=== PATIENT | male | born 1990 | race Caucasian/White ===

== ENCOUNTER 2021-03-06 01:50 | Inpatient (IN) | payer MEDICARE, OTHER ==
[2021-03-06] MEDS ORDERED: ACETAMINOPHEN TAB 500 MG TAB PO STA (01:54)
[2021-03-06] MEDS ORDERED: VANCOMYCIN IV PER PHARMACY 1 EACH MISC MISCELLANE PRN (01:55)
--- NOTE | 2021-03-06 01:59 | ED ---
Chest Pain HPI - General Stated Complaint: Chest Pain Time Seen by Provider: 03/06/21 01:54 Source: RN notes reviewed, old records reviewed Mode of arrival: EMS Limitations: no limitations - History of Present Illness Initial Comments: This is a 30-year-old male DF for evaluation patient does abuse heroin, patient coming in for fever altered mental status not acting appropriately. Patient's brought in by EMS patient's unable to give history does complain of chest pain bodyaches body pain other than illicit drug history patient has no medical history MD Complaint: chest pain, other (Bodyaches and pain) -: unknown Onset: associated with drug use Pain Location: substernal Severity scale (1-10): 7 Quality: tightness, heaviness Consistency: constant Improves With: nothing Worsens With: nothing Context: recent illness Anginal Symptoms: nausea, vomiting, diaphoresis, dyspnea Other Symptoms: palpitations Treatments Prior to Arrival: none - Related Data Home Medications Medication Instructions Recorded Confirmed No Known Home Medications 03/06/21 03/06/21 Allergies Allergy/AdvReac Type Severity Reaction Status Date / Time tramadol [From Ultram] AdvReac Mild Unknown Verified 03/06/21 06:27 Review of Systems ROS Statement: Those systems with pertinent positive or pertinent negative responses have been documented in the HPI. ROS Other: All systems not noted in ROS Statement are negative. EKG Findings - EKG Comments: EKG Findings:: EKG sinus tachycardia 132 AR 166 QRS 90 QTC 426 Past Medical History - Past Family History Father Additional Family Medical History / Comment(s): Father lives in [place] and had an injury and is disabled. Mother Family Medical History: Vascular Disorder Additional Family Medical History / Comment(s): Mother of a brain aneurysm. Sister(s) Family Medical History: No Reported History Additional Family Medical History / Comment(s): pt lives with his sister. General Exam General appearance: alert, anxious, in distress Head exam: Present: atraumatic, normocephalic, normal inspection Eye exam: Present: normal appearance, PERRL, EOMI. Absent: scleral icterus, conjunctival injection, periorbital swelling ENT exam: Present: normal exam, mucous membranes dry Neck exam: Present: normal inspection. Absent: tenderness, meningismus, lymphadenopathy Respiratory exam: Present: normal lung sounds bilaterally. Absent: respiratory distress, wheezes, rales, rhonchi, stridor Cardiovascular Exam: Present: normal rhythm, tachycardia, normal heart sounds. Absent: systolic murmur, diastolic murmur, rubs, gallop, clicks GI/Abdominal exam: Present: soft, normal bowel sounds. Absent: distended, t enderness, guarding, rebound, rigid Extremities exam: Present: normal inspection, full ROM, normal capillary refill. Absent: tenderness, pedal edema, joint swelling, calf tenderness Back exam: Present: normal inspection Neurological exam: Present: alert, oriented X3, CN II-XII intact Psychiatric exam: Present: normal affect, normal mood Skin exam: Present: warm, dry, intact, normal color. Absent: rash Course Vital Signs 03/06/21 03/06/21 03/06/21 01:57 03:29 04:48 Temperature 102.7 F H 98.8 F Pulse Rate 140 H 128 H 123 H Respiratory 22 22 24 Rate Blood Pressure 114/78 107/71 109/71 O2 Sat by Pulse 96 97 97 Oximetry 03/06/21 03/06/21 03/06/21 06:18 07:49 08:00 Temperature 98.3 F Pulse Rate 125 H 125 H 125 H Respiratory 22 22 22 Rate Blood Pressure 120/84 110/70 O2 Sat by Pulse 100 100 100 Oximetry 03/06/21 03/06/21 03/06/21 09:00 10:00 11:00 Temperature Pulse Rate 118 H 114 H 120 H Respiratory 22 22 22 Rate Blood Pressure 114/77 119/74 O2 Sat by Pulse 100 100 100 Oximetry 03/06/21 03/06/21 03/06/21 12:00 13:00 14:00 Temperature Pulse Rate 118 H 122 H 122 H Respiratory 22 22 22 Rate Blood Pressure 126/87 O2 Sat by Pulse 100 100 100 Oximetry 03/06/21 03/06/21 03/06/21 15:00 16:00 17:00 Temperature Pulse Rate 110 H 125 H 128 H Respiratory 22 22 22 Rate Blood Pressure 125/89 O2 Sat by Pulse 100 100 100 Oximetry 03/06/21 17:15 Temperature 98.3 F Pulse Rate 128 H Respiratory 22 Rate Blood Pressure 125/89 O2 Sat by Pulse 100 Oximetry - Reevaluation(s) Reevaluation #1: Medical record is reviewed Patient remains in severe distress Significantly altered secondary to likely mild drug ingestion currently with severe fever likely bacteremia Chest Pain MDM - MDM 30 male to the ER for chest pain patient has likely bacteremia secondary to IV drug abuse. Patient will be admitted on IV antibiotics Critical Care Time Critical Care Time: Yes Total Critical Care Time: 31 Disposition Clinical Impression: Fever, Bacteremia, Sepsis Disposition: ADMITTED IP TO THIS HOSP Condition: Fair Is patient prescribed a controlled substance at d/c from ED?: No
[2021-03-06] MEDS ORDERED: VANCOMYCIN 1,250 MG in SODIUM CHLORIDE 0.9% 250 ML IVPB STA (02:10)
--- NOTE | 2021-03-06 02:10 | XR ---
EXAM: XR Chest, 1 View CLINICAL HISTORY: ITS.REASON XR Reason: Suspected COVID-19 pneumonia TECHNIQUE: Frontal view of the chest. COMPARISON: No relevant prior studies available. FINDINGS: Lungs: Bilateral patchy opacities. Pleural space: No acute findings Heart: No cardiomegaly. Bones/joints: No acute findings. IMPRESSION: Bilateral patchy opacities.
[2021-03-06] MEDS ORDERED: SODIUM CHLORIDE 0.9% 1,000 ML IV ONE (02:24)
[2021-03-06] MEDS ORDERED: HYDROmorphone 1 MG/ML 1 ML SYRINGE IVP PRN ×2 (02:54)
[2021-03-06] MEDS ORDERED: DIAZEPAM 5 MG/ML 2 ML INJ IVP STA (02:54)
[2021-03-06 03:09] LABS: Basophils % (A) 0 %; Eosinophils % (A) 0 %; HCT 37.3 % (39.0-53.0); HGB 12.2 gm/dL (13.0-17.5); Lymphocytes # (A) 0.4 k/uL (1.0-4.8); Lymphocytes % (A) 4 %; MCH 28.9 pg (25.0-35.0); MCHC 32.7 g/dL (31.0-37.0); MCV 88.4 fL (80.0-100.0); Mean Platelet Volume 9.5; Monocytes # (A) 0.6 k/uL (0-1.0); Monocytes % (A) 6 %; Neutrophils # (A) 8.1 k/uL (1.3-7.7); Neutrophils % (A) 88 %; RBC 4.22 m/uL (4.30-5.90); RDW 14.9 % (11.5-15.5); WBC 9.3 k/uL (3.8-10.6)
[2021-03-06 03:18] LABS: ALT 13 U/L (4-49); AST 23 U/L (17-59); African American GFR (CKD) >90 (>60 ml/min/1.73 sqM); Albumin 3.4 g/dL (3.5-5.0); Alkaline Phosphatase 138 U/L (38-126); Anion Gap 10 mmol/L; Blood Urea Nitrogen 20 mg/dL (9-20); Calcium 8.6 mg/dL (8.4-10.2); Carbon Dioxide 26 mmol/L (22-30); Chloride 91 mmol/L (98-107); Glucose 123 mg/dL (74-99); LDH 743 U/L (313-618); Magnesium 1.6 mg/dL (1.6-2.3); Non-African American GFR(CKD) >90 (>60 ml/min/1.73 sqM); Potassium 3.4 mmol/L (3.5-5.1); Sodium 127 mmol/L (137-145); Total Bilirubin 1.1 mg/dL (0.2-1.3); Total Protein 6.4 g/dL (6.3-8.2)
[2021-03-06 03:28] LABS: Platelet Count 55 k/uL (150-450)
[2021-03-06 03:54] LABS: C Reactive Protein 26.7 mg/dL (<1.0)
[2021-03-06] MEDS: SODIUM CHLORIDE 0.9% 500 ML 500 ML IV SCH ×2 (04:51→06:36)
[2021-03-06] MEDS: SODIUM CHLORIDE 0.9% 1,000 ML IV SCH ×3 (05:19→21:21)
[2021-03-06] MEDS ORDERED: HYDROmorphone 1 MG/ML 1 ML SYRINGE IVP STA (06:23)
[2021-03-06] MEDS ORDERED: ONDANSETRON 4 MG/2 ML VIAL IVP PRN (07:21)
[2021-03-06] MEDS ORDERED: POTASSIUM CHLORIDE ER 20 MEQ TAB.ER PO STA (07:22)
[2021-03-06] MEDS: ENOXAPARIN 40 MG/0.4 ML SYRINGE SQ SCH (07:46)
[2021-03-06] MEDS: MAGNESIUM OXIDE 400 MG TAB PO SCH ×2 (07:46→21:21)
[2021-03-06] MEDS: ACETAMINOPHEN TAB 325 MG TAB PO PRN (07:46)
[2021-03-06 08:05] LABS: Appearance,Urine Clear (Clear); Bacteria,Urine Rare /hpf; Bilirubin,Urine Negative (Negative); Blood,Urine Small (Negative); Color,Urine Yellow; Glucose,Urine (UA) Negative (Negative); Ketones,Urine Negative (Negative); Leukocyte Esterase,Urine Negative (Negative); Mucus,Urine Rare /hpf; Nitrite,Urine Negative (Negative); Protein,Urine Trace (Negative); RBC,Urine 1 /hpf (0-5); Specific Gravity,Urine 1.005 (1.001-1.035); WBC,Urine <1 /hpf (0-5)
--- NOTE | 2021-03-06 08:13 | P.HPIM ---
History of Present Illness H&P Date: 03/06/21 Chief Complaint: Nonspecific pain This is a 30-year-old male with past medical history of IV heroin use who presented to the emergency room with nonspecific pain in his right hip and his chest. Patient was awake and alert when I saw him. I saw him in the emergency room. He is a very poor historian. He said the EMS brought him into the hospital. He was not cooperative with answering my questions and kept complaining about pain and was requesting IV pain medications. He admitted that he last used IV heroin approximately 12 hours ago. He denies any fevers or chills otherwise. He was evaluated in the ER and was found to have evidence of sepsis without septic shock. He will be admitted to the hospital for further management. Review of Systems Review of system: 14 points review of systems were obtained and were negative except to what were mentioned in the HPI. Past Medical History Additional Past Medical History / Comment(s): Osteomyletis, infected heart valve. History of Any Multi-Drug Resistant Organisms: None Reported Past Surgical History: Orthopedic Surgery Additional Past Surgical History / Comment(s): Hip Past Psychological History: No Psychological Hx Reported, Anxiety Smoking Status: Current every day smoker Past Alcohol Use History: Occasional Past Drug Use History: Heroin, Marijuana, Methamphetamine, Opiates Medications and Allergies Home Medications Medication Instructions Recorded Confirmed Type No Known Home Medications 03/06/21 03/06/21 History Allergies Allergy/AdvReac Type Severity Reaction Status Date / Time tramadol [From Ultram] AdvReac Mild Unknown Verified 03/06/21 06:27 Physical Exam Vitals: Vital Signs Temp Pulse Resp BP Pulse Ox 03/06/21 07:49 98.3 F 125 H 22 110/70 100 03/06/21 06:18 125 H 22 120/84 100 03/06/21 04:48 98.8 F 123 H 24 109/71 97 03/06/21 03:29 128 H 22 107/71 97 03/06/21 01:57 102.7 F H 140 H 22 114/78 96 Intake and Output 03/05/21 03/06/21 03/06/21 22:59 06:59 14:59 Other: Weight 68.039 kg General: The patient is awake and alert, in no distress Eye: there is normal conjunctiva bilaterally. Neck: The neck is supple, there is no JVD. Cardiovascular: Normal S1-S2, no S3-S4, no murmurs. Respiratory: Lungs clear to auscultation bilaterally Gastrointestinal: Abdomen is soft, nontender Musculoskeletal: There is no pedal edema. Neurological:. Speech is normal. Skin: Skin is warm and dry Results CBC & Chem 7: 03/06/21 02:03/06/21 02:26 Labs: Abnormal Lab Results - Last 24 Hours (Table) 03/06/21 03/06/21 03/06/21 Range/Units 02: 02: 07:40 RBC 4.22 L (4.30-5.90) m/uL Hgb 12.2 L (13.0-17.5) gm/dL Hct 37.3 L (39.0-53.0) % Plt Count 55 L (150-450) k/uL Neutrophils # 8.1 H (1.3-7.7) k/uL Lymphocytes # 0.4 L (1.0-4.8) k/uL Sodium 127 L (137-145) mmol/L Potassium 3.4 L (3.5-5.1) mmol/L Chloride 91 L (98-107) mmol/L Glucose 123 H (74-99) mg/dL Alkaline Phosphatase 138 H (38-126) U/L Lactate Dehydrogenase 743 H (313-618) U/L C-Reactive Protein 26.7 H (<1.0) mg/dL Albumin 3.4 L (3.5-5.0) g/dL Urine Protein Trace H (Negative) Urine Blood Small H (Negative) Urine Bacteria Rare H (None) /hpf Urine Mucus Rare H (None) /hpf Assessment and Plan Assessment: This is a 30-year-old male with past medical history noted below that presented to the emergency room with chest pain. Patient was evaluated in the ER and admitted to the hospital for further management of his medical problems noted below. 1. Severe sepsis without septic shock: Lactic acid was not ordered in the ER I would order one stat. Source of infection possibly underlying pneumonia versus bacteremia. Urinalysis unremarkable. Covid-19 and influenza screen negative. 2. Suspected underlying pneumonia, started on broad spectrum antibiotic with vancomycin and ceftriaxone. I ordered pro-calcitonin for further evaluation. Blood culture sent and pending. 3. Chest pain, mostly atypical in nature. 12-lead EKG showed no acute ischemic changes. Serial troponin negative 2. I would obtain d-dimer for further evaluation 4. Heroin abuse, counseled extensively to quit. I started the patient on 0.1 mg of clonidine 3 times a day for withdrawal symptoms 5. Hypovolemic hyponatremia, continue IV fluid hydration 6. Hypokalemia and hypomagnesemia, replacement ordered 7. DVT prophylaxis with subcu Lovenox Today, patient was exhibiting IV pain medication seeking behavior. I counseled him extensively that he cannot get IV pain medication and we can use [place] for nonspecific pain. We will continue supportive care otherwise. Aggressive IV fluid hydration with normal saline at 130 met per hour. Repeat lab work in the morning.
[2021-03-06] MEDS ORDERED: HYDROcodone/APAP 5-325MG 1 EACH TAB PO PRN (09:37)
[2021-03-06] MEDS ORDERED: cloNIDine HCL 0.2 MG TAB PO SCH (09:45)
[2021-03-06] MEDS: cloNIDine HCL 0.1 MG TAB PO SCH ×3 (10:04→21:21)
[2021-03-06] MEDS: VANCOMYCIN 1,250 MG in SODIUM CHLORIDE 0.9% 250 ML IVPB SCH ×2 (11:35→17:05)
--- NOTE | 2021-03-06 12:34 | ECHOF ---
Referral Reason:endocarditis MEASUREMENTS -------- HEIGHT: 170.2 cm WEIGHT: 72.6 kg BP: IVSd: 1.1 cm (0.6 - 1.1) LVIDd: 4.3 cm (3.9 - 5.3) LVPWd: 1.1 cm (0.6 - 1.1) IVSs: 1.3 cm LVIDs: 3.2 cm LVPWs: 1.7 cm LA Diam: 3.0 cm (2.7 - 3.8) Ao Diam: 3.5 cm (2.0 - 3.7) AV Cusp: 2.2 cm (1.5 - 2.6) LA Diam: 3.9 cm (2.7 - 3.8) MV EXCURSION: 26.483 mm (> 18.000) MV EF SLOPE: 125 mm/s (70 - 150) EPSS: 0.2 cm MV E Isma: 1.07 m/s MV DecT: 125 ms MV A Isma: 1.21 m/s MV E/A Ratio: 0.89 RAP: 5.00 mmHg RVSP: 46.55 mmHg FINDINGS -------- Sinus rhythm. Undetermined rhythm. This was a technically good study. LV size, wall thickness and systolic function are normal, with an EF greater than 55%. The left albina tricular size is normal. The left atrial size is normal. The right atrial size is normal. The aortic valve is trileaflet, and appears structurally normal. No aortic stenosis or regurgitation. Mild mitral regurgitation is present. Cannot exclude vegeation on he PMVL. Moderate tricuspid regurgitation present. There is mild pulmonary hypertension. The right ventric ular systolic pressure, as measured by Doppler, is 46.55mmHg. Vegetation noted on TV Leaflets. There is no pulmonic regurgitation present. The aortic root size is normal. There is no pericardial effusion. CONCLUSIONS -------- 1. LV size, wall thickness and systolic function are normal, with an EF greater than 55%. 2. The left atrial size is normal. 3. The aortic valve is trileaflet, and appears structurally normal. No aortic stenosis or regurgitati on. 4. Mild mitral regurgitation is present. 5. Cannot exclude vegeation on he PMVL. 6. Moderate tricuspid regurgitation present. 7. There is mild pulmonary hypertension. 8. Vegetation noted on TV Leaflets. 9. There is no pericardial effusion. TRAVEL PTA: Marialuisa Durant RDCS
--- NOTE | 2021-03-06 15:56 | CT ---
EXAMINATION TYPE: CT chest angio for PE DATE OF EXAM: 03/06/2021 COMPARISON: Chest x-ray earlier today. HISTORY: Shortness of breath and chest pain CT DLP: 268.7 mGycm Automated exposure control for dose reduction was used. CONTRAST: CT Chest for pulmonary embolism performed with with IV Contrast, patient injected with 100 mL of Isov ue 370. FINDINGS: LUNGS: Correlating with recent x-ray there are multifocal groundglass opacities and more prominent or ganizing consolidations bilaterally. There are some more suspicious areas of nodularity and/or nodula r consolidation to need to be followed to resolution. No pleural effusion or pneumothorax seen bilate rally. MEDIASTINUM: There is suboptimal study with most dense contrast in SVC. Opacification of thoracic a fransisca without aneurysm or dissection. Suboptimal opacification of pulmonary arteries without central p ulmonary embolism, smaller segmental and subsegmental PE cannot be excluded on this study There are p rominent and enlarged bilateral hilar lymph nodes along with prominent prevascular, AP window, and lee bcarinal lymph nodes. No pericardial effusion is seen. OTHER: Visualized portion of the liver and spleen are prominent. Slight scoliotic curvature. IMPRESSION: 1. Suboptimal study, no large central pulmonary embolism. Cannot exclude smaller segmental and subseg mental pulmonary emboli on this study. 2. Bilateral multifocal organizing consolidations and less prominent groundglass opacities could refl ect product of covid-19 infection, other infectious etiologies not excluded. Septic emboli is in diff erential. Reactive thoracic adenopathy suspected. Follow-up study advised to rule out underlying nodu les. Suspected hepatosplenomegaly, correlate clinically.
[2021-03-06] MEDS: METHADONE 10 MG TAB PO SCH ×2 (16:39→21:20)
[2021-03-06] MEDS ORDERED: ACETAMINOPHEN IV (For NPO) 1,000 MG in EMPTY BAG 1 BAG IVPB STA (17:49)
[2021-03-07] MEDS: VANCOMYCIN 1,250 MG in SODIUM CHLORIDE 0.9% 250 ML IVPB SCH ×2 (01:03→09:46)
[2021-03-07] MEDS: ACETAMINOPHEN TAB 325 MG TAB PO PRN ×2 (03:22→14:46)
[2021-03-07 07:41] LABS: Glucose,Whole Blood 138 mg/dL (75-99)
[2021-03-07] MEDS ORDERED: VANCOMYCIN TROUGH DUE 1 EACH MISC MISCELLANE ONE (08:00)
[2021-03-07] MEDS: METHADONE 10 MG TAB PO SCH ×2 (08:13→21:04)
[2021-03-07] MEDS: MAGNESIUM OXIDE 400 MG TAB PO SCH ×2 (08:14→21:05)
[2021-03-07] MEDS: cloNIDine HCL 0.1 MG TAB PO SCH ×3 (08:14→21:04)
[2021-03-07 08:23] LABS: African American GFR (CKD) >90 (>60 ml/min/1.73 sqM); Anion Gap 5 mmol/L; Blood Urea Nitrogen 7 mg/dL (9-20); Calcium 7.8 mg/dL (8.4-10.2); Carbon Dioxide 28 mmol/L (22-30); Chloride 101 mmol/L (98-107); Glucose 113 mg/dL (74-99); Magnesium 1.9 mg/dL (1.6-2.3); Non-African American GFR(CKD) >90 (>60 ml/min/1.73 sqM); Potassium 3.1 mmol/L (3.5-5.1); Sodium 134 mmol/L (137-145)
[2021-03-07] MEDS: ENOXAPARIN 40 MG/0.4 ML SYRINGE SQ SCH (09:45)
[2021-03-07] MEDS: SODIUM CHLORIDE 0.9% 1,000 ML IV SCH ×2 (09:46→21:07)
[2021-03-07] MEDS ORDERED: POTASSIUM CHLORIDE ER 20 MEQ TAB.ER PO STA (10:28)
--- NOTE | 2021-03-07 10:37 | P.PN ---
Subjective Progress Note Date: 03/07/21 Patient is doing well today. He is still having fever overnight. He said that he did not sleep well last night. No acute events overnight reported by nursing staff. Objective - Vital Signs Vital signs: Vital Signs Temp 98.7 F 03/07/21 08:00 Pulse 116 H 03/07/21 08:14 Resp 20 03/07/21 08:00 BP 120/66 03/07/21 08:00 Pulse Ox 99 03/07/21 08:00 Intake & Output 03/06/21 03/07/21 03/07/21 18:59 06:59 18:59 Intake Total 100 Output Total 750 Balance -650 Weight 68.039 kg Intake: Oral 100 Output: Urine 750 Other: # Voids 2 - Exam General: The patient is awake and alert, in no distress Eye: there is normal conjunctiva bilaterally. Neck: The neck is supple, there is no JVD. Cardiovascular: Normal S1-S2, no S3-S4, no murmurs. Respiratory: Lungs clear to auscultation bilaterally Gastrointestinal: Abdomen is soft, nontender Musculoskeletal: There is no pedal edema. Neurological:. Speech is normal. Skin: Skin is warm and dry - Labs CBC & Chem 7: 03/06/21 02:26 03/07/21 08:00 Labs: Abnormal Lab Results - Last 24 Hours (Table) 03/06/21 03/06/21 03/07/21 Range/Units 07:51 10:32 07:40 D-Dimer 6.27 H (<0.60) mg/L FEU Sodium (137-145) mmol/L Potassium (3.5-5.1) mmol/L BUN (9-20) mg/dL Creatinine (0.66-1.25) mg/dL Glucose (74-99) mg/dL POC Glucose (mg/dL) 138 H (75-99) mg/dL Calcium (8.4-10.2) mg/dL Procalcitonin 1.64 H (0.02-0.09) ng/mL 03/07/21 Range/Units 08:00 D-Dimer (<0.60) mg/L FEU Sodium 134 L (137-145) mmol/L Potassium 3.1 L (3.5-5.1) mmol/L BUN 7 L (9-20) mg/dL Creatinine 0.60 L (0.66-1.25) mg/dL Glucose 113 H (74-99) mg/dL POC Glucose (mg/dL) (75-99) mg/dL Calcium 7.8 L (8.4-10.2) mg/dL Procalcitonin (0.02-0.09) ng/mL Microbiology - Last 24 Hours (Table) 03/06/21 02:26 Blood Culture Gram Stain - Preliminary Blood Blood Culture - Preliminary Presumptive MRSA 03/06/21 02:26 Blood Culture Gram Stain - Preliminary Blood Blood Culture - Preliminary Presumptive MRSA Streptococcus species 03/06/21 15:56 Blood Culture Gram Stain - Preliminary Blood 03/06/21 15:56 Blood Culture - Final Blood 03/06/21 02:26 Blood Culture - Final Blood 03/06/21 02:26 Blood Culture - Final Blood Assessment and Plan Assessment: This is a 30-year-old male with past medical history noted below that presented to the emergency room with chest pain. Patient has a history of IV heroin drug use and (according to his report) was hospitalized at [facility] in [place] in December and diagnosed with endocarditis and subsequently discharged to a nursing facility with a PICC line for IV antibiotic. Patient admitted that he started using IV drugs again. he was evaluated in the ER and admitted to the hospital for further management of his medical problems noted below. 1. 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 Sepsis without septic shock, lactic acid normal in the ER. Received aggressive IV fluid hydration and antibiotic. Urinalysis unremarkable. Covid-19 and influenza screen negative. 3. Chest pain, mostly atypical in nature. 12-lead EKG showed no acute ischemic changes. Serial troponin negative 2. CT angiogram showed no evidence of a large PE (suboptimal study unable to rule out out small emboli) 4. Heroin abuse, counseled extensively to quit. I started the patient on 0.1 mg of clonidine 3 times a day for withdrawal symptoms with minimal improvement. I added methadone 10 mg twice daily 5. Hypovolemic hyponatremia, improved with IV fluid hydration 6. Hypokalemia and hypomagnesemia, replacement ordered 7. DVT prophylaxis with subcu Lovenox On admission, patient was exhibiting IV pain medication seeking behavior. I counseled him extensively that he cannot get IV pain medication. We will continue supportive care otherwise.
--- NOTE | 2021-03-07 11:31 | P.CRDCN ---
History of Present Illness History of present illness: HISTORY OF PRESENTING ILLNESS This is a pleasant 30-year-old male past medical history significant for chronic heroin use, recent endocarditis, left hip osteomyelitis status post surgical removal and chronic nicotine dependence. He denies prior history of coronary artery disease and does not follow in the office with a lapidarist. We have been asked to see in consultation for BRET. In December 2020 he was treated for infective endocarditis at [facility] with IV antibiotics. Exact details are unavailable. Apparently after discharge he continued to use IV heroin and presented to the hospital with symptoms of chest discomfort. He underwent echocardiogram revealing preserved LV systolic function with ejection fraction greater than 55% with vegetation noted on the tricuspid valve as well as possible vegetation on the mitral valve. Blood cultures are positive for Streptococcus and Staphylococcus aureus. He is currently maintained on IV antibiotics and infectious disease consult is pending. He is seen and examined resting comfortably lying flat in bed in no acute distress. He is quite lethargic at the time of our exam and is not keeping his eyes open to answer questions. He does wake to stimuli however frequently falls back asleep. He last ate last night at 9 PM however states he has been drinking pop all night. He complains of feeling short of breath and having chest discomfort. DIAGNOSTICS EKG reveals sinus tachycardia heart rate of 132. Chest xray bilateral patchy opacity's. CTA reveals no large central PE however cannot exclude smaller segmental and subsegmental PEs with bilateral multifocal organizing consolidations and ground glass opacity's could be related to COVID-19 however septic emboli in the differential. Laboratory reviewed, WBC 9.3, hemoglobin 12.2, platelets 55, d-dimer 6.2, sodium 134, potassium 3.1, creatinine 0.6, magnesium 1.9, pro-calcitonin 1.64, troponin negative 2, NT proBNP 245. He takes no daily cardiac medications. REVIEW OF SYSTEMS At the time of my exam: CONSTITUTIONAL: Denies fever or chills. CARDIOVASCULAR: Complains of chest pain and shortness of breath. Denies orthopnea, PND or palpitations. RESPIRATORY: Denies cough. GASTROINTESTINAL: Denies abdominal pain, diarrhea, constipation, nausea or vomiting. MUSCULOSKELETAL: Denies myalgias. NEUROLOGIC: Denies numbness, tingling, headacbe or weakness. ENDOCRINE: Denies fatigue, weight change, polydipsia or polyurina. GENITOURINARY: Denies burning, hematuria or urgency with micturation. HEMATOLOGIC: Denies history of anemia or bleeding. PHYSICAL EXAMINATION Blood pressure 120/66 heart rate 116 afebrile and maintaining oxygen saturation on nasal cannula. CONSTITUTIONAL: No apparent distress. HEENT: Head is normocephalic. Pupils are equal, round. Sclerae anicteric. Mucous membranes of the mouth are moist. No JVD. No carotid bruit. CHEST EXAMINATION: Lungs are clear to auscultation. No chest wall tenderness is noted on palpation or with deep breathing. HEART EXAMINATION: Regular rate and rhythm. Tachycardic. S1, S2 heard. Murmur of TR and the lower sternal border, no gallops or rub. ABDOMEN: Soft, nontender. Positive bowel sounds. EXTREMITIES: 2+ peripheral pulses, no lower extremity edema and no calf tenderness. NEUROLOGIC EXAMINATION: Patient is awake, alert and oriented x3. ASSESSMENT Infective endocarditis Thrombocytopenia Febrile illness Bacteremia Septic emboli Hypokalemia History of IV drug abuse Chronic nicotine dependence PLAN Transthoracic echo has been reviewed, requested records from previous hospital admission at [facility]. Specifically would like to review the BRET to see if there are any changes noted from current transthoracic echo performed here. He has been drinking fluids all night, given his persistent lethargy we would not perform BRET today due to risk of aspiration. Possibly tomorrow. However, given septic emoboli he would benefit from evaluation at tertiary care center, likely [facility] where he was previously treated. Request CT surgery recommendations. Further recommendations to follow based on clinical course. Thank you kindly for this consultation. Nurse Practitioner note has been reviewed, I agree with a documented findings and plan of care. Patient was seen and examined. Past Medical History Additional Past Medical History / Comment(s): Infected cardiac valve per pt a couple months ago-states he never followed up, L hip osteomylitis/hip joint surgically removed. History of Any Multi-Drug Resistant Organisms: None Reported Past Surgical History: Orthopedic Surgery Additional Past Surgical History / Comment(s): 2 R hip surgeries and eventual removal of R hip joint. Past Anesthesia/Blood Transfusion Reactions: No Reported Reaction Smoking Status: Current every day smoker - Past Family History Father Additional Family Medical History / Comment(s): Father lives in [place] and had an injury and is disabled. Mother Family Medical History: Vascular Disorder Additional Family Medical History / Comment(s): Mother of a brain aneurysm. Medications and Allergies Home Medications Medication Instructions Recorded Confirmed Type No Known Home Medications 03/06/21 03/06/21 History Allergies Allergy/AdvReac Type Severity Reaction Status Date / Time tramadol [From Ultram] AdvReac Mild Unknown Verified 03/06/21 06:27 Physical Exam Vitals: Vital Signs Temp Pulse Pulse Resp BP BP Pulse Ox 03/07/21 08:14 116 H 03/07/21 08:00 98.7 F 116 H 20 120/66 99 03/07/21 03:20 101.6 F H 132 H 25 H 135/79 96 03/06/21 20:04 98.7 F 121 H 19 118/72 97 03/06/21 20:00 128 H 18 03/06/21 17:36 101.8 F H 128 H 18 126/75 99 03/06/21 17:15 98.3 F 128 H 22 125/89 100 03/06/21 17:00 128 H 22 100 03/06/21 16:00 125 H 22 125/89 100 03/06/21 15:00 110 H 22 100 03/06/21 14:00 122 H 22 100 03/06/21 13:00 122 H 22 126/87 100 03/06/21 12:00 118 H 22 100 03/06/21 11:00 120 H 22 119/74 100 Intake and Output 03/06/21 03/07/21 03/07/21 22:59 06:59 14:59 Intake Total 100 Output Total 750 Balance -650 Intake: Oral 100 Output: Urine 750 Other: # Voids 2 2 Results 03/06/21 02:26 03/07/21 08:00 Comprehensive Metabolic Panel 03/07/21 Range/Units 08:00 Sodium 134 L (137-145) mmol/L Potassium 3.1 L (3.5-5.1) mmol/L Chloride 101 (98-107) mmol/L Carbon Dioxide 28 (22-30) mmol/L BUN 7 L (9-20) mg/dL Creatinine 0.60 L (0.66-1.25) mg/dL Glucose 113 H (74-99) mg/dL Calcium 7.8 L (8.4-10.2) mg/dL Current Medications Generic Name Dose Route Start Last Admin Trade Name Freq PRN Reason Stop Dose Admin Acetaminophen 650 mg 03/06/21 07:21 03/07/21 03:22 Acetaminophen Tab 325 Mg Tab PO 650 mg Q6HR PRN Administration Fever and/ or Pain Clonidine 0.1 mg 03/06/21 09:45 03/07/21 08:14 Clonidine Hcl 0.1 Mg Tab PO 0.1 mg TID GORDON Administration Enoxaparin Sodium 40 mg 03/06/21 09:00 03/07/21 09:45 Enoxaparin 40 Mg/0.4 Ml Syringe SQ 40 mg DAILY GORDON Administration Sodium Chloride 1,000 mls @ 75 mls/hr 03/06/21 04:45 03/07/21 09:46 Saline 0.9% IV 75 mls/hr .[id number] GORDON Administration Ceftriaxone Sodium 1 gm/ 50 mls @ 100 mls/hr 03/06/21 12:00 03/06/21 23:29 Sodium Chloride IVPB 100 mls/hr Q12H GORDON Administration Vancomycin HCl 1,250 mg/ 250 mls @ 125 mls/hr 03/06/21 09:00 03/07/21 09:46 Sodium Chloride IVPB 125 mls/hr Q8H GORDON Administration Magnesium Oxide 400 mg 03/06/21 09:00 03/07/21 08:14 Magnesium Oxide 400 Mg Tab PO 400 mg BID GORDON Administration Methadone HCl 10 mg 03/06/21 16:00 03/07/21 08:13 Methadone 10 Mg Tab PO 10 mg BID GORDON Administration Intake and Output 03/06/21 03/07/21 03/07/21 22:59 06:59 14:59 Intake Total 100 Output Total 750 Balance -650 Intake: Oral 100 Output: Urine 750 Other: # Voids 2 2 03/06/21 02:26 03/07/21 08:00
[2021-03-07 11:43] LABS: Glucose,Whole Blood 124 mg/dL (75-99)
[2021-03-07 13:00] VITALS: BMI 23.5
--- NOTE | 2021-03-07 14:08 | P.GSCN ---
History of Present Illness Consult date: 03/07/21 Reason for Consult: Endocarditis, recurrent with septic emboli. Requesting physician: Magno Guadalupe History of present illness: This is a 30-year-old gentleman who does not follow with a primary care physician on a regular basis as an outpatient. He is a past medical history significant for recent endocarditis, daily IV drug abuse with use of heroin and methamphetamine, chronic hepatitis C and chronic ongoing tobacco abuse. He also reports that he has a history of osteomyelitis to his left hip. He presented to the emergency department here at [facility] via EMS with complaints of fever, chest pain and shortness of breath. The patient also reports that he was recently hospitalized at [facility] with an infection to his heart in which she underwent IV antibiotic treatments which were to complete on 02/05/2021. The patient states that he was in a long-term care facility receiving these IV antibiotic treatments and left 2 days prior AGAINST MEDICAL ADVICE before finishing antibiotic course. He denies any chills, nausea, vomiting, diarrhea, headache, dizziness, presyncope or syncope. Currently he denies any complaints of chest pain although is having pain to his right shoulder where he reports to injecting his IV drugs. During his evaluation at his bedside on the fourth floor medical surgical unit the patient would open up his eyes with verbal stimuli although is lethargic and has trouble keeping his eyes open to complete his conversation. On presentation to the [facility] a chest x-ray was completed which showed bilateral patchy opacities. A 12-lead EKG was completed which showed sinus tachycardia with a heart rate of 132 BPM. Initial laboratory results showed a WBC count 9.3, hemoglobin 12.2, hematocrit 37.3, platelets 55, neutrophils 8.1, d-dimer 6.27, sodium 127, potassium 3.4, chloride 91, glucose 123, LDH 743, C-reactive protein 26.7, pro- calcitonin 1.64, troponin less than 0.012 and his COVID-19 test showed not detected. For further evaluation 8 2-D echocardiogram was completed which showed his left ventricular size, wall thickness and systolic function to be normal with an ejection fraction greater than 55%, aortic valve shows no aortic stenosis or regurgitation, mild mitral regurgitation, a vegetation on the posterior mitral valve leaflet could not be excluded, moderate tricuspid valve regurgitation and a vegetation noted on the tricuspid valve leaflets and no pericardial effusion. A CT chest and she'll for PE was completed which showed no large central pulmonary embolism but could not exclude smaller segmental and subsegmental pulmonary emboli. It also demonstrated bilateral multifocal organizing consolidations and less prominent groundglass opacities which could reflect a product of COVID-19 infection, other infectious etiologies or septic emboli. Reactive thoracic adenopathy suspected, and suspected hepatosplenomegaly. Due to the patient's history of endocarditis, presenting symptoms and finding on the 2-D echocardiogram a consult was placed to Dr. Karli Cruz from cardiothoracic surgery for further evaluation and treatment recommendations. Review of Systems A 14 point review of systems was completed and was negative except as mentioned in the HPI. Past Medical History Additional Past Medical History / Comment(s): Infected cardiac valve per pt a couple months ago-states he never followed up, underwent IV antibiotics at that time but did not complete the course of antibiotics per the patient. History of L hip osteomylitis/hip joint surgically removed. History of Any Multi-Drug Resistant Organisms: None Reported Past Surgical History: Orthopedic Surgery Additional Past Surgical History / Comment(s): 2 hip surgeries and eventual removal of hip joint. Past Anesthesia/Blood Transfusion Reactions: No Reported Reaction Past Psychological History: No Psychological Hx Reported Smoking Status: Current every day smoker Past Alcohol Use History: None Reported Past Drug Use History: Heroin, Methamphetamine - Past Family History Father Additional Family Medical History / Comment(s): Father lives in [place] and had an injury and is disabled. Mother Family Medical History: Vascular Disorder Additional Family Medical History / Comment(s): Mother of a brain aneurysm. Sister(s) Family Medical History: No Reported History Additional Family Medical History / Comment(s): pt lives with his sister. Medications and Allergies Home Medications Medication Instructions Recorded Confirmed Type No Known Home Medications 03/06/21 03/06/21 History Allergies Allergy/AdvReac Type Severity Reaction Status Date / Time tramadol [From Ultram] AdvReac Mild Unknown Verified 03/06/21 06:27 Surgical - Exam Vital Signs Temp Pulse Resp BP Pulse Ox 102.7 F H 140 H 22 114/78 96 03/06/21 01:57 03/06/21 01:57 03/06/21 01:57 03/06/21 01:57 03/06/21 01:57 CONSTITUTIONAL: Appears no acute distress, cooperative HEENT: Head is normocephalic, pupils are equal and round. Sclerae are anicteric. Mucous membranes of the mouth are moist. No carotid bruit. No JVD. RESPIRATORY: Lungs sounds diminished bilaterally with few scattered crackles. Respirations are symmetrical and nonlabored. Currently on 2 L nasal cannula, oxygen saturations 99%. CARDIOVASCULAR: S1, S2 present, negative for S3, gallop or murmur. Tachycardic rate and regular rhythm. Palpable peripheral pulses bilaterally. No edema present. No calf pain or tenderness noted. GASTROINTESTINAL: Abdomen soft, nontender, nondistended. Active bowel sounds present 4 quadrants. Tolerating diet. Positive bowel movement. INTEGUMENTARY: Skin is warm and dry with evidence of good perfusion. Right shoulder with small amount of erythema and warm and tender to touch. NEUROLOGIC: Cranial nerves II through XII intact. MUSKULOSKELETAL: Able to move all extremities, strength equal bilaterally. PSYCHIATRIC: Alert and oriented to person place and time, flat affect, intact judgment and insight. Falls asleep easily during conversation. Results - Labs 03/06/21 02:26 03/07/21 08:00 Abnormal Lab Results - Last 24 Hours (Table) 03/06/21 03/07/21 03/07/21 Range/Units 07:51 07:40 08:00 Sodium 134 L (137-145) mmol/L Potassium 3.1 L (3.5-5.1) mmol/L BUN 7 L (9-20) mg/dL Creatinine 0.60 L (0.66-1.25) mg/dL Glucose 113 H (74-99) mg/dL POC Glucose (mg/dL) 138 H (75-99) mg/dL Calcium 7.8 L (8.4-10.2) mg/dL Procalcitonin 1.64 H (0.02-0.09) ng/mL 03/07/21 Range/Units 11:37 Sodium (137-145) mmol/L Potassium (3.5-5.1) mmol/L BUN (9-20) mg/dL Creatinine (0.66-1.25) mg/dL Glucose (74-99) mg/dL POC Glucose (mg/dL) 124 H (75-99) mg/dL Calcium (8.4-10.2) mg/dL Procalcitonin (0.02-0.09) ng/mL Microbiology - Last 24 Hours (Table) 03/06/21 02:26 Blood Culture Gram Stain - Preliminary Blood Blood Culture - Preliminary Presumptive MRSA 03/06/21 02:26 Blood Culture Gram Stain - Preliminary Blood Blood Culture - Preliminary Presumptive MRSA Streptococcus species 03/06/21 15:56 Blood Culture Gram Stain - Preliminary Blood 03/06/21 15:56 Blood Culture - Final Blood 03/06/21 02:26 Blood Culture - Final Blood 03/06/21 02:26 Blood Culture - Final Blood Diabetes panel 03/07/21 Range/Units 08:00 Sodium 134 L (137-145) mmol/L Potassium 3.1 L (3.5-5.1) mmol/L Chloride 101 (98-107) mmol/L Carbon Dioxide 28 (22-30) mmol/L BUN 7 L (9-20) mg/dL Creatinine 0.60 L (0.66-1.25) mg/dL Glucose 113 H (74-99) mg/dL Calcium 7.8 L (8.4-10.2) mg/dL Calcium panel 03/07/21 Range/Units 08:00 Calcium 7.8 L (8.4-10.2) mg/dL Pituitary panel 03/07/21 Range/Units 08:00 Sodium 134 L (137-145) mmol/L Potassium 3.1 L (3.5-5.1) mmol/L Chloride 101 (98-107) mmol/L Carbon Dioxide 28 (22-30) mmol/L BUN 7 L (9-20) mg/dL Creatinine 0.60 L (0.66-1.25) mg/dL Glucose 113 H (74-99) mg/dL Calcium 7.8 L (8.4-10.2) mg/dL Adrenal panel 03/07/21 Range/Units 08:00 Sodium 134 L (137-145) mmol/L Potassium 3.1 L (3.5-5.1) mmol/L Chloride 101 (98-107) mmol/L Carbon Dioxide 28 (22-30) mmol/L BUN 7 L (9-20) mg/dL Creatinine 0.60 L (0.66-1.25) mg/dL Glucose 113 H (74-99) mg/dL Calcium 7.8 L (8.4-10.2) mg/dL - Imaging Chest x-ray: report reviewed, image reviewed CT scan - chest: report reviewed, image reviewed EKG: image reviewed Additional studies: 2-D echocardiogram results reviewed. Assessment and Plan Assessment: 1. Infective endocarditis, with recent history of endocarditis 2. Fever, secondary to above 3. Bacteremia with positive blood cultures showing presumptive MRSA 4. Thrombocytopenia 5. Sinus tachycardia, reactive secondary to sepsis and pain 6. Hypokalemia, potassium 3.1 today 7. Chronic ongoing IV drug abuse with heroin and methamphetamine 8. Chronic ongoing tobacco dependence 9. History of left hip osteomyelitis 10. Chronic hepatitis C Plan: The patient was seen and examined at his bedside on the medical surgical unit. His chart and diagnostics were reviewed. His case was discussed in detail with Dr. Karli Cruz from cardiothoracic surgery. Infectious disease has been consulted for antibiotic management, the patient is currently on Rocephin and vancomycin. Continue to follow blood cultures. Medical management and other comorbidities per primary care service recommendations. No class I surgical i ntervention is warranted at this time as the patient continues to use IV drugs and has a possible distal infection with a history of left hip osteomyelitis and also has pain and erythema to his right shoulder. Recommend consult to orthopedics for further evaluation of his left hip and right shoulder. Risks modification discussed with the patient including smoking cessation and IV drug abuse. The patient reports that he is willing to go for substance abuse counseling. We will continue to follow this patient on an as-needed basis. Thank you Dr. Guadalupe for this consult and we will look forward to working with you in the care of this patient. Time with Patient: Greater than 30
[2021-03-07 14:15] LABS: Basophils # (A) 0.04 X 10*3/uL (0.00-0.10); Basophils % (A) 0.3 %; Eosinophils # (A) 0.03 X 10*3/uL (0.04-0.35); Eosinophils % (A) 0.2 %; HCT 30.8 % (39.6-50.0); HGB 10.1 g/dL (13.0-17.0); Lymphocytes # (A) 1.09 X 10*3/uL (0.90-5.00); Lymphocytes % (A) 7.8 %; MCH 28.8 pg (27.0-32.0); MCHC 32.8 g/dL (32.0-37.0); MCV 87.7 fL (80.0-97.0); Mean Platelet Volume 13.2 fL (9.5-12.2); Monocytes # (A) 1.34 X 10*3/uL (0.20-1.00); Monocytes % (A) 9.6 %; Neutrophils # (A) 11.34 X 10*3/uL (1.80-7.70); Neutrophils % (A) 81.3 %; Platelet Count 62 X 10*3/uL (140-440); RBC 3.51 X 10*6/uL (4.40-5.60); RDW 14.8 % (11.5-14.5); WBC 13.95 X 10*3/uL (4.50-10.00)
[2021-03-07 14:16] LABS: Toxic Granulation 2+
[2021-03-07] MEDS: VANCOMYCIN 1,500 MG in SODIUM CHLORIDE 0.9% 250 ML IVPB SCH (17:25)
[2021-03-08] MEDS: VANCOMYCIN 1,500 MG in SODIUM CHLORIDE 0.9% 250 ML IVPB SCH ×3 (02:10→17:46)
[2021-03-08] MEDS ORDERED: ACETAMINOPHEN IV (For NPO) 1,000 MG in EMPTY BAG 1 BAG IVPB STA ×2 (05:42→16:39)
--- NOTE | 2021-03-08 06:15 | CONS ---
CONSULTATION DATE OF SERVICE: 03/07/2021 REASON FOR CONSULTATION: MRSA bacteremia. HISTORY OF PRESENT ILLNESS: The patient is a 30-year-old male with a past medical history of IV drug use in this patient was recently diagnosed with endocarditis and apparently completed a 6 week course of antibiotic at the end of January for which the patient was hospitalized at [facility] in [place] and subsequently completed antibiotic therapy in the long term. The patient did relapse and was using his IV drugs again presenting to [facility] ER yesterday morning for evaluation of pain to the right hip and chest area. The patient has been complaining of pain and asking for IV medication. Pain is mostly to the, at the time of evaluation, to the right shoulder area and inability of the patient to move his right shoulder. The patient described the pain to be sharp intensity almost 10/10 and no radiation. The patient denies any headache or URI symptoms. Shortness of breath and occasional cough. No nausea, no vomiting. No abdominal pain or any diarrhea. With these symptoms, the patient has been evaluated by the ER physician. On arrival to the ER, the patient did have a fever of 102 degrees Fahrenheit. The patient was tachycardic, not hypoxic and did have a white count of 9.3. Repeat is 13.95. Did have 6.27. Kidney function was normal. Procalcitonin was elevated. Urine was negative. Vital RSV and influenza PCR was negative. The patient did have a CT angiogram of the chest, which was suboptimal studies. Cannot exclude smaller segmental pulmonary emboli, bilateral multifocal organizing consolidation opacities could reflect Covid 19 versus emboli in the differential. The patient did have an echocardiogram completed which shows vegetation noted on the tricuspid valve leaflet. The patient has been treated with Rocephin and vancomycin. Blood culture currently positive with presumptive MRSA. Infectious disease was consulted for further management of antibiotic therapy. The patient himself is not a very good historian and most of the information has been extracted from the chart. REVIEW OF SYSTEMS: Positive points have been mentioned in HPI. Rest of the systems negative. PAST MEDICAL HISTORY: Tricuspid valve infected endocarditis, left hip osteomyelitis. PAST SURGICAL HISTORY: Two bilateral hip surgeries. SOCIAL HISTORY: Currently a smoker. Did admit to heroin and methamphetamine use. FAMILY HISTORY: Mother history of brain aneurysm. ALLERGIES: TRAMADOL. MEDICATIONS: The patient is currently on Tylenol, Catapres, Lovenox, Mag oxide, vancomycin pharmacy to dose and Rocephin. PHYSICAL EXAMINATION: Blood pressure is 123/70 with a pulse of 170, temperature 103.2. He is 93% on 2 L nasal cannula. General description is a middle-aged male lying in bed in no distress. No tachypnea or accessory muscles of respiration use. HEENT: Examination shows slight pallor. No scleral icterus. Oral mucous membrane is dry. NECK: Trachea central. No thyromegaly. LUNGS unlabored breathing. Clear to auscultation anteriorly with no wheeze or crackles. HEART: S1, S2. Regular rate and rhythm. ABDOMEN: Soft, no tenderness. No guarding. No rigidity. EXTREMITIES: No edema of the feet. SKIN EXAMINATION: No rash or mass palpable. Examination of the right shoulder area currently with no swelling, redness, warmth or tenderness. NEUROLOGIC: The patient is awake, alert, oriented times two. Mood and affect normal. LABS: Hemoglobin is 10.8, white count 13.95, D. dimer 6.27, BUN of 7, creatinine 0.60, potassium 3.1. Liver enzymes are normal. LDH was elevated. Urine was negative. CT angiogram and echocardiogram report mentioned above. 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 PLAN: 1. Blood cultures will be repeated to document clearance of bacteremia. 2. Vancomycin, pharmacy to dose, target of 15 while watching his kidney function closely. 3. We will follow on his clinical condition and culture to further adjust medication if needed. Thank you for this consultation. We will follow this patient along with you. MMODL / IJN: [id number] /
[2021-03-08] MEDS: ENOXAPARIN 40 MG/0.4 ML SYRINGE SQ SCH (07:05)
[2021-03-08] MEDS: METHADONE 10 MG TAB PO SCH ×2 (07:19→19:58)
[2021-03-08] MEDS: MAGNESIUM OXIDE 400 MG TAB PO SCH ×2 (07:19→19:58)
[2021-03-08] MEDS: cloNIDine HCL 0.1 MG TAB PO SCH ×3 (07:20→19:54)
[2021-03-08] MEDS: SODIUM CHLORIDE 0.9% 1,000 ML IV SCH (10:58)
[2021-03-08 12:03] LABS: African American GFR (CKD) 154.2 (60.0-200.0); Anion Gap 5.4 mmol/L (4.00-12.00); Calcium 7.5 mg/dL (8.7-10.3); Carbon Dioxide 26.6 mmol/L (21.6-31.8); Magnesium 1.5 mg/dL (1.5-2.4); Potassium 3.8 mmol/L (3.5-5.5)
[2021-03-08 12:52] LABS: Basophils # (A) 0.09 X 10*3/uL (0.00-0.10); Basophils % (A) 0.5 %; Eosinophils # (A) 0.05 X 10*3/uL (0.04-0.35); Eosinophils % (A) 0.3 %; HCT 29.8 % (39.6-50.0); Lymphocytes # (A) 1.55 X 10*3/uL (0.90-5.00); Lymphocytes % (A) 8.9 %; MCH 29.8 pg (27.0-32.0); MCHC 33.6 g/dL (32.0-37.0); MCV 88.7 fL (80.0-97.0); Mean Platelet Volume 10.9 fL (9.5-12.2); Monocytes # (A) 1.47 X 10*3/uL (0.20-1.00); Monocytes % (A) 8.4 %; Neutrophils # (A) 13.98 X 10*3/uL (1.80-7.70); Neutrophils % (A) 79.8 %; Platelet Count 100 X 10*3/uL (140-440); RBC 3.36 X 10*6/uL (4.40-5.60); RDW 14.7 % (11.5-14.5); Toxic Granulation 2+
[2021-03-08] MEDS: ACETAMINOPHEN TAB 325 MG TAB PO PRN (15:18)
--- NOTE | 2021-03-08 16:03 | PN ---
PROGRESS NOTE DATE OF SERVICE: 03/08/2021 REASON FOR FOLLOW UP: MRSA bacteremia secondary to tricuspid valve endocarditis. INTERVAL HISTORY: Patient is currently afebrile. Earlier did spike a fever 103 this morning. The patient complained of generalized body aches and pains and wants methadone dose to be up. No vomiting. No abdominal pain. No diarrhea or any other changes reported. PHYSICAL EXAMINATION: Blood pressure 120/65. Pulse 102. Temperature 98.7. He is 95% on 3 L nasal cannula. General description: The patient is a middle-aged male lying in bed in no distress. Respiratory system: Unlabored breathing. Clear to auscultation anteriorly. Heart S1, S2. Regular rate and rhythm. Abdomen: Soft, no tenderness. LABS: Hemoglobin is 10, and creatinine 0.6. Vancomycin trough 38.5. Blood cultures from still positive. DIAGNOSTIC IMPRESSION AND PLAN: Patient with MRSA bacteremia versus tricuspid valve endocarditis in this patient who does have a history of recurrent endocarditis and history of active IV drug use. The patient is covered with vancomycin, dose should be adjusted to keep the trough around 15. Daily blood cultures to document clearance of bacteremia and monitor clinical course closely. Prognosis remains to be guarded. MMODL / IJN: [id number] /
[2021-03-08] MEDS ORDERED: RX INFO: IV CONTRAST WAS GIVEN 1 EACH MISC MISCELLANE PRN (16:07)
--- NOTE | 2021-03-08 16:22 | P.PN ---
Subjective Progress Note Date: 03/08/21 (delayed charting seen at 1100) Principal diagnosis: hip pain Patient is a 30-year-old male with a history of MSSA infective endocarditis is completed antibiotics on 02/03 (he was to complete treatment 02/07), intravenous drug use, and tobacco abuse who presented to the emergency department with complaints of left hip and chest pain. In the ER he underwent an extensive evaluation. Initial vital signs showed temperature of 102.7 and a heart rate of 140. Laboratory analysis showed white blood cell count of 9.3, d-dimer 6.27, sodium 127, potassium 3.4, LDH 743, CRP 26.4, and pro-calcitonin 1.64. Influenza A, B, PCR, and Covid testing negative. Chest x-ray showed patchy lai ateral infiltrates. He was found have severe sepsis was felt to likely have an underlying pneumonia and was subsequently started on vancomycin and ceftriaxone. His blood cultures came back positive for MRSA. He underwent a CT of the chest which showed no large pulmonary embolism but did show bilateral multifocal organizing consolidation reflective of possible Covid versus septic emboli. He underwent an echocardiogram which showed possible vegetation in the tricuspid and mitral valve. Cardiology was consulted and recommended BRET which will be completed on 03/10. Cardiovascular thoracic was consulted. Patient seen and examined at bedside. He complains of left hip pain and shoulder pain. He recounts the details as listed above. He denies any chest pain, shortness of breath, nausea, or vomiting. General: Pale, ill-appearing, appears at stated age Derm: warm, dry Head: atraumatic, normocephalic, symmetric Eyes: EOMI, no lid lag, anicteric sclera Mouth: no lip lesion, mucus membranes moist Cardiovascular: S1S2 reg, no murmur, positive posterior tibial pulse bilateral, Lungs: Decreased breath sounds bilateral, no rhonchi, no rales , no accessory muscle use Abdominal: soft, nontender to palpation, no guarding, no appreciable organomegaly Ext: no gross muscle atrophy, no edema, no contractures Limited range of motion left hip, no erythema, no area of fluctuance Neuro: CN II-XI grossly intact, no focal neuro deficits Psych: Alert, oriented, appropriate affect Infectious endocarditis, bacteremia with severe sepsis, septic emboli - ID recs: Vancomycin - repeat blood cultures still positive, awaiting final results on initial culture - Cardiothorasic recs - IV fluids - recent tricuspid valve endocarditis at [facility]- cefolozin X 6 weeks was due to finnihs 02/10 and left AMA from [facility] 02/03 per patient Hx of IVDA - methadone to prevent withdrawal Left hip pain - hx of septic arthritis - methadone, IV tylenol - consult ortho - patient refusese MRI but okay with CT Scan Anemia and thrombocytopenia - check iron studieis - follow CBC tobacco abuse - cessation - nicotine replacement Hx Hep C - out patient follow-up Hyponatremia, resolved DVT prophylaxis: Heparin Discussed with: Patient, nursing Anticipated discharge: 1-[address]: [facility] A total of 35 minutes was spent on the care of this complex patient more than 50% of the time was spent in counseling and care coordination. Objective - Vital Signs Vital signs: Vital Signs Temp 98.3 F 03/08/21 14:55 Pulse 106 H 03/08/21 14:55 Resp 18 03/08/21 14:55 BP 125/78 03/08/21 14:55 Pulse Ox 99 03/08/21 14:55 Intake & Output 03/07/21 03/08/21 03/08/21 18:59 06:59 18:59 Output Total 200 Balance -200 Weight 68.039 kg Output: Urine 200 Other: Voiding Method Urinal Urinal # Voids 2 - Labs CBC & Chem 7: 03/08/21 07:46 03/08/21 07:46 Labs: Abnormal Lab Results - Last 24 Hours (Table) 03/08/21 03/08/21 Range/Units 07:46 07:46 WBC 17.50 H (4.50-10.00) X 10*3/uL RBC 3.36 L (4.40-5.60) X 10*6/uL Hgb 10.0 L (13.0-17.0) g/dL Hct 29.8 L (39.6-50.0) % RDW 14.7 H (11.5-14.5) % Plt Count 100 L (140-440) X 10*3/uL Plt Count Comment DECREASED A Immature Gran # 0.36 H (0.00-0.04) X 10*3/uL Neutrophils # 13.98 H (1.80-7.70) X 10*3/uL Monocytes # 1.47 H (0.20-1.00) X 10*3/uL Calcium 7.5 L (8.7-10.3) mg/dL Microbiology - Last 24 Hours (Table) 03/06/21 15:56 Blood Culture Gram Stain - Final Blood Blood Culture - Final Methicillin resist S. aureus 03/06/21 02:26 Blood Culture Gram Stain - Final Blood Blood Culture - Final Methicillin resist S. aureus 03/06/21 02:26 Blood Culture Gram Stain - Final Blood Blood Culture - Final Methicillin resist S. aureus Streptococcus species 03/07/21 15:39 Blood Culture Gram Stain - Preliminary Blood 03/07/21 15:39 Blood Culture - Final Blood
[2021-03-08] MEDS: KETOROLAC 15 MG/ML 1 ML VIAL IVP PRN ×2 (16:43→21:41)
--- NOTE | 2021-03-08 18:52 | CT ---
EXAMINATION TYPE: CT hip LT w con DATE OF EXAM: 03/08/2021 COMPARISON: None HISTORY: Left hip pain, history of septic arthritis. CT DLP: 448.4 mGycm Automated exposure control for dose reduction was used. CONTRAST: Performed with IV Contrast, patient injected with 100ml mL of Isovue 300. Images were obtained from the mid ileum to the mid shaft of the femur without contrast. There is severe narrowing of the hip joint space. There is deformity of the femoral head consistent w ith osteonecrosis. There is subchondral cystic changes and sclerosis on both sides of the hip joint. There is mild ballooning of the acetabulum. I see no acute fracture nor dislocation. There is 4 cm fl uid collection posterior to the acetabulum with relatively thick wall. There is irregular fluid colle ction also anterior to the hip joint with thick wall. This measures almost 6 cm in length. I see no free fluid in the pelvis. There is no evidence of pelvic mass. There is ankylotic change of the left sacroiliac joint. I see no pathologic enhancement. IMPRESSION: No acute fracture seen. Significant arthritic changes in the left hip as above consistent with chroni c septic arthritis. There is some collapse of the articular surface of the femoral head. Chronic avas cular necrosis is possible. Anterior and posterior fluid at the joint consistent with synovitis and l arge complex effusion.
[2021-03-09] MEDS: ACETAMINOPHEN TAB 500 MG TAB PO PRN ×3 (00:14→14:36)
[2021-03-09] MEDS ORDERED: VANCOMYCIN TROUGH DUE 1 EACH MISC MISCELLANE ONE (01:00)
[2021-03-09] MEDS: VANCOMYCIN 1,500 MG in SODIUM CHLORIDE 0.9% 250 ML IVPB SCH ×3 (01:52→17:26)
[2021-03-09] MEDS: SODIUM CHLORIDE 0.9% 1,000 ML IV SCH ×3 (01:53→15:32)
[2021-03-09] MEDS: KETOROLAC 15 MG/ML 1 ML VIAL IVP PRN ×4 (03:45→22:18)
[2021-03-09 06:47] LABS: ALT 14 U/L (4-49); AST 32 U/L (17-59); African American GFR (CKD) >90 (>60 ml/min/1.73 sqM); Albumin 2.1 g/dL (3.5-5.0); Albumin/Globulin Ratio 0.8; Alkaline Phosphatase 158 U/L (38-126); Anion Gap 5 mmol/L; Blood Urea Nitrogen 14 mg/dL (9-20); Calcium 7.9 mg/dL (8.4-10.2); Carbon Dioxide 25 mmol/L (22-30); Chloride 102 mmol/L (98-107); Globulin 2.6 g/dL; Glucose 120 mg/dL (74-99); Non-African American GFR(CKD) >90 (>60 ml/min/1.73 sqM); Potassium 3.7 mmol/L (3.5-5.1); Sodium 132 mmol/L (137-145); Total Bilirubin 0.3 mg/dL (0.2-1.3); Total Protein 4.7 g/dL (6.3-8.2)
[2021-03-09 06:57] LABS: HCT 31.7 % (39.0-53.0); MCH 28.7 pg (25.0-35.0); MCHC 31.5 g/dL (31.0-37.0); Mean Platelet Volume 8.4; RBC 3.48 m/uL (4.30-5.90); RDW 14.9 % (11.5-15.5); WBC 17.8 k/uL (3.8-10.6)
[2021-03-09 07:27] LABS: C Reactive Protein 24.1 mg/dL (<1.0); Platelet Count 126 k/uL (150-450)
[2021-03-09] MEDS: ENOXAPARIN 40 MG/0.4 ML SYRINGE SQ SCH (08:28)
[2021-03-09] MEDS: MAGNESIUM OXIDE 400 MG TAB PO SCH ×2 (08:29→20:03)
[2021-03-09] MEDS: cloNIDine HCL 0.1 MG TAB PO SCH ×3 (08:29→20:01)
[2021-03-09] MEDS: METHADONE 10 MG TAB PO SCH ×2 (08:29→20:03)
--- NOTE | 2021-03-09 10:54 | P.CNOR ---
History of Present Illness - HPI Consult date: 03/09/21 History of present illness: This is a 30-year-old male who is admitted for sepsis. Patient has a history of MSSA infective endocarditis. Patient was receiving IV antibiotic treatment at an extended care facility, but left AMA. Patient's current blood cultures are positive for MRSA with a recent echocardiogram showing possible vegetation in the tricuspid and mitral valves. Orthopedics is consulted due to chronic left hip pain. Patient states that he has had issues with his left hip since he was 12 years old. Patient states that in December he developed pain in the left hip after IV drug use. Patient states that he was admitted to [facility] at that time for infective endocarditis and underwent multiple hip aspirations which he states were negative for infection. Patient states that the pain in his left hip is currently well controlled and he is able to ambulate. Patient is scheduled to undergo BRET on 03/10/2021. Review of Systems See HPI. Past Medical History Additional Past Medical History / Comment(s): Infected cardiac valve per pt a couple months ago-states he never followed up, underwent IV antibiotics at that time but did not complete the course of antibiotics per the patient. History of L hip osteomylitis/hip joint surgically removed. History of Any Multi-Drug Resistant Organisms: None Reported Past Surgical History: Orthopedic Surgery Additional Past Surgical History / Comment(s): 2 hip surgeries and eventual removal of hip joint. Past Anesthesia/Blood Transfusion Reactions: No Reported Reaction Past Psychological History: No Psychological Hx Reported Smoking Status: Current every day smoker Past Alcohol Use History: None Reported Past Drug Use History: Heroin, Methamphetamine - Past Family History Father Additional Family Medical History / Comment(s): Father lives in [place] and had an injury and is disabled. Mother Family Medical History: Vascular Disorder Additional Family Medical History / Comment(s): Mother of a brain aneurysm. Sister(s) Family Medical History: No Reported History Additional Family Medical History / Comment(s): pt lives with his sister. Medications and Allergies Home Medications Medication Instructions Recorded Confirmed Type No Known Home Medications 03/06/21 03/06/21 History Allergies Allergy/AdvReac Type Severity Reaction Status Date / Time tramadol [From Ultram] AdvReac Mild Unknown Verified 03/06/21 06:27 Physical Examination On exam patient is alert and oriented 3. Patient is sitting up in bed in no acute distress. Patient has good active range of motion of the left hip without pain. Sensation is intact. Calf is soft and nontender to palpation. Neurovascular status and circulatory status are intact. Results CT report of the left hip dated 03/08/2021 shows: No acute fracture seen. Significant arthritic changes in the left hip as above consistent with chronic septic arthritis. There is some collapse of the articular surface of the femoral head. Chronic avascular necrosis as possible. Anterior and posterior fluid at the joint consistent with synovitis and large complex effusion. - Labs Labs: Abnormal Lab Results - Last 24 Hours (Table) 03/08/21 03/08/21 03/09/21 Range/Units 07:46 07:46 05:41 WBC 17.50 H 17.8 H (4.50-10.00) X 10*3/uL RBC 3.36 L 3.48 L (4.40-5.60) X 10*6/uL Hgb 10.0 L 10.0 L D (13.0-17.0) g/dL Hct 29.8 L 31.7 L (39.6-50.0) % RDW 14.7 H (11.5-14.5) % Plt Count 100 L 126 L D (140-440) X 10*3/uL Plt Count Comment DECREASED A Immature Gran # 0.36 H (0.00-0.04) X 10*3/uL Neutrophils # 13.98 H (1.80-7.70) X 10*3/uL Monocytes # 1.47 H (0.20-1.00) X 10*3/uL Sodium (137-145) mmol/L Creatinine (0.66-1.25) mg/dL Glucose (74-99) mg/dL Calcium 7.5 L (8.7-10.3) mg/dL Alkaline Phosphatase (38-126) U/L C-Reactive Protein (<1.0) mg/dL Total Protein (6.3-8.2) g/dL Albumin (3.5-5.0) g/dL 03/09/21 Range/Units 05:41 WBC (4.50-10.00) X 10*3/uL RBC (4.40-5.60) X 10*6/uL Hgb (13.0-17.0) g/dL Hct (39.6-50.0) % RDW (11.5-14.5) % Plt Count (140-440) X 10*3/uL Plt Count Comment Immature Gran # (0.00-0.04) X 10*3/uL Neutrophils # (1.80-7.70) X 10*3/uL Monocytes # (0.20-1.00) X 10*3/uL Sodium 132 L (137-145) mmol/L Creatinine 0.61 L (0.66-1.25) mg/dL Glucose 120 H (74-99) mg/dL Calcium 7.9 L (8.7-10.3) mg/dL Alkaline Phosphatase 158 H (38-126) U/L C-Reactive Protein 24.1 H (<1.0) mg/dL Total Protein 4.7 L (6.3-8.2) g/dL Albumin 2.1 L (3.5-5.0) g/dL Microbiology - Last 24 Hours (Table) 03/07/21 15:39 Blood Culture Gram Stain - Preliminary Blood Blood Culture - Preliminary Presumptive MRSA 03/08/21 07:46 Blood Culture Gram Stain - Preliminary Blood 03/08/21 07:46 Blood Culture - Final Blood 03/06/21 15:56 Blood Culture Gram Stain - Final Blood Blood Culture - Final Methicillin resist S. aureus 03/06/21 02:26 Blood Culture Gram Stain - Final Blood Blood Culture - Final Methicillin resist S. aureus 03/06/21 02:26 Blood Culture Gram Stain - Final Blood Blood Culture - Final Methicillin resist S. aureus Streptococcus species H & H 03/06/21 03/07/21 03/08/21 Range/Units 02:26 08:00 07:46 Hgb 12.2 L 10.1 L 10.0 L (13.0-17.5) gm/dL Hct 37.3 L 30.8 L 29.8 L (39.0-53.0) % 03/09/21 Range/Units 05:41 Hgb 10.0 L D (13.0-17.5) gm/dL Hct 31.7 L (39.0-53.0) % Result Diagrams: 03/09/21 05:41 03/09/21 05:41 Assessment and Plan Assessment: MRSA bacteremia Chronic septic arthritis vs avascular necrosis left hip. (1) Bacteremia Current Visit: Yes Status: Acute Code(s): R78.81 - BACTEREMIA SNOMED Code(s): 3685518 (2) Fever Current Visit: Yes Status: Acute Code(s): R50.9 - FEVER, UNSPECIFIED SN OMED Code(s): 767147817 (3) Sepsis Current Visit: Yes Status: Acute Code(s): A41.9 - SEPSIS, UNSPECIFIED ORGANISM SNOMED Code(s): 65323455 Plan: 1. Patient is awaiting BRET for evaluation of infective endocarditis. Patient's blood cultures are positive for MRSA. 2. Patient's left hip pain is currently well-controlled and he is ambulatory. No surgical intervention planned for the left hip. Will continue to follow peripherally.
--- NOTE | 2021-03-09 14:46 | P.PN ---
Subjective Progress Note Date: 03/09/21 (delayed charting seen at 0800) Principal diagnosis: hip pain Patient is a 30-year-old male with a history of MSSA infective endocarditis is completed antibiotics on 02/03 (he was to complete treatment 02/07), intravenous drug use, and tobacco abuse who presented to the emergency department with complaints of left hip and chest pain. In the ER he underwent an extensive evaluation. Initial vital signs showed temperature of 102.7 and a heart rate of 140. Laboratory analysis showed white blood cell count of 9.3, d-dimer 6.27, sodium 127, potassium 3.4, LDH 743, CRP 26.4, and pro-calcitonin 1.64. Influenza A, B, PCR, and Covid testing negative. Chest x-ray showed patchy lai ateral infiltrates. He was found have severe sepsis was felt to likely have an underlying pneumonia and was subsequently started on vancomycin and ceftriaxone. His blood cultures came back positive for MRSA. He underwent a CT of the chest which showed no large pulmonary embolism but did show bilateral multifocal organizing consolidation reflective of possible Covid versus septic emboli. He underwent an echocardiogram which showed possible vegetation in the tricuspid and mitral valve. Cardiology was consulted and recommended BRET which will be completed on 03/10. Cardiovascular thoracic was consulted, no indication fo valve replacement at this time. 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 Patient seen and examined at bedside. He is sleeping on an cerumen and continues to complain of pain. Wants to be left alone. He had 2 episodes of looser stool yesterday. Denies any nausea or vomiting. Denies any chest pain or shortness of breath. General: Pale, ill-appearing, appears at stated age Derm: warm, dry Head: atraumatic, normocephalic, symmetric Eyes: EOMI, no lid lag, anicteric sclera Mouth: no lip lesion, mucus membranes moist Cardiovascular: S1S2 reg, no murmur, positive posterior tibial pulse bilateral, Lungs: Decreased breath sounds bilateral, no rhonchi, no rales , no accessory muscle use Abdominal: soft, nontender to palpation, no guarding, no appreciable organomegaly Ext: no gross muscle atrophy, no edema, no contractures Neuro: CN II-XI grossly intact, no focal neuro deficits Psych: Alert, oriented, appropriate affect Infectious MRSA endocarditis, bacteremia with sepsis, septic emboli - ID recs: Vancomycin - repeat blood cultures continued to be positive - Cardiothorasic recs - IV fluids - recent tricuspid valve endocarditis at [facility]- cefolozin X 6 weeks was due to finnihs 02/10 and left AMA from [facility] 02/03 per patient 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 Objective - Vital Signs Vital signs: Vital Signs Temp 99.1 F 03/09/21 07:51 Pulse 97 03/09/21 07:51 Resp 16 03/09/21 07:51 BP 108/63 03/09/21 07:51 Pulse Ox 93 L 03/09/21 07:51 Intake & Output 03/08/21 03/09/21 03/09/21 18:59 06:59 18:59 Intake Total 800 Balance 800 Intake: Oral 800 Other: Voiding Method Urinal Urinal # Voids 1 - Labs CBC & Chem 7: 03/09/21 05:41 03/09/21 05:41 Labs: Abnormal Lab Results - Last 24 Hours (Table) 03/09/21 03/09/21 Range/Units 05:41 05:41 WBC 17.8 H (3.8-10.6) k/uL RBC 3.48 L (4.30-5.90) m/uL Hgb 10.0 L D (13.0-17.5) gm/dL Hct 31.7 L (39.0-53.0) % Plt Count 126 L D (150-450) k/uL Sodium 132 L (137-145) mmol/L Creatinine 0.61 L (0.66-1.25) mg/dL Glucose 120 H (74-99) mg/dL Calcium 7.9 L (8.4-10.2) mg/dL Alkaline Phosphatase 158 H (38-126) U/L C-Reactive Protein 24.1 H (<1.0) mg/dL Total Protein 4.7 L (6.3-8.2) g/dL Albumin 2.1 L (3.5-5.0) g/dL Microbiology - Last 24 Hours (Table) 03/08/21 07:46 Blood Culture Gram Stain - Preliminary Blood 03/07/21 15:39 Blood Culture Gram Stain - Preliminary Blood Blood Culture - Preliminary Presumptive MRSA 03/08/21 07:46 Blood Culture - Final Blood 03/06/21 15:56 Blood Culture Gram Stain - Final Blood Blood Culture - Final Methicillin resist S. aureus
[2021-03-10] MEDS: ACETAMINOPHEN TAB 500 MG TAB PO PRN ×3 (00:48→22:31)
[2021-03-10] MEDS: VANCOMYCIN 1,500 MG in SODIUM CHLORIDE 0.9% 250 ML IVPB SCH ×3 (01:55→18:20)
[2021-03-10] MEDS ORDERED: HYDROmorphone 0.2 MG/1 ML SYRINGE IVP STA (02:18)
[2021-03-10] MEDS: SODIUM CHLORIDE 0.9% 1,000 ML IV SCH ×3 (03:33→18:21)
[2021-03-10] MEDS: KETOROLAC 15 MG/ML 1 ML VIAL IVP PRN ×4 (03:43→22:31)
--- NOTE | 2021-03-10 05:09 | PN ---
PROGRESS NOTE DATE OF SERVICE: 03/09/2021 REASON FOR FOLLOWUP: MRSA bacteremia secondary to tricuspid valve endocarditis plus minus septic arthritis of the hip. INTERVAL HISTORY: Patient is currently afebrile. The patient is still complaining of generalized body aches and wants his Methadone dose to be adjusted up. Denies having any worsening shortness of breath. No nausea, no vomiting. No abdominal pain. No diarrhea. PHYSICAL EXAMINATION: Blood pressure 130/61, pulse of 100, temperature 98.9. He is 96% on room air. General description is a middle aged male lying in bed in no distress. RESPIRATORY SYSTEM: Unlabored breathing. Clear to auscultation anteriorly. Heart S1, S2. Regular rate. ABDOMEN: Soft, no tenderness. LABS: Hemoglobin is 10.3, white count 17.8, creatinine 0.61. Blood cultures coming back positive. DIAGNOSTIC IMPRESSION AND PLAN: Patient with MRSA bacteremia secondary to tricuspid valve endocarditis and concern for possible left hip septic arthritis. The patient has been evaluated by Ortho, will benefit from aspirate of the left hip and if positive, may benefit from possible washout in order to control this infection. Continue with vancomycin for now. Plan of care discussed with the admitting physician. MMODL / IJN: [id number] /
[2021-03-10 07:29] LABS: African American GFR (CKD) >90 (>60 ml/min/1.73 sqM); Anion Gap 4 mmol/L; Blood Urea Nitrogen 13 mg/dL (9-20); Calcium 7.8 mg/dL (8.4-10.2); Carbon Dioxide 26 mmol/L (22-30); Chloride 104 mmol/L (98-107); Glucose 91 mg/dL (74-99); Non-African American GFR(CKD) >90 (>60 ml/min/1.73 sqM); Potassium 4.3 mmol/L (3.5-5.1); Sodium 134 mmol/L (137-145)
[2021-03-10 07:41] LABS: C Reactive Protein 24.4 mg/dL (<1.0)
[2021-03-10] MEDS: ENOXAPARIN 40 MG/0.4 ML SYRINGE SQ SCH (09:17)
[2021-03-10] MEDS: METHADONE 10 MG TAB PO SCH ×2 (09:27→20:43)
[2021-03-10] MEDS: cloNIDine HCL 0.1 MG TAB PO SCH ×3 (09:27→20:33)
[2021-03-10] MEDS: MAGNESIUM OXIDE 400 MG TAB PO SCH ×2 (09:27→20:43)
[2021-03-10 10:05] LABS: HCT 32.2 % (39.6-50.0); HGB 10.2 g/dL (13.0-17.0); MCH 29.1 pg (27.0-32.0); MCHC 31.7 g/dL (32.0-37.0); MCV 91.7 fL (80.0-97.0); Mean Platelet Volume 10.3 fL (9.5-12.2); Platelet Count 178 X 10*3/uL (140-440); RBC 3.51 X 10*6/uL (4.40-5.60); RDW 14.7 % (11.5-14.5); WBC 25.57 X 10*3/uL (4.50-10.00)
[2021-03-10 11:25] LABS: % Iron Saturation 3.21 (15.00-50.00)
[2021-03-10 11:26] LABS: Ferritin 408.5 ng/mL (22.0-322.0)
[2021-03-10] MEDS ORDERED: METHADONE 5 MG TAB PO STA (15:41)
--- NOTE | 2021-03-10 16:47 | P.PN ---
Subjective Progress Note Date: 03/10/21 This is a 30-year-old male who is admitted for MRSA bacteremia secondary to tricuspid valve endocarditis. Orthopedics is following for possible septic arthritis of the left hip. Patient is seen and evaluated at bedside today. Patient states that he is not having any pain in the left hip today. Patient denies any new complaints today. Objective - Vital Signs Vital signs: Vital Signs Temp 98.5 F 03/10/21 14:00 Pulse 103 H 03/10/21 14:00 Resp 16 03/10/21 14:00 BP 117/71 03/10/21 14:00 Pulse Ox 96 03/10/21 14:00 Intake & Output 03/09/21 03/10/21 03/10/21 18:59 06:59 18:59 Intake Total 800 Output Total 700 200 Balance 800 -700 -200 Intake: Oral 800 Output: Urine 700 200 Other: Voiding Method Urinal Urinal # Voids 3 2 - Exam On exam patient is resting comfortably in bed in no acute distress. Patient is alert and oriented 3. Patient has good active range of motion of the left hip without pain or difficulty. Sensation intact. Neurovascular status and circulatory status are intact. - Labs CBC & Chem 7: 03/10/21 06:46 03/10/21 06:46 Labs: Abnormal Lab Results - Last 24 Hours (Table) 03/10/21 03/10/21 03/10/21 Range/Units 06:46 06:46 06:46 WBC 25.57 H (4.50-10.00) X 10*3/uL RBC 3.51 L (4.40-5.60) X 10*6/uL Hgb 10.2 L (13.0-17.0) g/dL Hct 32.2 L (39.6-50.0) % MCHC 31.7 L (32.0-37.0) g/dL RDW 14.7 H (11.5-14.5) % Sodium 134 L (137-145) mmol/L Calcium 7.8 L (8.4-10.2) mg/dL Iron 6 L (65-175) ug/dL TIBC 187 L (228-460) ug/dL % Saturation 3.21 L (15.00-50.00) Ferritin 408.5 H (22.0-322.0) ng/mL C-Reactive Protein 24.4 H (<1.0) mg/dL Microbiology - Last 24 Hours (Table) 03/08/21 07:46 Blood Culture Gram Stain - Final Blood Blood Culture - Final Methicillin resist S. aureus 03/07/21 15:39 Blood Culture Gram Stain - Final Blood Blood Culture - Final Methicillin resist S. aureus Assessment and Plan Assessment: MRSA bacteremia Chronic septic arthritis vs avascular necrosis left hip. (1) Bacteremia Current Visit: Yes Status: Acute Code(s): R78.81 - BACTEREMIA SNOMED Code(s): 0136462 (2) Fever Current Visit: Yes Status: Acute Code(s): R50.9 - FEVER, UNSPECIFIED SNOMED Code(s): 142813004 (3) Sepsis Current Visit: Yes Status: Acute Code(s): A41.9 - SEPSIS, UNSPECIFIED ORGANISM SNOMED Code(s): 06570189 Plan: 1. Patient's blood cultures are positive for MRSA. 2. Patient denies any pain in the left hip today. X-rays of the left hip are pending. 3. No surgical intervention planned for the left hip. Will continue to follow.
--- NOTE | 2021-03-10 17:29 | P.PN ---
Subjective Progress Note Date: 03/10/21 (delayed charting seen at 1030) Principal diagnosis: hip pain Patient is a 30-year-old male with a history of MSSA infective endocarditis is completed antibiotics on 02/03 (he was to complete treatment 02/07), intravenous drug use, and tobacco abuse who presented to the emergency department with complaints of left hip and chest pain. In the ER he underwent an extensive evaluation. Initial vital signs showed temperature of 102.7 and a heart rate of 140. Laboratory analysis showed white blood cell count of 9.3, d-dimer 6.27, sodium 127, potassium 3.4, LDH 743, CRP 26.4, and pro-calcitonin 1.64. Influenza A, B, PCR, and Covid testing negative. Chest x-ray showed patchy lai ateral infiltrates. He was found have severe sepsis was felt to likely have an underlying pneumonia and was subsequently started on vancomycin and ceftriaxone. His blood cultures came back positive for MRSA. He underwent a CT of the chest which showed no large pulmonary embolism but did show bilateral multifocal organizing consolidation reflective of possible Covid versus septic emboli. He underwent an echocardiogram which showed possible vegetation in the tricuspid and mitral valve. Cardiology was consulted and recommended BRET which will be completed on 03/10. Cardiovascular thoracic was consulted, no indication fo valve replacement at this time. 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 Patient seen and examined at bedside. He is sleeping on arousal complains of pain everywhere, crying and wants to eat (was NPO for possible BRET), Often refuses care as it is not to his liking. General: Pale, ill-appearing, appears at stated age Derm: warm, dry Head: atraumatic, normocephalic, symmetric Eyes: EOMI, no lid lag, anicteric sclera Mouth: no lip lesion, mucus membranes moist Cardiovascular: S1S2 reg, no murmur, positive posterior tibial pulse bilateral, Lungs: Decreased breath sounds bilateral, no rhonchi, no rales , no accessory muscle use Abdominal: soft, nontender to palpation, no guarding, no appreciable organomegaly Ext: no gross muscle atrophy, no edema, no contractures Neuro: CN II-XI grossly intact, no focal neuro deficits Psych: Alert, oriented, appropriate affect Infectious MRSA endocarditis, bacteremia with sepsis, septic emboli - ID recs: Vancomycin - repeat blood cultures continued to be positive - Cardiothorasic recs - IV fluids - recent tricuspid valve endocarditis at [facility]- cefolozin X 6 weeks was due to finnihs 02/10 and left AMA from correction 02/03 per patient 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 Hx of IVDA - methadone to prevent withdrawal Anemia and thrombocytopenia - check iron studieis - follow CBC tobacco abuse - cessation - nicotine replacement Hx Hep C - out patient follow-up Hyponatremia, resolved DVT prophylaxis: Heparin Discussed with: Patient, nursing Anticipated discharge: 1-[address]: SNF A total of 35 minutes was spent on the care of this complex patient more than 50% of the time was spent in counseling and care coordination. Objective - Vital Signs Vital signs: Vital Signs Temp 98.5 F 03/10/21 14:00 Pulse 103 H 03/10/21 14:00 Resp 16 03/10/21 14:00 BP 117/71 03/10/21 14:00 Pulse Ox 96 03/10/21 14:00 Intake & Output 03/09/21 03/10/21 03/10/21 18:59 06:59 18:59 Intake Total 800 Output Total 700 200 Balance 800 -700 -200 Intake: Oral 800 Output: Urine 700 200 Other: Voiding Method Urinal Urinal # Voids 3 2 - Labs CBC & Chem 7: 03/10/21 06:46 03/10/21 06:46 Labs: Abnormal Lab Results - Last 24 Hours (Table) 03/10/21 03/10/21 03/10/21 Range/Units 06:46 06:46 06:46 WBC 25.57 H (4.50-10.00) X 10*3/uL RBC 3.51 L (4.40-5.60) X 10*6/uL Hgb 10.2 L (13.0-17.0) g/dL Hct 32.2 L (39.6-50.0) % MCHC 31.7 L (32.0-37.0) g/dL RDW 14.7 H (11.5-14.5) % Sodium 134 L (137-145) mmol/L Calcium 7.8 L (8.4-10.2) mg/dL Iron 6 L (65-175) ug/dL TIBC 187 L (228-460) ug/dL % Saturation 3.21 L (15.00-50.00) Ferritin 408.5 H (22.0-322.0) ng/mL C-Reactive Protein 24.4 H (<1.0) mg/dL Microbiology - Last 24 Hours (Table) 03/08/21 07:46 Blood Culture Gram Stain - Final Blood Blood Culture - Final Methicillin resist S. aureus 03/07/21 15:39 Blood Culture Gram Stain - Final Blood Blood Culture - Final Methicillin resist S. aureus
--- NOTE | 2021-03-10 21:13 | XR ---
EXAMINATION TYPE: XR Hip LT and AP Pelvis DATE OF EXAM: 03/10/2021 CLINICAL HISTORY: pain TECHNIQUE: AP and frogleg views of the left hip are obtained. COMPARISON: None. FINDINGS: There is a remote fracture involving the left femoral neck with the erosive change of the f emoral head possibly is underlying avascular necrosis and remodeling of the acetabulum. The right hip is unremarkable. IMPRESSION: 1. As above
[2021-03-10] MEDS ORDERED: IBUPROFEN 600 MG TAB PO STA (23:36)
[2021-03-10] MEDS: PANTOPRAZOLE 40 MG TABLET PO SCH (23:49)
[2021-03-11] MEDS: VANCOMYCIN 1,500 MG in SODIUM CHLORIDE 0.9% 250 ML IVPB SCH ×3 (02:47→17:34)
[2021-03-11] MEDS: SODIUM CHLORIDE 0.9% 1,000 ML IV SCH ×3 (02:49→19:58)
[2021-03-11] MEDS: KETOROLAC 15 MG/ML 1 ML VIAL IVP PRN ×3 (04:53→22:13)
[2021-03-11] MEDS: cloNIDine HCL 0.1 MG TAB PO SCH ×3 (07:44→22:13)
[2021-03-11] MEDS: ACETAMINOPHEN TAB 500 MG TAB PO PRN (07:48)
[2021-03-11] MEDS: METHADONE 10 MG TAB PO SCH (07:48)
[2021-03-11] MEDS: MAGNESIUM OXIDE 400 MG TAB PO SCH ×2 (07:48→22:13)
[2021-03-11] MEDS: PANTOPRAZOLE 40 MG TABLET PO SCH (07:50)
[2021-03-11] MEDS: ENOXAPARIN 40 MG/0.4 ML SYRINGE SQ SCH (07:51)
[2021-03-11 10:05] LABS: INR 1.5 (<1.2); Prothrombin Time 15.3 sec (9.0-12.0)
[2021-03-11] MEDS ORDERED: LORazepam 2 MG/ML INJ IV STA (10:49)
[2021-03-11 11:31] LABS: HCT 30.5 % (39.0-53.0); HGB 10.1 gm/dL (13.0-17.5); Mean Platelet Volume 7.7; Platelet Count 209 k/uL (150-450); RBC 3.35 m/uL (4.30-5.90); RDW 14.9 % (11.5-15.5); WBC 23.8 k/uL (3.8-10.6)
[2021-03-11] MEDS: METHADONE 5 MG TAB PO SCH ×2 (11:36→17:34)
--- NOTE | 2021-03-11 12:38 | PN ---
PROGRESS NOTE DATE OF SERVICE: 03/11/2021 REASON FOR FOLLOWUP: MRSA bacteremia secondary to tricuspid valve endocarditis and a question of septic arthritis. INTERVAL HISTORY: The patient is afebrile this morning, however, he did spike a fever of 102.1 degrees Fahrenheit last night. The patient has been complaining of inadequacy of his pain medication and wanted his pain medication to be adjusted. The patient denies having any worsening chest pain, shortness of breath or cough. No abdominal pain. No diarrhea or any worsening pain to the hip area. PHYSICAL EXAMINATION: Blood pressure 100/59 with a pulse of 94, temperature 98.3. He is 96% on room air. General description is a middle-aged male lying in bed in no distress. RESPIRATORY SYSTEM: Unlabored breathing, clear to auscultation anteriorly. HEART: S1, S2. Regular rate and rhythm. ABDOMEN: Soft, no tenderness. EXTREMITIES: No edema of feet. LABS: INR is 1.5. Blood culture from yesterday still positive. Patient did have x-rays of the hip which showed left femoral neck with erosive changes of femoral head, possibly underlying avascular necrosis or remodeling of the acetabulum. DIAGNOSTIC IMPRESSION AND PLAN: Patient with MRSA bacteremia secondary to tricuspid valve endocarditis. Patient seemed to have persistent bacteremia more likely from the infection and a question of possible left hip septic arthritis though ortho has seen the patient, recommending no further workup at this point. Daily blood cultures to document clearance of bacteremia. Vancomycin to be continued. Prognosis remains to be guarded. MMODL / IJN: [id number] /
--- NOTE | 2021-03-11 14:43 | P.PN ---
Subjective Progress Note Date: 03/11/21 This is a 30-year-old male who is admitted for MRSA bacteremia secondary to tricuspid valve endocarditis. Orthopedics is following for possible septic arthritis of the left hip. Patient is seen and evaluated at bedside today. Patient denies any pain in the left hip today. Patient denies any new complai nts today. Objective - Vital Signs Vital signs: Vital Signs Temp 98.3 F 03/11/21 08:00 Pulse 94 03/11/21 08:00 Resp 21 03/11/21 08:00 BP 100/59 03/11/21 08:00 Pulse Ox 96 03/11/21 08:00 Intake & Output 03/10/21 03/11/21 03/11/21 18:59 06:59 18:59 Output Total 600 Balance -600 Output: Urine 600 Other: Voiding Method Urinal Urinal # Voids 1 - Exam On exam patient is resting comfortably in bed in no acute distress. Patient is alert and oriented 3. Patient has good active range of motion of the left hip without pain or difficulty. Sensation intact. Neurovascular status and circulatory status are intact. - Labs CBC & Chem 7: 03/11/21 08:41 03/10/21 06:46 Labs: Abnormal Lab Results - Last 24 Hours (Table) 03/11/21 03/11/21 Range/Units 08:41 08:41 WBC 23.8 H (3.8-10.6) k/uL RBC 3.35 L (4.30-5.90) m/uL Hgb 10.1 L (13.0-17.5) gm/dL Hct 30.5 L (39.0-53.0) % PT 15.3 H (9.0-12.0) sec INR 1.5 H (<1.2) Microbiology - Last 24 Hours (Table) 03/10/21 06:46 Blood Culture Gram Stain - Preliminary Blood Blood Culture - Preliminary Presumptive MRSA 03/10/21 06:46 Blood Culture Gram Stain - Preliminary Blood Blood Culture - Preliminary Presumptive MRSA 03/10/21 06:46 Blood Culture - Final Blood 03/10/21 06:50 Blood Culture - Final Blood Assessment and Plan Assessment: MRSA bacteremia Chronic septic arthritis vs osteomyelitis left hip. (1) Bacteremia Current Visit: Yes Status: Acute Code(s): R78.81 - BACTEREMIA SNOMED Code(s): 3333409 (2) Fever Current Visit: Yes Status: Acute Code(s): R50.9 - FEVER, UNSPECIFIED SNOMED Code(s): 134742457 (3) Sepsis Current Visit: Yes Status: Acute Code(s): A41.9 - SEPSIS, UNSPECIFIED ORGANISM SNOMED Code(s): 28517068 Plan: 1. Patient's blood cultures conitnue to be positive for MRSA. 2. X-rays of the left hip are reviewed and reveal significant destruction of the femoral head likely secondary to osteomyelitis versus chronic septic arthritis. 3. If surgical intervention is needed for the left hip patient would require femoral head resection and multiple surgeries to follow and should be transferred to a tertiary care facility.
--- NOTE | 2021-03-11 15:51 | US ---
Ultrasound EXAMINATION TYPE: US guided asp/inj major joint DATE OF EXAM: 03/11/2021 HISTORY: Left hip joint effusion and chronic septic arthritis FINDINGS: The procedure was discussed with the patient. The risks, complications, benefits, and alternatives we re discussed and any questions were answered. Informed consent was obtained. The patient was placed s upine on the ultrasound table and prepped and draped in the usual sterile fashion. All elements of maximal barrier technique were utilized. The skin overlying a suitable path to the le ft hip fluid collection was localized with ultrasound and the overlying skin prepped and draped. Ultr asound was utilized using sterile technique. 1% lidocaine was used for local anesthesia. Access was gained under direct ultrasound guidance to the fluid with a 7 cm 5 [place] one-step centesis catheter . 15 mL of purulent fluid returned and sent for laboratory testing. Catheter was removed and sterile bandage was applied. No immediate complication and the patient remained in stable condition. Patient discharged from radiology department back to floor. IMPRESSION: Status post ultrasound-guided aspiration of left hip fluid collection. 15 mL of purulent fluid remove d and sent for laboratory testing.
--- NOTE | 2021-03-11 19:00 | P.PN ---
Subjective Progress Note Date: 03/11/21 (delayed charting seen at 0945) Principal diagnosis: hip pain Patient is a 30-year-old male with a history of MSSA infective endocarditis is completed antibiotics on 02/03 (he was to complete treatment 02/07), intravenous drug use, and tobacco abuse who presented to the emergency department with complaints of left hip and chest pain. In the ER he underwent an extensive evaluation. Initial vital signs showed temperature of 102.7 and a heart rate of 140. Laboratory analysis showed white blood cell count of 9.3, d-dimer 6.27, sodium 127, potassium 3.4, LDH 743, CRP 26.4, and pro-calcitonin 1.64. Influenza A, B, PCR, and Covid testing negative. Chest x-ray showed patchy lai ateral infiltrates. He was found have severe sepsis was felt to likely have an underlying pneumonia and was subsequently started on vancomycin and ceftriaxone. His blood cultures came back positive for MRSA. He underwent a CT of the chest which showed no large pulmonary embolism but did show bilateral multifocal organizing consolidation reflective of possible Covid versus septic emboli. He underwent an echocardiogram which showed possible vegetation in the tricuspid and mitral valve. Cardiology was consulted and recommended BRET which will be completed on 03/10. Cardiovascular thoracic was consulted, no indication for valve replacement at this time. 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 He underwent aspiration of his left hip with 15 mL of purulent fluid collected. Laboratory analysis pending. Patient seen and examined at bedside. He complains of pain all over. Asking for more pain meds. Denies any nausea, vomiting, or diarrhea. General: Pale, ill-appearing, appears at stated age Derm: warm, dry Head: atraumatic, normocephalic, symmetric Eyes: EOMI, no lid lag, anicteric sclera Mouth: no lip lesion, mucus membranes moist Cardiovascular: S1S2 tachycardic, no murmur, positive posterior tibial pulse lai ateral, Lungs: Decreased breath sounds bilateral, no rhonchi, no rales , no accessory muscle use Abdominal: soft, nontender to palpation, no guarding, no appreciable organomegaly Ext: no gross muscle atrophy, no edema, no contractures Neuro: CN II-XI grossly intact, no focal neuro deficits Psych: Alert, oriented, appropriate affect Infectious MRSA endocarditis, bacteremia with sepsis, septic emboli - ID recs: Vancomycin - repeat blood cultures continued to be positive - Cardiothorasic recs: No class I indication for valve replacement at this time - IV fluids - recent tricuspid valve endocarditis at [facility]- cefolozin X 6 weeks was due to finnihs 02/10 and left AMA from half-way 02/03 per patient 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 Hx of IVDA, withdrawal, chronic pain -Methadone transition from 10 twice a day to 7.5 4 times a day -Continue with Tylenol, Toradol, Catapres Anemia and thrombocytopenia - Iron studies with iron deficiency -Start oral iron - follow CBC tobacco abuse - cessation - nicotine replacement Hx Hep C - out patient follow-up Hyponatremia, resolved DVT prophylaxis: Heparin Discussed with: Patient, nursing Anticipated discharge: 1-[address]: Suspect patient will need transfer to tertiary center once lab urinalysis of the hip aspirate is available A total of 35 minutes was spent on the care of this complex patient more than 50% of the time was spent in counseling and care coordination. Objective - Vital Signs Vital signs: Vital Signs Temp 98.1 F 03/11/21 13:44 Pulse 114 H 03/11/21 14:55 Resp 18 03/11/21 14:55 BP 119/78 03/11/21 14:55 Pulse Ox 97 03/11/21 14:55 Intake & Output 03/10/21 03/11/21 03/11/21 18:59 06:59 18:59 Output Total 600 Balance -600 Output: Urine 600 Other: Voiding Method Urinal Urinal # Voids 1 2 - Labs CBC & Chem 7: 03/11/21 08:41 03/10/21 06:46 Labs: Abnormal Lab Results - Last 24 Hours (Table) 03/11/21 03/11/21 Range/Units 08:41 08:41 WBC 23.8 H (3.8-10.6) k/uL RBC 3.35 L (4.30-5.90) m/uL Hgb 10.1 L (13.0-17.5) gm/dL Hct 30.5 L (39.0-53.0) % PT 15.3 H (9.0-12.0) sec INR 1.5 H (<1.2) Microbiology - Last 24 Hours (Table) 03/10/21 06:46 Blood Culture Gram Stain - Preliminary Blood Blood Culture - Preliminary Presumptive MRSA 03/10/21 06:46 Blood Culture Gram Stain - Preliminary Blood Blood Culture - Preliminary Presumptive MRSA 03/10/21 06:46 Blood Culture - Final Blood 03/10/21 06:50 Blood Culture - Final Blood
[2021-03-12] MEDS: SODIUM CHLORIDE 0.9% 1,000 ML IV SCH (00:22)
[2021-03-12] MEDS: METHADONE 5 MG TAB PO SCH ×4 (00:22→17:05)
[2021-03-12] MEDS: VANCOMYCIN 1,500 MG in SODIUM CHLORIDE 0.9% 250 ML IVPB SCH ×3 (02:12→21:41)
[2021-03-12 03:31] LABS: African American GFR (CKD) 130.5 (60.0-200.0); Anion Gap 9.6 mmol/L (4.00-12.00); BUN/Creat Ratio 15.56 Ratio (12.00-20.00); Calcium 7.2 mg/dL (8.7-10.3); Carbon Dioxide 22.4 mmol/L (21.6-31.8); Non-African American GFR(CKD) 112.6 (60.0-200.0); Potassium 3.8 mmol/L (3.5-5.5)
[2021-03-12] MEDS: ACETAMINOPHEN TAB 500 MG TAB PO PRN ×2 (04:18→21:41)
[2021-03-12 07:20] LABS: Amphetamine Screen,Urine Not Detected (NotDetected); Barbiturate Screen,Urine Not Detected (NotDetected); Benzodiazepines Screen,Urine Not Detected (NotDetected); Cocaine Screen,Urine Not Detected (NotDetected); Methadone Screen, Urine Not Detected (NotDetected); Opiate Screen,Urine Not Detected (NotDetected); Oxycodone Screen, Urine Not Detected (NotDetected); Phencyclidine Screen,Urine Not Detected (NotDetected); Tricyclic Antidepressant,Urine Not Detected (NotDetected); Urn Cannabinoid Scrn Not Detected (NotDetected)
[2021-03-12] MEDS: PANTOPRAZOLE 40 MG TABLET PO SCH (07:36)
[2021-03-12] MEDS: MAGNESIUM OXIDE 400 MG TAB PO SCH ×2 (07:36→21:36)
[2021-03-12] MEDS: cloNIDine HCL 0.1 MG TAB PO SCH ×3 (07:37→21:36)
[2021-03-12] MEDS: ENOXAPARIN 40 MG/0.4 ML SYRINGE SQ SCH (07:37)
[2021-03-12] MEDS ORDERED: VANCOMYCIN TROUGH DUE 1 EACH MISC MISCELLANE ONE (09:00)
[2021-03-12 09:43] LABS: African American GFR (CKD) >90 (>60 ml/min/1.73 sqM); Anion Gap 6 mmol/L; Blood Urea Nitrogen 12 mg/dL (9-20); Calcium 7.7 mg/dL (8.4-10.2); Carbon Dioxide 23 mmol/L (22-30); Chloride 106 mmol/L (98-107); Glucose 107 mg/dL (74-99); Non-African American GFR(CKD) 87 (>60 ml/min/1.73 sqM); Potassium 3.9 mmol/L (3.5-5.1); Sodium 135 mmol/L (137-145)
[2021-03-12] MEDS ORDERED: VANCOMYCIN IV PER PHARMACY 1 EACH MISC MISCELLANE PRN (10:22)
[2021-03-12 10:32] LABS: C Reactive Protein 31.4 mg/dL (<1.0)
--- NOTE | 2021-03-12 10:46 | PN ---
PROGRESS NOTE DATE OF SERVICE: 03/12/2021 REASON FOR FOLLOWUP: MRSA bacteremia secondary to tricuspid valve endocarditis and left hip septic arthritis. The patient did spike a fever last night of 101 degrees Fahrenheit. He is afebrile this morning, slightly sleepy, lethargic and did not answer any questions. No other change had been reported by the nursing staff. PHYSICAL EXAMINATION: Blood pressure 109/71 with the pulse of 86, temperature is 97.9. He is 91% on room air. General description is a middle-aged male lying in bed in no distress. RESPIRATORY SYSTEM: Unlabored breathing, clear to auscultation anteriorly. HEART: S1, S2. Regular rate and rhythm. ABDOMEN: Soft, no tenderness. LABS: BUN of 12, creatinine 1.12. Blood cultures from 4th still positive. He did have a purulent drainage from the left hip, those cultures pending. DIAGNOSTIC IMPRESSION AND PLAN: Patient with MRSA bacteremia source is likely left hip septic arthritis with tricuspid valve endocarditis. The patient needs surgery and surgical drainage of any abscess associated with the left hip, now infection for which the patient possibly be transferred to tertiary care as per discussion with the admitting physician. Patient to continue vancomycin and monitor clinical course closely. MMODL / IJN: [id number] /
[2021-03-12 15:00] LABS: HCT 31.4 % (39.6-50.0); HGB 9.4 g/dL (13.0-17.0); MCH 28.2 pg (27.0-32.0); MCHC 29.9 g/dL (32.0-37.0); MCV 94.3 fL (80.0-97.0); Platelet Count 261 X 10*3/uL (140-440); RBC 3.33 X 10*6/uL (4.40-5.60); RDW 14.8 % (11.5-14.5); WBC 21.31 X 10*3/uL (4.50-10.00)
[2021-03-12] MEDS: KETOROLAC 15 MG/ML 1 ML VIAL IVP PRN ×2 (15:14→21:42)
[2021-03-12] MEDS ORDERED: FUROSEMIDE 10 MG/ML 2 ML VIAL IV ONE (16:48)
--- NOTE | 2021-03-12 17:43 | P.DS ---
Providers Date of admission: 03/06/21 04:32 Expected date of discharge: 03/12/21 Attending physician: Alvina Baum MD Consults: 03/06/21 14:19 Consult Physician Routine Consulting Provider: Magno Guadalupe Consult Reason/Comments: BRET Do you want consulting provider notified?: Yes 03/07/21 07:34 Consult Physician Routine Consulting Provider: Carlo Jose Consult Reason/Comments: septic emboli, endocarditits Do you want consulting provider notified?: Yes 03/07/21 11:26 Consult Physician Urgent Consulting Provider: Karli Cruz Consult Reason/Comments: endocarditis, recurrent with septic emboli Do you want consulting provider notified?: Yes 03/08/21 16:06 Consult Physician Routine Consulting Provider: Reynaldo Alonso Consult Reason/Comments: left hip pain Do you want consulting provider notified?: Yes Primary care physician: Stated None Hospital Course: Discharge Diagnosis: 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 MRSA bacteremia, persistent Septic arthritis (acute on chornic) versus osteomyelitis of the left hip status post aspiration of purulent fluid Septic emboli in the lung IV drug use, 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 In the ER he underwent an extensive evaluation. Initial vital signs showed temperature of 102.7 and a heart rate of 140. Laboratory analysis showed white blood cell count of 9.3, d-dimer 6.27, sodium 127, potassium 3.4, LDH 743, CRP 26.4, and pro-calcitonin 1.64. Influenza A, B, PCR, and Covid testing negative. Chest x-ray showed patchy bilateral infiltrates. He was found have severe sepsis was felt to likely have an underlying pneumonia and was subsequently started on vancomycin and ceftriaxone. His blood cultures came back positive for MRSA, and ceftriaxone was discontinued. Infectious disease was consulted. He underwent a CT of the chest which showed no large pulmonary embolism but did show bilateral multifocal organizing consolidation reflective of possible Covid versus septic emboli (COVID testing negative). He underwent an echocardiogram which showed possible vegetation in the tricuspid and mitral valve. Cardiovascular thoracic was consulted, no indication for valve replacement at this time, and therefore no BERT was preformed. 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 Patient had persistently positive blood cultures and there was concern that source control was no adaquate due to infected hip. He underwent aspiration of his left hip with 15 mL of purulent fluid collected. Laboratory analysis pending. Discussed with ortho they are concerned that this infection will required repeated surgery and ultimately a [place] procedure and recommended transfer to a tertiary care facility. Patient was graciously accepted at [facility], currently awaiting bed. Patient seen and examined at bedside. Pain and withdrawal better controlled today, we had a long discussion on about his overall prognosis. He is amenable to transfer for definitive treatment. He reports that he is feeling somewhat short of breath, he has developed some lower extremity edema which is worse than prior. No other complaints currently. Vital signs reviewed and stable. General: ill appearing, no distress, appears at stated age Derm: warm, dry Head: atraumatic, normocephalic, symmetric Eyes: EOMI, no lid lag, anicteric sclera Mouth: no lip lesion, mucus membranes moist Cardiovascular: S1S2 reg, no murmur, positive posterior tibial pulse bilateral, Lungs: Course bs bilateral , no accessory muscle use Abdominal: soft, nontender to palpation, no guarding, no appreciable organomegaly Ext: no gross muscle atrophy, 3+ edema, no contractures Neuro: CN II-XI grossly intact, no focal neuro deficits Psych: Alert, oriented, appropriate affect A total of 37 minutes of time were spent preparing this complex discharge summary . Plan - Discharge Summary Discharge Rx Participant: No New Discharge Prescriptions: No Action No Known Home Medications Discharge Medication List No Known Home Medications 03/06/21 [History] Follow up Appointment(s)/Referral(s): None,Stated [Primary Care Provider] - 1-2 days
[2021-03-12 18:07] LABS: Erythrocyte Sedimentation Rate 64 mm/Hr (0-15)
--- NOTE | 2021-03-12 23:55 | XR ---
EXAMINATION TYPE: XR chest 1V portable DATE OF EXAM: 03/12/2021 COMPARISON: 03/06/2021 HISTORY: Pneumonia. Cough. TECHNIQUE: Single view FINDINGS: There are patchy bilateral areas of interstitial and airspace consolidation. Heart is sligh tly enlarged. There is poor inspiration. Bony thorax is intact. Trachea is midline. Heart size is nor mal. IMPRESSION: Extensive bilateral pulmonary infiltrates are increased compared to old exam.
[2021-03-13] MEDS: METHADONE 5 MG TAB PO SCH ×5 (00:14→23:52)
[2021-03-13 07:30] LABS: ALT 25 U/L (4-49); AST 45 U/L (17-59); African American GFR (CKD) >90 (>60 ml/min/1.73 sqM); Albumin 2.3 g/dL (3.5-5.0); Albumin/Globulin Ratio 0.6; Alkaline Phosphatase 196 U/L (38-126); Anion Gap 8 mmol/L; Blood Urea Nitrogen 12 mg/dL (9-20); Calcium 7.9 mg/dL (8.4-10.2); Carbon Dioxide 23 mmol/L (22-30); Chloride 103 mmol/L (98-107); Globulin 3.7 g/dL; Glucose 99 mg/dL (74-99); Non-African American GFR(CKD) >90 (>60 ml/min/1.73 sqM); Sodium 134 mmol/L (137-145); Total Bilirubin 0.4 mg/dL (0.2-1.3)
[2021-03-13] MEDS: VANCOMYCIN 1,500 MG in SODIUM CHLORIDE 0.9% 250 ML IVPB SCH ×2 (07:38→20:46)
[2021-03-13] MEDS: cloNIDine HCL 0.1 MG TAB PO SCH ×3 (07:38→21:28)
[2021-03-13] MEDS: KETOROLAC 15 MG/ML 1 ML VIAL IVP PRN (07:38)
[2021-03-13] MEDS: MAGNESIUM OXIDE 400 MG TAB PO SCH ×2 (07:38→21:28)
[2021-03-13] MEDS: PANTOPRAZOLE 40 MG TABLET PO SCH (07:38)
[2021-03-13] MEDS: ENOXAPARIN 40 MG/0.4 ML SYRINGE SQ SCH (07:44)
[2021-03-13 07:56] LABS: Potassium 3.8 mmol/L (3.5-5.1)
[2021-03-13 09:20] LABS: HCT 30.4 % (39.6-50.0); HGB 9.5 g/dL (13.0-17.0); MCH 28.5 pg (27.0-32.0); MCHC 31.3 g/dL (32.0-37.0); MCV 91.3 fL (80.0-97.0); Mean Platelet Volume 9.3 fL (9.5-12.2); Platelet Count 310 X 10*3/uL (140-440); RBC 3.33 X 10*6/uL (4.40-5.60); RDW 14.4 % (11.5-14.5); WBC 15.56 X 10*3/uL (4.50-10.00)
[2021-03-13 11:20] LABS: Magnesium 2.1 mg/dL (1.6-2.3)
[2021-03-13] MEDS ORDERED: FUROSEMIDE 10 MG/ML 4 ML VIAL IV STA (11:26)
--- NOTE | 2021-03-13 12:38 | PN ---
PROGRESS NOTE DATE OF SERVICE: 03/13/2021 REASON FOR FOLLOWUP: MRSA bacteremia. INTERVAL HISTORY: The patient is currently afebrile, has been complaining of generalized body aches and pains. No shortness of breath. He is currently on room air. No vomiting, abdominal pain or diarrhea. PHYSICAL EXAMINATION: Blood pressure 128/82 with a pulse of 93, temperature 98.9. He is 100% on 4 L nasal cannula. General description is a middle-aged male lying in bed in no distress. RESPIRATORY SYSTEM: Unlabored breathing, clear to auscultation anteriorly. HEART: S1, S2. Regular rate and rhythm. ABDOMEN: Soft, no tenderness. LAB: Hemoglobin is 9.5, white count 15.5, BUN of 12, creatinine 1.08. DIAGNOSTIC IMPRESSION AND PLAN: Patient with MRSA bacteremia source likely tricuspid valve endocarditis as well as left hip septic arthritis. The patient needs surgery on the left hip to washout as likely source for continuous feeding of the blood. Currently waiting for transfer to tertiary care. He is covered with vancomycin, will continue and monitor clinical course closely. MMODL / IJN: [id number] /
--- NOTE | 2021-03-13 15:04 | P.DS ---
Providers Date of admission: 03/06/21 04:32 Expected date of discharge: 03/13/21 Attending physician: Alvina Baum MD Consults: 03/06/21 14:19 Consult Physician Routine Consulting Provider: Magno Guadalupe Consult Reason/Comments: BRET Do you want consulting provider notified?: Yes 03/07/21 07:34 Consult Physician Routine Consulting Provider: Carlo Jose Consult Reason/Comments: septic emboli, endocarditits Do you want consulting provider notified?: Yes 03/07/21 11:26 Consult Physician Urgent Consulting Provider: Karli Cruz Consult Reason/Comments: endocarditis, recurrent with septic emboli Do you want consulting provider notified?: Yes 03/08/21 16:06 Consult Physician Routine Consulting Provider: Reynaldo Alonso Consult Reason/Comments: left hip pain Do you want consulting provider notified?: Yes Primary care physician: Stated None Hospital Course: Discharge Diagnosis: 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 MRSA bacteremia, persistent Septic arthritis (acute on chornic) versus osteomyelitis of the left hip status post aspiration of purulent fluid Septic emboli, pulmonary IV drug use, 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 In the ER he underwent an extensive evaluation. Initial vital signs showed temperature of 102.7 and a heart rate of 140. Laboratory analysis showed white blood cell count of 9.3, d-dimer 6.27, sodium 127, potassium 3.4, LDH 743, CRP 26.4, and pro-calcitonin 1.64. Influenza A, B, PCR, and Covid testing negative. Chest x-ray showed patchy bilateral infiltrates. He was found have severe sepsis was felt to likely have an underlying pneumonia and was subsequently started on vancomycin and ceftriaxone. His blood cultures came back positive for MRSA, and ceftriaxone was discontinued. Infectious disease was consulted. He underwent a CT of the chest which showed no large pulmonary embolism but did show bilateral multifocal organizing consolidation reflective of possible Covid versus septic emboli (COVID testing negative). He underwent an echocardiogram which showed possible vegetation in the tricuspid and mitral valve. Cardiovascular thoracic was consulted, no indication for valve replacement at this time, and therefore no BRET was preformed. 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 Patient had persistently positive blood cultures and there was concern that source control was no adaquate due to infected hip. He underwent aspiration of his left hip with 15 mL of purulent fluid collected. Laboratory analysis pending. Discussed with ortho they are concerned that this infection will required repeated surgery and ultimately a Girdleston procedure and recommended transfer to a tertiary care facility. Patient was graciously accepted at [facility], currently awaiting bed. Patient seen and examined at bedside. Continues to have pain all over, better than a few days ago, still having some shortness of breath Vital signs reviewed and stable. General: ill appearing, mild distress due to pain, appears at stated age Derm: warm, dry Head: atraumatic, normocephalic, symmetric Eyes: EOMI, no lid lag, anicteric sclera Mouth: no lip lesion, mucus membranes moist Cardiovascular: S1S2 reg, no murmur, positive posterior tibial pulse bilateral, Lungs: Course bs bilateral , no accessory muscle use Abdominal: soft, nontender to palpation, no guarding, no appreciable organomegaly Ext: no gross muscle atrophy, 3+ edema, no contractures Neuro: CN II-XI grossly intact, no focal neuro deficits Psych: Alert, oriented, appropriate affect A total of 37 minutes of time were spent preparing this complex discharge summary . Patient Condition at Discharge: Serious Plan - Discharge Summary Discharge Rx Participant: No New Discharge Prescriptions: No Action No Known Home Medications Discharge Medication List No Known Home Medications 03/06/21 [History] Follow up Appointment(s)/Referral(s): None,Stated [Primary Care Provider] - 1-2 days
[2021-03-14] MEDS: ACETAMINOPHEN TAB 500 MG TAB PO PRN (03:50)
[2021-03-14] MEDS: METHADONE 5 MG TAB PO SCH ×4 (06:00→23:29)
[2021-03-14] MEDS: PANTOPRAZOLE 40 MG TABLET PO SCH (07:39)
[2021-03-14] MEDS: cloNIDine HCL 0.1 MG TAB PO SCH ×3 (07:39→20:21)
[2021-03-14] MEDS: MAGNESIUM OXIDE 400 MG TAB PO SCH ×2 (07:40→20:21)
[2021-03-14] MEDS: ENOXAPARIN 40 MG/0.4 ML SYRINGE SQ SCH (07:40)
[2021-03-14] MEDS: VANCOMYCIN 1,500 MG in SODIUM CHLORIDE 0.9% 250 ML IVPB SCH ×2 (07:40→20:21)
[2021-03-14 11:36] LABS: HCT 26.8 % (39.6-50.0); HGB 8.4 g/dL (13.0-17.0); MCH 28.5 pg (27.0-32.0); MCHC 31.3 g/dL (32.0-37.0); MCV 90.8 fL (80.0-97.0); Mean Platelet Volume 9.4 fL (9.5-12.2); Platelet Count 315 X 10*3/uL (140-440); RBC 2.95 X 10*6/uL (4.40-5.60); WBC 16.25 X 10*3/uL (4.50-10.00)
[2021-03-14 12:09] LABS: African American GFR (CKD) 114.9 (60.0-200.0); Albumin 2.3 g/dL (3.80-4.90); Albumin/Globulin Ratio 0.7 (1.60-3.17); Calcium 7.5 mg/dL (8.7-10.3); Globulin 3.3 g/dL (1.6-3.3); Non-African American GFR(CKD) 99.1 (60.0-200.0); Potassium 4.1 mmol/L (3.5-5.5); Total Bilirubin 0.4 mg/dL (0.2-1.2); Total Protein 5.6 g/dL (6.2-8.2)
[2021-03-14] MEDS ORDERED: CYCLOBENZAPRINE 5 MG TAB PO PRN (14:08)
[2021-03-14] MEDS: KETOROLAC 15 MG/ML 1 ML VIAL IVP PRN ×2 (14:21→20:20)
--- NOTE | 2021-03-14 16:48 | PN ---
PROGRESS NOTE DATE OF SERVICE: 03/14/2021 REASON FOR FOLLOWUP: MRSA bacteremia secondary to left hip septic arthritis and tricuspid valve endocarditis. INTERVAL HISTORY: Patient is currently afebrile. Still complaining of body aches and significant pain to the left hip area. Denies having any chest pain. Breathing is comfortably. No vomiting. No abdominal pain or diarrhea. PHYSICAL EXAMINATION: Blood pressure 133/86, pulse of 89, temperature 98.6. He is 95% on room air. General description: The patient is a middle-aged male lying in bed in no distress. Respiratory system: Unlabored breathing, clear to auscultation anteriorly. Heart: S1, S2. Regular rate and rhythm. Abdomen: Soft, no tenderness. LABS: Hemoglobin 8.4, white count 16.25, creatinine is 1.0. Vancomycin random was 22.7. Blood cultures 5/6 so far negative. DIAGNOSTIC IMPRESSION AND PLAN: Patient with MRSA bacteremia, source is multifactorial in this patient who did have a tricuspid valve endocarditis and left hip septic arthritis. Waiting for transfer to tertiary care for surgery for the left hip to help clear up this bacteremia. Continue the vancomycin and monitor kidney function closely. MMODL / IJN: [id number] /
--- NOTE | 2021-03-14 17:43 | P.PN ---
Subjective Progress Note Date: 03/14/21 (delayed charting seen at 1030) Principal diagnosis: left leg pain Patient is a 30-year-old male with a history of MSSA infective endocarditis is completed antibiotics on 02/03 (he was to complete treatment 02/07), intravenous drug use, and tobacco abuse who presented to the emergency department with complaints of left hip and chest pain. In the ER he underwent an extensive evaluation. Initial vital signs showed temperature of 102.7 and a heart rate of 140. Laboratory analysis showed white blood cell count of 9.3, d-dimer 6.27, sodium 127, potassium 3.4, LDH 743, CRP 26.4, and pro-calcitonin 1.64. Influenza A, B, PCR, and Covid testing negative. Chest x-ray showed patchy bilateral infiltrates. He was found have severe sepsis was felt to likely have an underlying pneumonia and was subsequently started on vancomycin and ceftriaxone. His blood cultures came back positive for MRSA, and ceftriaxone was discontinued. Infectious disease was consulted. He underwent a CT of the chest which showed no large pulmonary embolism but did show bilateral multifocal organizing consolidation reflective of possible Covid versus septic emboli (COVID testing negative). He underwent an echocardiogram which showed possible vegetation in the tricuspid and mitral valve. Cardiovascular thoracic was consulted, no indication for valve replacement at this time, and therefore no BRET was preformed. 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 Patient had persistently positive blood cultures and there was concern that source control was no adaquate due to infected hip. He underwent aspiration of his left hip with 15 mL of purulent fluid collected. Laboratory analysis pending. Discussed with ortho they are concerned that this infection will required repeated surgery and ultimately a Girdleston procedure and recommended transfer to a tertiary care facility. Patient was graciously accepted at [facility] and [facility], currently awaiting bed at either hospital. Patient seen and examined at bedside. He is sleeping on approximately room. When he wakes up he is crying and asking for more pain medication, apparently his Toradol timeout stay but hadn't been working well for him. His swelling is somewhat better, denies any nausea or vomiting at this time. General: non toxic, no distress, appears at stated age Derm: warm, dry Head: atraumatic, normocephalic, symmetric Eyes: EOMI, no lid lag, anicteric sclera Mouth: no lip lesion, mucus membranes moist Cardiovascular: S1S2 reg, no murmur, positive posterior tibial pulse bilateral, Lungs: Coarse breath sounds bilateral, no rhonchi, no rales , no accessory muscle use Abdominal: soft, nontender to palpation, no guarding, no appreciable organomegaly Ext: no gross muscle atrophy, 2+ edema, no contractures Neuro: CN II-XI grossly intact, no focal neuro deficits Psych: Alert, oriented, anxious and upset 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 MRSA bacteremia, persistent Septic arthritis (acute on chornic) versus osteomyelitis of the left hip status post aspiration of purulent fluid Septic emboli, pulmonary - Vanco - ID recs - Ortho recs: needs transfer to tertiary care center - CT surgery: No class 1 indication for surgery IV drug use, 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 Acute on chronic pain secondary to hip infection - methadone, toradol, tylenol - flexeril - catapres Iron deficiency anemia - ferrous sulfate - follow CBC Tobacco abuse - cessation - nicotine replacement Acute fluid overload due to resuscitation - lasix thrombocytopenia, resolved Hepatitis C Hyponatremia, resolved DVT prophylaxis: Lovenox Discussed with: patient, nursing Anticipated discharge: await bed at [facility] or [facility] Anticipated discharge place: await bed at [facility] or [facility] A total of 35 minutes was spent on the care of this complex patient more than 50% of the time was spent in counseling and care coordination. Objective - Vital Signs Vital signs: Vital Signs Temp 98.6 F 03/14/21 14:57 Pulse 89 03/14/21 14:57 Resp 17 03/14/21 14:57 BP 133/86 03/14/21 14:57 Pulse Ox 95 03/14/21 14:57 Intake & Output 03/13/21 03/14/21 03/14/21 18:59 06:59 18:59 Intake Total 1165 Output Total 1500 Balance -335 Intake: Oral 1165 Output: Urine 1500 Other: Voiding Method Urinal Urinal Urinal # Bowel Movements 0 0 - Labs CBC & Chem 7: 03/14/21 06:53 03/14/21 06:53 Labs: Abnormal Lab Results - Last 24 Hours (Table) 03/14/21 03/14/21 Range/Units 06:53 06:53 WBC 16.25 H (4.50-10.00) X 10*3/uL RBC 2.95 L (4.40-5.60) X 10*6/uL Hgb 8.4 L (13.0-17.0) g/dL Hct 26.8 L (39.6-50.0) % MCHC 31.3 L (32.0-37.0) g/dL MPV 9.4 L (9.5-12.2) fL Sodium 134 L (135-145) mmol/L BUN/Creatinine Ratio 10.00 L (12.00-20.00) Ratio Calcium 7.5 L (8.7-10.3) mg/dL AST 54 H (14-35) U/L Alkaline Phosphatase 183 H (41-126) U/L Total Protein 5.6 L (6.2-8.2) g/dL Albumin 2.30 L (3.80-4.90) g/dL Albumin/Globulin Ratio 0.70 L (1.60-3.17) g/dL Microbiology - Last 24 Hours (Table) 03/13/21 06:47 Blood Culture - Preliminary Blood No Growth after 24 hours 03/11/21 11:02 Blood Culture Gram Stain - Final Blood Blood Culture - Final Methicillin resist S. aureus 03/10/21 06:46 Blood Culture Gram Stain - Final Blood Blood Culture - Final Methicillin resist S. aureus 03/10/21 06:46 Blood Culture Gram Stain - Final Blood Blood Culture - Final Methicillin resist S. aureus 03/11/21 15:00 Gram Stain - Final Aspirate Body Fluid Culture - Final Methicillin resist S. aureus
[2021-03-14 19:51] VITALS: BP 124/81; PULSE 87; RESP 16; TEMP 99.3
[2021-03-15] MEDS ORDERED: VANCOMYCIN TROUGH DUE 1 EACH MISC MISCELLANE ONE (08:00)
[2021-03-15] MEDS ORDERED: FUROSEMIDE 10 MG/ML 4 ML VIAL IV SCH (09:00)
== END 2021-03-15 00:15 | disposition short-term general hospital (02) | DRG 871 ==
LOC: EC 01:50 → 4SSUR 04:32
PROVIDERS: ADMIT Internal Medicine; ATTEND Internal Medicine
PROC: B246ZZ4 Ultrasonography of Right and Left Heart, Transesophageal (ICD-10-PCS; principal; 2021-03-06)
DX: A41.02 Sepsis due to Methicillin resistant Staphylococcus aureus (principal); I33.0 Acute and subacute infective endocarditis; I26.90 Septic pulmonary embolism without acute cor pulmonale; J18.9 Pneumonia, unspecified organism; E87.1 Hypo-osmolality and hyponatremia; I76 Septic arterial embolism; M00.9 Pyogenic arthritis, unspecified; M87.9 Osteonecrosis, unspecified; F11.23 Opioid dependence with withdrawal; R65.20 Severe sepsis without septic shock; Z20.822 Contact with and (suspected) exposure to COVID-19; E87.6 Hypokalemia; D69.6 Thrombocytopenia, unspecified; F17.200 Nicotine dependence, unspecified, uncomplicated; Z86.79 Personal history of other diseases of the circulatory system; M19.90 Unspecified osteoarthritis, unspecified site; B19.20 Unspecified viral hepatitis C without hepatic coma; E87.70 Fluid overload, unspecified; D50.9 Iron deficiency anemia, unspecified; M25.552 Pain in left hip; B18.2 Chronic viral hepatitis C; F15.90 Other stimulant use, unspecified, uncomplicated; G89.29 Other chronic pain; Z86.19 Personal history of other infectious and parasitic diseases; I07.1 Rheumatic tricuspid insufficiency; Z76.5 Malingerer [conscious simulation]
CPT/HCPCS: 20611; 36415; 71045; 71275; 73502; 80048; 80053; 80202; 80306; 81001; 82728; 83540; 83550; 83605; 83615; 83735; 83880; 84145; 84484; 85025; 85027; 85379; 85610; 85652; 86140; 87040; 87070; 87075; 87077; 87186; 87205; 87635; 87636; 93005; 93306; 96365; 96366; 96375; 99291

== ENCOUNTER 2021-06-22 21:41 | Inpatient (IN) | payer MEDICARE, OTHER ==
--- NOTE | 2021-06-22 22:13 | ED ---
Chest Pain HPI - General Chief Complaint: Chest Pain Stated Complaint: recheck Time Seen by Provider: 06/22/21 21:53 Source: patient Mode of arrival: wheelchair Limitations: no limitations - History of Present Illness Initial Comments: This patient is 31-year-old man who presents with a number of concerns going back approximately a month. The patient states that he has been having some left hip pain which limits his mobility. He states that he had probable many years ago and then also had what sounds like left hip septic arthritis. He states that as result he has chronic pain at the left hip and knee doesn't move around much. Over the past month when he has been exerting himself he finds is getting short of breath and he has chest tightness. The patient also has history of infective endocarditis secondary to IVDA. He states that he had been treated with Bactrim. He did not require valve replacement. Patient admits to recent IVDA stating that he has been clean for 8 days now low. He is not having any fever or chills. No dyspnea at rest. No edema. MD Complaint: chest pain Onset/Timin -: month(s) Onset: during exertion Pain Location: left chest, right chest Pain Radiation: none Quality: tightness Consistency: intermittent Improves With: nothing Worsens With: exertion - Related Data Home Medications Medication Instructions Recorded Confirmed No Known Home Medications 03/06/21 03/06/21 Allergies Allergy/AdvReac Type Severity Reaction Status Date / Time tramadol [From Ultram] AdvReac Mild Unknown Verified 06/22/21 21:50 Review of Systems ROS Statement: Those systems with pertinent positive or pertinent negative responses have been documented in the HPI. ROS Other: All systems not noted in ROS Statement are negative. Constitutional: Denies: fever, chills Respiratory: Denies: cough, dyspnea, hemoptysis Cardiovascular: Reports: chest pain, dyspnea on exertion. Denies: palpitations, orthopnea, edema, syncope Gastrointestinal: Denies: abdominal pain, vomiting, diarrhea Genitourinary: Denies: dysuria, hematuria, testicular pain Musculoskeletal: Denies: back pain Skin: Denies: rash Neurological: Denies: headache, weakness EKG Findings - EKG Results: EKG: interpreted by ERMD, sinus rhythm (Rate 90 bpm), normal axis, normal QRS, normal ST/T Past Medical History Additional Past Medical History / Comment(s): Infected cardiac valve per pt a couple months ago-states he never followed up, underwent IV antibiotics at that time but did not complete the course of antibiotics per the patient. 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 Past Anesthesia/Blood Transfusion Reactions: No Reported Reaction Past Psychological History: No Psychological Hx Reported Smoking Status: Current every day smoker Past Alcohol Use History: None Reported Past Drug Use History: Heroin, Methamphetamine - Past Family History Father Additional Family Medical History / Comment(s): Father lives in [place] and had an injury and is disabled. Mother Family Medical History: Vascular Disorder Additional Family Medical History / Comment(s): Mother of a brain aneurysm. Sister(s) Family Medical History: No Reported History Additional Family Medical History / Comment(s): pt lives with his sister. General Exam Limitations: no limitations General appearance: alert, in no apparent distress Head exam: Present: atraumatic, normocephalic Eye exam: Present: normal appearance. Absent: scleral icterus, conjunctival i njection Neck exam: Present: normal inspection Respiratory exam: Present: normal lung sounds bilaterally. Absent: respiratory distress, wheezes, rales, rhonchi, stridor Cardiovascular Exam: Present: regular rate, normal rhythm, normal heart sounds. Absent: systolic murmur, diastolic murmur, rubs, gallop GI/Abdominal exam: Present: soft. Absent: distended, tenderness, guarding, rebound, rigid, mass Extremities exam: Present: normal inspection, normal capillary refill. Absent: pedal edema, calf tenderness Back exam: Present: normal inspection. Absent: CVA tenderness (R), CVA tenderness (L) Neurological exam: Present: alert Skin exam: Present: warm, dry, intact, normal color. 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
--- NOTE | 2021-06-22 22:34 | XR ---
EXAMINATION TYPE: XR chest 2V DATE OF EXAM: 06/22/2021 COMPARISON: 03/12/2021 HISTORY: Chest pain TECHNIQUE: FINDINGS: Heart and mediastinum are normal. Lungs are clear of consolidation. Diaphragm is normal. Shawn ny thorax is intact. There are chest leads. There is linear density in the lingula. IMPRESSION: There is essentially complete clearing of the extensive pulmonary infiltrates compared to old exam.
[2021-06-22 22:41] LABS: Anisocytosis Slight; HCT 28.6 % (39.0-53.0); HGB 9.5 gm/dL (13.0-17.5); MCH 26.7 pg (25.0-35.0); MCHC 33.3 g/dL (31.0-37.0); MCV 80.2 fL (80.0-100.0); Mean Platelet Volume 8.4; Platelet Count 105 k/uL (150-450); Poikilocytosis Moderate; RBC 3.56 m/uL (4.30-5.90); RDW 16.4 % (11.5-15.5); WBC 12.5 k/uL (3.8-10.6)
[2021-06-22 22:51] LABS: ALT 9 U/L (4-49); AST 21 U/L (17-59); African American GFR (CKD) >90 (>60 ml/min/1.73 sqM); Alkaline Phosphatase 125 U/L (38-126); Anion Gap 10 mmol/L; Blood Urea Nitrogen 16 mg/dL (9-20); Calcium 8.6 mg/dL (8.4-10.2); Carbon Dioxide 25 mmol/L (22-30); Chloride 99 mmol/L (98-107); Glucose 122 mg/dL (74-99); Magnesium 1.9 mg/dL (1.6-2.3); Non-African American GFR(CKD) >90 (>60 ml/min/1.73 sqM); Potassium 3.1 mmol/L (3.5-5.1); Sodium 134 mmol/L (137-145); Total Bilirubin 0.3 mg/dL (0.2-1.3); Total Protein 6.7 g/dL (6.3-8.2)
[2021-06-22 23:10] LABS: INR 1.6 (<1.2); Partial Thromboplastin Time 27.4 sec (22.0-30.0); Prothrombin Time 15.9 sec (9.0-12.0)
[2021-06-22 23:28] LABS: Band Neutrophils % 1 %; Lymphocytes # (M) 3.25 k/uL (1.0-4.8); Monocytes # (M) 0.88 k/uL (0-1.0); Myelocytes # (M) 0.13 k/uL (0); Myelocytes % 1 %; Neutrophils % (M) 65 %; Nucleated Red Blood Cells 0 /100 WBC (0-0); Reactive Lymphocytes Present; Total Cells Counted 100
[2021-06-22 23:30] LABS: C Reactive Protein 15.4 mg/dL (<1.0)
--- NOTE | 2021-06-22 23:54 | CT ---
EXAMINATION TYPE: CT chest angio for PE DATE OF EXAM: 06/22/2021 COMPARISON: 03/06/2021 HISTORY: pe CT DLP: 220.6 mGycm Automated exposure control for dose reduction was used. CONTRAST: Performed with IV Contrast, patient injected with 70 mL of Isovue 370. There are 3-D post processed images. There is patchy reticular interstitial infiltrate in both lungs. There is no pleural effusion. There is no pericardial effusion. Heart size is normal. There are no hilar masses. There is no mediastinal adenopathy. Thoracic aorta is intact. There is no aneurysm or dissection. There is no evidence of filling defect in the pulmonary arteries. Thoracic spine is intact. There is no compression fracture. Sternum is intact. The bony thorax is int act. Spleen is enlarged and measures 15 cm. IMPRESSION: No evidence of pulmonary embolism. Mild reticular pulmonary nodular interstitial infiltrates. There i s improvement in the nodular infiltrates significantly compared to old exam. Splenomegaly similar to old exam.
[2021-06-22] MEDS ORDERED: POTASSIUM CHLORIDE ER 20 MEQ TAB.ER PO STA (23:55)
[2021-06-22] MEDS ORDERED: KETOROLAC 15 MG/ML 1 ML VIAL IVP STA (23:55)
[2021-06-23] MEDS ORDERED: NALOXONE 0.4 MG/ML 1 ML VIAL IV PRN (00:59)
[2021-06-23] MEDS ORDERED: MAG HYDROX/AL HYDROX/SIMETH 30 ML CUP PO PRN (00:59)
[2021-06-23] MEDS ORDERED: IBUPROFEN 600 MG TAB PO STA (01:01)
[2021-06-23] MEDS ORDERED: SULFAMETHOX-TMP 800-160MG 1 EACH TAB PO STA (01:02)
[2021-06-23] MEDS: SODIUM CHLORIDE 0.9% 1,000 ML IV SCH ×2 (01:09→17:22)
[2021-06-23] MEDS: TEMAZEPAM 15 MG CAP PO PRN ×2 (01:45→22:12)
--- NOTE | 2021-06-23 02:03 | XR ---
EXAMINATION TYPE: XR Hip Complete LT DATE OF EXAM: 06/23/2021 COMPARISON: 03/10/2021 HISTORY: Hip pain TECHNIQUE: 2 views. FINDINGS: There is deformity of the femoral head with erosion in the acetabulum and osteosclerosis on both side s of the hip joint. I see no acute fracture. The sacroiliac joint appears normal. IMPRESSION: Poorly of the left hip. There is some erosion of the articular surface of the acetabulum and femoral head deformity. This could be chronic septic arthritis. Inflammatory arthritis also possi ble. There is progression of disease compared to old exam.
--- NOTE | 2021-06-23 02:05 | P.HPIM ---
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 Patient notes that he has recently been following up with Hospital in [place] where he was told that he had another bout of endocarditis for which he was given a course of antibiotics that he completed a few month ago. Patient also reports being told that he had an "infection in his left hip" which was also treated with oral antibiotics and he was advised to abstain from any further IV drug use. The patient reports however that he continues to use IV heroin with last use the days prior to presentation. He not es that he has had constant 10 out of 10 left hip pain, especially during any weightbearing or movement of the joint. He also reports exertional dyspnea and occasional substernal resting chest discomfort, lasting for a few seconds at a time and resolving spontaneously. He however denied fever, chills, nausea, vomiting, abdominal pain, diarrhea. Further denied weakness, headaches, numbness, tingling. He underwent an extensive evaluation in emergency room with WBC count 12.5, hemoglobin 9.5, d-dimer 4.28, potassium 3.1, ESR 53, CRP 15.4. Lactic acid was 1.3. Chest CT in the emergency room was unremarkable. Review of systems: Pertinent positives and negatives as discussed in HPI, a complete review of systems was performed and all other systems are negative. Physical examination: General: non toxic, no distress, appears older than stated age, normal weight Derm: no unusual rashes/lesions no unusual ecchymoses, warm, dry Head: atraumatic, normocephalic, symmetric Eyes: EOMI, no lid lag, anicteric sclera, pupils equal round reactive to light ENT: Nose and ears atraumatic, no thrush, no pharyngeal erythema Neck: No thyromegaly, no cervical lymphadenopathy, trachea midline, supple Mouth: no lip lesion, mucus membranes moist Cardiovascular: S1S2 reg, no murmur, positive posterior tibial pulse bilateral, no edema, capillary refill less than 2 seconds Lungs: CTA bilateral, no rhonchi, no rales , no accessory muscle use Abdominal: soft, nontender to palpation, no guarding, no appreciable organomegaly, normal bowel sounds Ext: no gross muscle atrophy, muscle strength 5 out of 5 in all extremities grossly except left lower extremity with left hip pain with passive movement, no contractures, Neuro: CN II-XI grossly intact, light touch intact all 4 extremities, finger to nose within normal limits, Psych: Alert, oriented, appropriate affect Assessment/plan Left hip pain, rule out septic arthritis -Hip x-ray pending -Consider follow-up MRI versus CT with contrast if un-diagnostic -Start empiric MRSA coverage w/ Vancomycin Chest pain, r/o endocarditis -Obtain Echo -ID consult -C/w Vancomycin -F/u blood cultures Polysubstance abuse -Advised on importance of cessation Bicytopenia -Suspected due to polysubstance abuse -At baseline Hypokalemia -Replace and monitor DVT prophylaxis -Heparin subq The patient is admitted with an anticipated less than 2 midnight stay for evaluation of L hip pain. CODE STATUS: Full Code Discussed with: Patient Anticipated discharge date: 1-[address]: Home Past Medical History Additional Past Medical History / Comment(s): Infected cardiac valve per pt a couple months ago-states he never followed up, underwent IV antibiotics at that time but did not complete the course of antibiotics per the patient. 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 Past Anesthesia/Blood Transfusion Reactions: No Reported Reaction Past Psychological History: No Psychological Hx Reported Smoking Status: Current every day smoker Past Alcohol Use History: None Reported Past Drug Use History: Heroin, Methamphetamine - Past Family History Father Additional Family Medical History / Comment(s): Father lives in [place] and had an injury and is disabled. Mother Family Medical History: Vascular Disorder Additional Family Medical History / Comment(s): Mother of a brain aneurysm. Sister(s) Family Medical History: No Reported History Additional Family Medical History / Comment(s): pt lives with his sister. Medications and Allergies Home Medications Medication Instructions Recorded Confirmed Type No Known Home Medications 03/06/21 06/22/21 History Allergies Allergy/AdvReac Type Severity Reaction Status Date / Time tramadol [From Ultram] AdvReac Mild Unknown Verified 06/22/21 22:40 Physical Exam Vitals: Vital Signs Temp Pulse Pulse Resp BP Pulse Ox 06/23/21 00:43 100 18 98/61 97 06/22/21 23:43 94 18 117/71 98 06/22/21 22:06 80 06/22/21 21:47 98 F 101 H 20 108/71 97 Intake and Output 06/22/21 06/22/21 06/23/21 14:59 22:59 06:59 Other: Weight 63.503 kg Results CBC & Chem 7: 06/22/21 22:16 06/22/21 22:16 Labs: Abnormal Lab Results - Last 24 Hours (Table) 06/22/21 06/22/21 06/22/21 Range/Units 11:01 22:16 22:16 WBC 12.5 H (3.8-10.6) k/uL RBC 3.56 L (4.30-5.90) m/uL Hgb 9.5 L (13.0-17.5) gm/dL Hct 28.6 L (39.0-53.0) % RDW 16.4 H (11.5-15.5) % Plt Count 105 L (150-450) k/uL Neutrophils # (Manual) 8.20 H (1.3-7.7) k/uL Myelocytes # (Manual) 0.13 H (0) k/uL ESR (0-15) mm/hr PT 15.9 H (9.0-12.0) sec INR 1.6 H (<1.2) D-Dimer 4.28 H (<0.60) mg/L FEU Sodium 134 L (137-145) mmol/L Potassium 3.1 L (3.5-5.1) mmol/L Creatinine 0.58 L (0.66-1.25) mg/dL Glucose 122 H (74-99) mg/dL C-Reactive Protein 15.4 H (<1.0) mg/dL Albumin 3.0 L (3.5-5.0) g/dL 06/22/21 Range/Units 23:00 WBC (3.8-10.6) k/uL RBC (4.30-5.90) m/uL Hgb (13.0-17.5) gm/dL Hct (39.0-53.0) % RDW (11.5-15.5) % Plt Count (150-450) k/uL Neutrophils # (Manual) (1.3-7.7) k/uL Myelocytes # (Manual) (0) k/uL ESR 53 H (0-15) mm/hr PT (9.0-12.0) sec INR (<1.2) D-Dimer (<0.60) mg/L FEU Sodium (137-145) mmol/L Potassium (3.5-5.1) mmol/L Creatinine (0.66-1.25) mg/dL Glucose (74-99) mg/dL C-Reactive Protein (<1.0) mg/dL Albumin (3.5-5.0) g/dL
[2021-06-23] MEDS ORDERED: VANCOMYCIN IV PER PHARMACY 1 EACH MISC MISCELLANE PRN (03:01)
[2021-06-23] MEDS ORDERED: POTASSIUM CHLORIDE ER 20 MEQ TAB.ER PO STA ×2 (03:02→11:29)
[2021-06-23] MEDS ORDERED: VANCOMYCIN 1,250 MG in SODIUM CHLORIDE 0.9% 250 ML IVPB SCH (03:30)
[2021-06-23] MEDS: ENOXAPARIN 40 MG/0.4 ML SYRINGE SQ SCH ×3 (08:18→11:00)
[2021-06-23] MEDS: FAMOTIDINE 20 MG TAB PO SCH ×2 (08:18→22:12)
[2021-06-23 08:57] LABS: HCT 28.1 % (39.6-50.0); HGB 8.7 g/dL (13.0-17.0); MCH 25.7 pg (27.0-32.0); MCV 82.9 fL (80.0-97.0); Mean Platelet Volume 11.9 fL (9.5-12.2); Platelet Count 130 X 10*3/uL (140-440); RBC 3.39 X 10*6/uL (4.40-5.60); RDW 15.8 % (11.5-14.5); WBC 11.61 X 10*3/uL (4.50-10.00)
[2021-06-23] MEDS ORDERED: HYDROmorphone 0.5 MG/0.5 ML SYRINGE IVP PRN (10:10)
[2021-06-23 10:34] LABS: ALT <8 U/L (10-49); AST 15 U/L (14-35); African American GFR (CKD) 153.1 (60.0-200.0); Albumin/Globulin Ratio 0.85 (1.60-3.17); Alkaline Phosphatase 115 U/L (41-126); BUN/Creat Ratio 21.67 Ratio (12.00-20.00); Calcium 8.2 mg/dL (8.7-10.3); Carbon Dioxide 28.3 mmol/L (21.6-31.8); Chloride 103 mmol/L (96-109); Globulin 3.3 g/dL (1.6-3.3); Glucose 106 mg/dL (70-110); Non-African American GFR(CKD) 132.1 (60.0-200.0); Potassium 3.1 mmol/L (3.5-5.5); Sodium 139 mmol/L (135-145); Total Bilirubin 0.2 mg/dL (0.3-1.2); Total Protein 6.1 g/dL (6.2-8.2)
--- NOTE | 2021-06-23 11:29 | ECHOF ---
Referral Reason:r/o endocarditis MEASUREMENTS -------- HEIGHT: 182.9 cm WEIGHT: 63.5 kg BP: 111/72 RVIDd: 3.9 cm (< 3.3) IVSd: 1.3 cm (0.6 - 1.1) LVIDd: 4.0 cm (3.9 - 5.3) LVPWd: 1.2 cm (0.6 - 1.1) IVSs: 1.6 cm LVIDs: 2.9 cm LVPWs: 1.6 cm LAESV Index (A-L): 23.27 ml/m Ao Diam: 3.3 cm (2.0 - 3.7) AV Cusp: 2.3 cm (1.5 - 2.6) LA Diam: 3.1 cm (2.7 - 3.8) MV EXCURSION: 25.063 mm (> 18.000) MV EF SLOPE: 51 mm/s (70 - 150) EPSS: 0.3 cm MV E Isma: 0.75 m/s MV DecT: 232 ms MV A Isma: 0.98 m/s MV E/A Ratio: 0.76 RAP: 5.00 mmHg RVSP: 43.76 mmHg FINDINGS -------- Sinus rhythm. This was a technically adequate study. The left ventricular size is normal. There is mild concentric left ventricular hypertrophy. Overa ll left ventricular systolic function is normal with, an EF between 55 - 60 %. The diastolic fillin g pattern is normal for the age of the patient 4.66. The right ventricle is mild to moderately enlarged. Normal LA size by volume 22+/-6 ml/m2. The right atrium is mildly enlarged. Interatrial and interventricular septum intact. The aortic valve is trileaflet and appears structurally normal. There is no evidence of aortic regu rgitation. There is no evidence of aortic stenosis. Mild mitral regurgitation is present. Cannot exclude vegeation on the PMVL. Severe tricuspid regurgitation present. There is moderate pulmonary hypertension. The right ventr icular systolic pressure, as measured by Doppler, is 43.76mmHg. Moderate, non-mobile vegetation att ached to the posterior tricuspid valve leaflet. There is no pulmonic regurgitation present. The aortic root size is normal. Normal inferior vena cava with normal inspiratory collapse consistent with estimated right atrial pre ssure of 5 mmHg. There is no pericardial effusion. CONCLUSIONS -------- 1. The left ventricular size is normal. 2. There is mild concentric left ventricular hypertrophy. 3. Overall left ventricular systolic function is normal with, an EF between 55 - 60 %. 4. The diastolic filling pattern is normal for the age of the patient 4.66 5. The right ventricle is mild to moderately enlarged. 6. The right atrium is mildly enlarged. 7. Mild mitral regurgitation is present. 8. Cannot exclude vegeation on the PMVL. 9. Severe tricuspid regurgitation present. 10. There is moderate pulmonary hypertension. 11. The right ventricular systolic pressure, as measured by Doppler, is 43.76mmHg. 12. Moderate, non-mobile vegetation attached to the posterior tricuspid valve leaflet. RADAR SCIENTIST: Olivia Chaparro RDCS
[2021-06-23] MEDS: ACETAMINOPHEN TAB 325 MG TAB PO PRN (11:54)
--- NOTE | 2021-06-23 13:07 | P.CNOR ---
History of Present Illness - [facility] Consult date: 06/23/21 Consult reason: joint pain History of present illness: Patient is a 31-year-old male who presented to [facility] early this morning with regards to pain involving the left hip and reported shortness of breath. Patient was initially evaluated by the emergency room staff, multiple lab tests and imaging test were ordered. Patient has a very extensive history with regards to multiple hospital visits with bacteremia and left hip issues. Patient is known history of IVDA, he states that he last used a few days ago. Patient was seen at this hospital back in February 2021 with concerns of infective endocarditis, bacteremia and septic left hip arthropathy. [facility] the other orthopedic practice was initially consulted on this patient. There is documentation from the internal medicine doctors of a hip aspiration that demonstrated purulent material, I'm not sure what facility this was done at. [facility] did recommend transfer to a tertiary care facility for further treatment of his left hip. Patient was seen today at bedside, he notes significant pain involving the left hip mainly when he weightbears. He states that he was recently in the hospital in [place] for infective carditis and his left hip. Patient was on a course of antibiotics for about 2 weeks, and he transitioned to oral medications for discharge. He has no other orthopedic complaints, this to include bilateral upper extremity or lower extremity pain. Patient denies any recent orthopedic surgery involving his left hip. He states that he initially had a hip infection when he was 12 years old, a procedure was done at that time in [place]. Patient does not remember the exact procedure that was done. Review of Systems All systems: negative Constitutional: Reports as per [facility] Past Medical History Additional Past Medical History / Comment(s): Infected cardiac valve per pt a couple months ago-states he never followed up, underwent IV antibiotics at that time but did not complete the course of antibiotics per the patient. History of L hip osteomylitis/hip joint surgically removed. endocarditis History of Any Multi-Drug Resistant Organisms: MRSA Year Discovered:: 03/10/21 MDRO Source:: Blood Past Surgical History: Orthopedic Surgery Additional Past Surgical History / Comment(s): 2 hip surgeries and eventual removal of hip joint. Past Anesthesia/Blood Transfusion Reactions: No Reported Reaction Past Psychological History: No Psychological Hx Reported Smoking Status: Current every day smoker Past Alcohol Use History: None Reported Past Drug Use History: Heroin, Methamphetamine - Past Family History Father Additional Family Medical History / Comment(s): Father lives in [place] and had an injury and is disabled. Mother Family Medical History: Vascular Disorder Additional Family Medical History / Comment(s): Mother of a brain aneurysm. Sister(s) Family Medical History: No Reported History Additional Family Medical History / Comment(s): pt lives with his sister. Medications and Allergies Home Medications Medication Instructions Recorded Confirmed Type No Known Home Medications 03/06/21 06/22/21 History Allergies Allergy/AdvReac Type Severity Reaction Status Date / Time tramadol [From Ultram] AdvReac Mild Unknown Verified 06/22/21 22:40 Physical Examination Left lower extremity: There is obvious shortening of the left lower extremity when compared to the contralateral side. There is no obvious skin changes noted, as to include open lesions, erythema or areas of soft tissue swelling. Range of motion is very limited with regards to left hip. Any internal and external rotation reproduces groin pain. He is able to straight leg raise, this is painful on exam. No significant tenderness is reproducible with palpation throughout the lower extremity. Calf is soft, no tenderness with palpation. Plantar flexion, dorsi flexion, EHL, FHL are intact. Sensory exam to light touch is intact throughout the extremity. Dorsalis pedis pulses 2+ Results - Labs Labs: Abnormal Lab Results - Last 24 Hours (Table) 06/22/21 06/22/21 06/22/21 Range/Units 11:01 22:16 22:16 WBC 12.5 H (3.8-10.6) k/uL RBC 3.56 L (4.30-5.90) m/uL Hgb 9.5 L (13.0-17.5) gm/dL Hct 28.6 L (39.0-53.0) % MCH (27.0-32.0) pg MCHC (32.0-37.0) g/dL RDW 16.4 H (11.5-15.5) % Plt Count 105 L (150-450) k/uL Neutrophils # (Manual) 8.20 H (1.3-7.7) k/uL Myelocytes # (Manual) 0.13 H (0) k/uL ESR (0-15) mm/hr PT 15.9 H (9.0-12.0) sec INR 1.6 H (<1.2) D-Dimer 4.28 H (<0.60) mg/L FEU Sodium 134 L (137-145) mmol/L Potassium 3.1 L (3.5-5.1) mmol/L Creatinine 0.58 L (0.66-1.25) mg/dL BUN/Creatinine Ratio (12.00-20.00) Ratio Glucose 122 H (74-99) mg/dL Calcium (8.7-10.3) mg/dL Total Bilirubin (0.3-1.2) mg/dL ALT (10-49) U/L C-Reactive Protein 15.4 H (<1.0) mg/dL Total Protein (6.2-8.2) g/dL Albumin 3.0 L (3.5-5.0) g/dL Albumin/Globulin Ratio (1.60-3.17) g/dL 06/22/21 06/23/21 06/23/21 Range/Units 23:00 05:45 05:45 WBC 11.61 H (3.8-10.6) k/uL RBC 3.39 L (4.30-5.90) m/uL Hgb 8.7 L (13.0-17.5) gm/dL Hct 28.1 L (39.0-53.0) % MCH 25.7 L (27.0-32.0) pg MCHC 31.0 L (32.0-37.0) g/dL RDW 15.8 H (11.5-15.5) % Plt Count 130 L (150-450) k/uL Neutrophils # (Manual) (1.3-7.7) k/uL Myelocytes # (Manual) (0) k/uL ESR 53 H (0-15) mm/hr PT (9.0-12.0) sec INR (<1.2) D-Dimer (<0.60) mg/L FEU Sodium (137-145) mmol/L Potassium 3.1 L (3.5-5.1) mmol/L Creatinine (0.66-1.25) mg/dL BUN/Creatinine Ratio 21.67 H (12.00-20.00) Ratio Glucose (74-99) mg/dL Calcium 8.2 L (8.7-10.3) mg/dL Total Bilirubin 0.2 L (0.3-1.2) mg/dL ALT <8 L (10-49) U/L C-Reactive Protein (<1.0) mg/dL Total Protein 6.1 L (6.2-8.2) g/dL Albumin 2.80 L (3.5-5.0) g/dL Albumin/Globulin Ratio 0.85 L (1.60-3.17) g/dL Microbiology - Last 24 Hours (Table) 06/22/21 11:01 Blood Culture - Final Blood 06/22/21 22:16 Blood Culture - Final Blood H & H 06/22/21 06/23/21 Range/Units 22:16 05:45 Hgb 9.5 L 8.7 L (13.0-17.5) gm/dL Hct 28.6 L 28.1 L (39.0-53.0) % Coagulation 06/22/21 Range/Units 11:01 INR 1.6 H (<1.2) Result Diagrams: 06/23/21 05:45 06/23/21 05:45 - Diagnostic results Hip x-ray: report reviewed (X-rays of the left hip were reviewed along with report. Images demonstrate severe breakdown of both the acetabulum and femoral head on the left side. 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 Rocha Recommend urgent transfer to tertiary care facility for further medical/orthopedic management Patient will likely require a staged surgical process for this left hip With patient's history of IV drug abuse, he will likely require a lengthy hospital stay to eradicate infection and require multiple medical specialties Pain management/GI and DVT prophylaxis per primary medical service Please contact our service with any further questions regarding this patient Time with Patient: Less than 30
[2021-06-23] MEDS: HYDROmorphone 1 MG/ML 1 ML SYRINGE IVP PRN ×3 (13:37→22:10)
[2021-06-23] MEDS: VANCOMYCIN 1,250 MG in SODIUM CHLORIDE 0.9% 250 ML IVPB SCH ×2 (13:40→22:13)
--- NOTE | 2021-06-23 14:02 | P.PN ---
Subjective Progress Note Date: 06/23/21 Hospital course: Patient is a 31-year-old male with a past medical history polysubstance abuse, IVDA with heroin, and history of MRSA infective endocarditis. He presented on 06/23/21 with a chief complaint of left hip pain and chest pain. A chest x-ray was completed which was negative for acute cardiopulmonary process. CT PE was negative for pulmonary embolism. X-ray left hip concerning for chronic septic arthritis. Patient admitted under our services with consultation to orthopedic surgery and infectious disease. Echocardiogram completed showing a normal EF between 55 and 60% with severe tricuspid regurgitation, moderate pulmonary hypertension and findings consistent with endocarditis with moderate non-mobile vegetation attached to the posterior tricuspid valve leaflet. Order placed for consultation to cardiology at this time. Patient remains on IV antibiotic vancomycin pending further recommendations from infectious disease. Physical examination: Patient seen and fully evaluated at the bedside. He reports uncontrolled pain to left hip, states resolution of previously reported chest pain. Orders place for Dilaudid for pain management at this time. Echocardiogram also resulting revealing moderate nonmobile bile vegetation attached to the posterior tricuspid valve leaflet consistent with endocarditis. Consult placed cardiology. Infectious disease following, appreciate further recommendations. At this time we will continue IV antibiotics with vancomycin. Vital signs reviewed and stable. General: Nontoxic, no distress and appears stated age. Derm: Skin warm and dry, normal coloration for ethnicity. Head: Atraumatic, normocephalic and symmetric. Eyes: EOMs intact, no lid lag, and anicteric sclera Mouth: no lip lesions, mucus membranes moist Cardiovascular: regular rate and rhythm with normal S1S2, no murmur, positive posterior tibial pulses bilaterally, and cap refill < 2 seconds. Lungs: Respirations even, regular, and unlabored on room air. Lungs CTA bilaterally, no rhonchi, no rales, no wheezing, and no accessory muscle usage. Abdominal: soft, nontender to palpation, no guarding, no appreciable organomegaly Ext: ROM intact. No gross muscle atrophy, no edema, no contractures Neuro: Speech clear, face symmetrical and CN II-XII grossly intact with no noted focal neuro deficits Psych: Alert and oriented to person, place, time, and situation. Appropriate and pleasant affect. Assessment and Plan of Care: Septic arthritis of left hip -X-ray left hip concerning for chronic septic arthritis. -Blood cultures pending -Consult placed to orthopedic surgery, appreciate recommendations -Consult placed to infectious disease -Symptomatic care and pain management. -Continue IV antibiotic vancomycin pending further recommendations from infectious disease. Endocarditis -Echocardiogram completed showing a normal EF between 55 and 60% with severe tricuspid regurgitation, moderate pulmonary hypertension and findings consistent with endocarditis with moderate non-mobile vegetation attached to the posterior tricuspid valve leaflet. -Order placed for consultation to cardiology at this time, appreciate further recommendations. -Infectious disease consulted, appreciate further recommendations. -Providing coverage for MRSA with IV antibiotics: Vancomycin pending further recommendations from infectious disease. -Telemetry monitoring. Polysubstance abuse with IVDA with heroin -Patient to continue to receive encouragement and education about the benefits of cessation of drugs, especially IVDA and the risks he faces with continued use up to and including . Bicytopenia Suspected secondary to polysubstance abuse, currently at baseline. We will continue to monitor with repeat a.m. labs. Hypokalemia Replaced. We will continue to monitor with repeat a.m. labs. CODE STATUS: Full code DVT prophylaxis: Heparin Discussed with: Patient and RN Anticipated discharge date: Clinical course to determine Anticipated discharge place: Home vs SNF for IV antibiotics A total of 45 minutes was spent on the care of this complex patient more than 50% of the time was spent in counseling and care coordination. Objective - Vital Signs Vital signs: Vital Signs Temp 98.0 F 06/23/21 07:00 Pulse 86 06/23/21 07:00 Resp 16 06/23/21 07:00 BP 120/71 06/23/21 07:00 Pulse Ox 99 06/23/21 07:00 Intake & Output 06/22/21 06/23/21 06/23/21 18:59 06:59 18:59 Intake Total 250 Output Total 600 300 Balance -600 -50 Weight 63.503 kg Intake: IV 250 Vancomycin 1,250 mg In 250 Sodium Chloride 0.9% 250 ml @ 125 mls/hr IVPB Q8H [facility] Rx#:[id number] Output: Urine 600 300 Other: # Voids 1 - Labs CBC & Chem 7: 06/23/21 05:45 06/23/21 05:45 Labs: Abnormal Lab Results - Last 24 Hours (Table) 06/22/21 06/22/21 06/22/21 Range/Units 11:01 22:16 22:16 WBC 12.5 H (3.8-10.6) k/uL RBC 3.56 L (4.30-5.90) m/uL Hgb 9.5 L (13.0-17.5) gm/dL Hct 28.6 L (39.0-53.0) % RDW 16.4 H (11.5-15.5) % Plt Count 105 L (150-450) k/uL Neutrophils # (Manual) 8.20 H (1.3-7.7) k/uL Myelocytes # (Manual) 0.13 H (0) k/uL ESR (0-15) mm/hr PT 15.9 H (9.0-12.0) sec INR 1.6 H (<1.2) D-Dimer 4.28 H (<0.60) mg/L FEU Sodium 134 L (137-145) mmol/L Potassium 3.1 L (3.5-5.1) mmol/L Creatinine 0.58 L (0.66-1.25) mg/dL Glucose 122 H (74-99) mg/dL C-Reactive Protein 15.4 H (<1.0) mg/dL Albumin 3.0 L (3.5-5.0) g/dL 06/22/21 Range/Units 23:00 WBC (3.8-10.6) k/uL RBC (4.30-5.90) m/uL Hgb (13.0-17.5) gm/dL Hct (39.0-53.0) % RDW (11.5-15.5) % Plt Count (150-450) k/uL Neutrophils # (Manual) (1.3-7.7) k/uL Myelocytes # (Manual) (0) k/uL ESR 53 H (0-15) mm/hr PT (9.0-12.0) sec INR (<1.2) D-Dimer (<0.60) mg/L FEU Sodium (137-145) mmol/L Potassium (3.5-5.1) mmol/L Creatinine (0.66-1.25) mg/dL Glucose (74-99) mg/dL C-Reactive Protein (<1.0) mg/dL Albumin (3.5-5.0) g/dL
--- NOTE | 2021-06-23 23:36 | P.CONS ---
History of Present Illness - Reason for Consult Consult date: 06/23/21 endocarditis , septic arthritis Requesting physician: Alvina Baum - Chief Complaint left hip pain x days - History of Present Illness History of present illness : Patient is a 31 male with a past medical he significant for IV drug use in this patient who did have a history of tricuspid and mitral valve endocarditis and also left hip septic arthritis patient was admitted at this facility in March 2021, patient was subsequently transferred to [facility] to be evaluated by orthopedic surgery and consideration for left hip surgery for the septic arthritis patient was evaluated at this facility and the patient did have a BRET which did shows vegetation in the tricuspid and mitral valve which has increased on the previous imaging CT surgery recommended no surgical intervention, no intervention was done to his left hip area patient refused to go to subacute rehab ID services at their facility discharge the patient home on a 6-week course of oral Bactrim DS 2 tablets twice a day patient now presenting to [facility] ER last night for evaluation of left hip pain and decreased mobility patient describing the pain to be more of a sharp in nature intensity is almost 7-year-old friend and radiation to the left leg and has been complaining of difficulty moving his left leg and walking around patient did admit to IV drug use with the last use a bout 8 days ago with October the patient was evaluated by the ER physician on arrival to the ER patient was afebrile patient did have a fever of 12.5 with a left shift kidney function was normal liver enzymes were normal blood culture has been obtained which are now showing Streptococcus pyogenes patient has been treated with the vancomycin infectious disease was consulted for further management of antibiotic therapy Review of system: Positive point has been mentioned in HPI rest of the systems are negative Past medical history : Reviewed, documented below Past surgical history : Reviewed, documented below Social history: Reviewed, documented below Medications: Reviewed, as documented below GENERAL DESCRIPTION: Middle-aged male lying in bed, no distress. No tachypnea or accessory muscle of respiration use. HEENT: Shows Pallor , no scleral icterus. Oral mucous membrane is dry. NECK: Trachea central, no thyromegaly. LUNGS: Unlabored breathing. Clear to auscultation anteriorly. No wheeze or crackle. HEART: S1, S2, regular rate and rhythm. ABDOMEN: Soft, no tenderness , guarding or rigidity EXTREMITIES: No edema of feet. SKIN: No rash, no masses palpable. NEUROLOGICAL: The patient is awake, alert, oriented x3, mood and affect normal. 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 3-we will not be able to cure this infection without extensive local washout followed by prolonged IV antibiotic therapy we will follow on clinical condition and cultures to further adjust medication if needed Thank you for this consultation we will follow the patient along with you Past Medical History Additional Past Medical History / Comment(s): Infected cardiac valve per pt a couple months ago-states he never followed up, underwent IV antibiotics at that time but did not complete the course of antibiotics per the patient. History of L hip osteomylitis/hip joint surgically removed. endocarditis History of Any Multi-Drug Resistant Organisms: MRSA Year Discovered:: 03/10/21 MDRO Source:: Blood Past Surgical History: Orthopedic Surgery Additional Past Surgical History / Comment(s): 2 hip surgeries and eventual removal of hip joint. Past Anesthesia/Blood Transfusion Reactions: No Reported Reaction Past Psychological History: No Psychological Hx Reported Smoking Status: Current every day smoker Past Alcohol Use History: None Reported Past Drug Use History: Heroin, Methamphetamine - Past Family History Father Additional Family Medical History / Comment(s): Father lives in [place] and had an injury and is disabled. Mother Family Medical History: Vascular Disorder Additional Family Medical History / Comment(s): Mother of a brain aneurysm. Sister(s) Family Medical History: No Reported History Additional Family Medical History / Comment(s): pt lives with his sister. Medications and Allergies Home Medications Medication Instructions Recorded Confirmed Type No Known Home Medications 03/06/21 06/22/21 History Allergies Allergy/AdvReac Type Severity Reaction Status Date / Time tramadol [From Ultram] AdvReac Mild Unknown Verified 06/22/21 22:40 Physical Exam Vitals: Vital Signs Temp Pulse Pulse Pulse Resp BP BP 06/23/21 20:05 80 78 16 06/23/21 20:00 80 78 16 06/23/21 15:58 98.4 F 78 16 120/69 06/23/21 14:00 16 06/23/21 08:00 16 06/23/21 07:00 98.0 F 86 16 120/71 06/23/21 03:39 97.7 F 78 18 111/72 06/23/21 03:00 86 18 110/72 06/23/21 00:43 100 18 98/61 06/22/21 23:43 94 18 117/71 Pulse Ox 06/23/21 20:05 06/23/21 20:00 06/23/21 15:58 100 06/23/21 14:00 06/23/21 08:00 06/23/21 07:00 99 06/23/21 03:39 100 06/23/21 03:00 97 06/23/21 00:43 97 06/22/21 23:43 98 Intake and Output 06/23/21 06/23/21 06/24/21 14:59 22:59 06:59 Intake Total 700 480 Output Total 450 150 Balance 250 330 Intake: IV 700 Sodium Chloride 0.9% 1, 450 000 ml @ 75 mls/hr IV . [id number] [facility] Rx#:[id number] Vancomycin 1,250 mg In 250 Sodium Chloride 0.9% 250 ml @ 125 mls/hr IVPB Q8H [facility] Rx#:[id number] Oral 480 Output: Urine 450 150 Other: Voiding Method Urinal Urinal # Voids 1 # Bowel Movements 1 1 Results CBC & Chem 7: 06/23/21 05:45 06/23/21 05:45 Labs: Abnormal Lab Results - Last 24 Hours (Table) 06/22/21 06/23/21 06/23/21 Range/Units 23:00 05:45 05:45 WBC 11.61 H (4.50-10.00) X 10*3/uL RBC 3.39 L (4.40-5.60) X 10*6/uL Hgb 8.7 L (13.0-17.0) g/dL Hct 28.1 L (39.6-50.0) % MCH 25.7 L (27.0-32.0) pg MCHC 31.0 L (32.0-37.0) g/dL RDW 15.8 H (11.5-14.5) % Plt Count 130 L (140-440) X 10*3/uL ESR 53 H (0-15) mm/hr Potassium 3.1 L (3.5-5.5) mmol/L BUN/Creatinine Ratio 21.67 H (12.00-20.00) Ratio Calcium 8.2 L (8.7-10.3) mg/dL Total Bilirubin 0.2 L (0.3-1.2) mg/dL ALT <8 L (10-49) U/L Total Protein 6.1 L (6.2-8.2) g/dL Albumin 2.80 L (3.80-4.90) g/dL Albumin/Globulin Ratio 0.85 L (1.60-3.17) g/dL Microbiology - Last 24 Hours (Table) 06/22/21 22:16 Blood Culture Gram Stain - Preliminary Blood Blood Culture - Preliminary Streptococcus species 06/22/21 11:01 Blood Culture Gram Stain - Preliminary Blood 06/22/21 11:01 Blood Culture - Final Blood 06/22/21 22:16 Blood Culture - Final Blood
[2021-06-24] MEDS ORDERED: METOPROLOL TARTRATE 50 MG TAB PO STA (01:06)
[2021-06-24] MEDS: ACETAMINOPHEN TAB 325 MG TAB PO PRN (01:39)
--- NOTE | 2021-06-24 03:08 | XR ---
EXAMINATION TYPE: XR chest 1V portable DATE OF EXAM: 06/24/2021 COMPARISON: 06/22/2021 HISTORY: Chest pain TECHNIQUE: Single view FINDINGS: Heart is top normal in size. There is no heart failure. There is some mild infiltrate and a telectasis at the lung bases. There are no hilar masses. Mediastinum is normal. There are chest leads . Bony thorax appears intact. IMPRESSION: There is some new mild infiltrate and atelectasis in both lower lobes compared to recent exam.
[2021-06-24] MEDS: SODIUM CHLORIDE 0.9% 1,000 ML IV SCH ×2 (03:45→07:29)
[2021-06-24] MEDS: HYDROmorphone 1 MG/ML 1 ML SYRINGE IVP PRN ×5 (04:00→20:22)
[2021-06-24] MEDS ORDERED: VANCOMYCIN TROUGH DUE 1 EACH MISC MISCELLANE ONE (05:00)
[2021-06-24 07:28] VITALS: RESP 16
[2021-06-24] MEDS: ENOXAPARIN 40 MG/0.4 ML SYRINGE SQ SCH (08:36)
[2021-06-24] MEDS: FAMOTIDINE 20 MG TAB PO SCH (08:37)
[2021-06-24 09:39] LABS: African American GFR (CKD) >90 (>60 ml/min/1.73 sqM); Anion Gap 8 mmol/L; Blood Urea Nitrogen 10 mg/dL (9-20); Calcium 7.9 mg/dL (8.4-10.2); Carbon Dioxide 17 mmol/L (22-30); Chloride 106 mmol/L (98-107); Glucose 131 mg/dL (74-99); Magnesium 1.7 mg/dL (1.6-2.3); Non-African American GFR(CKD) >90 (>60 ml/min/1.73 sqM); Potassium 4.1 mmol/L (3.5-5.1); Sodium 131 mmol/L (137-145)
[2021-06-24 10:26] LABS: Anisocytosis Slight; HCT 26.9 % (39.0-53.0); HGB 8.7 gm/dL (13.0-17.5); Hypochromasia Marked; MCH 26.9 pg (25.0-35.0); MCHC 32.3 g/dL (31.0-37.0); MCV 83.5 fL (80.0-100.0); Mean Platelet Volume 9.2; Platelet Count 142 k/uL (150-450); Poikilocytosis Slight; RBC 3.22 m/uL (4.30-5.90); RDW 16.3 % (11.5-15.5); WBC 10.5 k/uL (3.8-10.6)
--- NOTE | 2021-06-24 11:39 | P.CRDCN ---
History of Present Illness History of present illness: HISTORY OF PRESENTING ILLNESS Patient is a 31 year old male with a past medical history ofchronic heroin use, recent endocarditis, left hip osteomyelitis septic arthritis and chronic nicotine dependence. 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 We have been asked to see in consultation for endocarditis and moderate nonmobile vegetation attached to posterior tricuspid valve. Patient presents to [facility] emergency department with complaints of left hip pain, worsening with movement and walking and decreased mobility. In December 2020 he was treated for infective endocarditis at [facility] with IV antibiotics. Apparently after discharge he continued to use IV heroin and presented to the hospital with symptoms of chest discomfort. He underwent echocardiogram revealing preserved LV systolic function with ejection fraction greater than 55% with vegetation noted on the tricuspid valve as well as possible vegetation on the mitral valve. Blood cultures are positive for Streptococcus and Staphylococcus aureus. Patient was admitted to [facility] in March 2021, patient was subsequently transferred to [facility] to be evaluated by orthopedic surgery and consideration for left hip surgery for the septic arthritis patient was evaluated at this facility and the patient did have a BRET at [facility] which did shows vegetation in the tricuspid and mitral valve which has increased on the previous imaging. CT surgery here recommended no surgical intervention, no intervention was done, therefore no BRET was performed at [facility]. No intervention to his left hip area patient refused to go to subacute rehab ID services at [facility] and he was discharged home on a 6-week course of oral Bactrim DS 2 tablets twice a day. He states he was at [facility] for a total of 15 days. He states he was taking this medication as prescribed. He has been home for about 2 months. He currently continues to use IV heroin. Blood culture has been obtained which are now showing Streptococcus pyogenes. DIAGNOSTICS EKG sinus rhythm, heart rate 90, nonspecific STT wave abnormalities. Chest xray- some new mild infiltrate and atelectasis in both lower lobes. CTA- no evidence of pulmonary embolism. Improvement in the nodule infiltrates significantly compared to old exam. Splenomegaly similar to old exam Hip x-ray revealed some erosion of the articular surface of theacetabulum and femoral head deformity Echocardiogram revealed an EF 55-60%, RV is mild to moderately enlarged, RA is mildly enlarged, mild mitral regurgitation, cannot exclude but states that on the PMD L. Severe tricuspid regurgitation. Moderate pulmonary hypertension with an RVSP of 43 mmHg, moderate, nonmobile vegetation test the posterior tricuspid valve leaflet Laboratory reviewed, WBC 11.6, hemoglobin 8.7, platelets 1:30, sodium 139, potassium 3.1, BUN 13, serum creatinine 0.6, magnesium 1.9, troponin negative 4, proBNP 233 He takes no daily cardiac medications. Telemetry reviewed patient in sinus mechanism, heart rate 70s to 80s, occasionally overnight take go up into the 130s, low 140s- appears to be in sinus tachycardia REVIEW OF SYSTEMS At the time of my exam: CONSTITUTIONAL: Denies fever or chills. CARDIOVASCULAR: Denies chest pain and shortness of breath. Denies orthopnea, PND or palpitations. RESPIRATORY: Denies cough. GASTROINTESTINAL: Denies abdominal pain, diarrhea, constipation, nausea or vomiting. MUSCULOSKELETAL: +left hip pain NEUROLOGIC: Denies numbness, tingling, headacbe or weakness. ENDOCRINE: Denies fatigue, weight change, polydipsia or polyurina. GENITOURINARY: Denies burning, hematuria or urgency with micturation. HEMATOLOGIC: Denies history of anemia or bleeding. PHYSICAL EXAMINATION Blood pressure 101/67 heart rate 73 afebrile and maintaining oxygen saturation 90% on room air CONSTITUTIONAL: No apparent distress. HEENT: Head is normocephalic. Pupils are equal, round. Sclerae anicteric. Mucous membranes of the mouth are moist. No JVD. No carotid bruit. CHEST EXAMINATION: Lungs are clear to auscultation. No chest wall tenderness is noted on palpation or with deep breathing. HEART EXAMINATION: Regular rate and rhythm. Tachycardic. S1, S2 heard. Murmur of TR and the lower sternal border, no gallops or rub. ABDOMEN: Soft, nontender. Positive bowel sounds. EXTREMITIES: 2+ peripheral pulses, no lower extremity edema and no calf tenderness. Left hip pain with movement NEUROLOGIC EXAMINATION: Patient is awake, alert and oriented x3. ASSESSMENT Infective endocarditis Bacteremia Septic arthritis of Left hip Thrombocytopenia Febrile illness Bacteremia History of IV heroin use Hypokalemia Chronic nicotine dependence PLAN -Ortho following for septic arthritis, recommending transfer to tertiary care facility -Infectious disease following- patient currently on cefazolin -Replace potassium -Repeat blood cultures -From a cardiology perspective, no further cardiac workup at this time. Nurse Practitioner note has been reviewed, I agree with a documented findings and plan of care. Patient was seen and examined. Past Medical History Additional Past Medical History / Comment(s): Infected cardiac valve per pt a couple months ago-states he never followed up, underwent IV antibiotics at that time but did not complete the course of antibiotics per the patient. 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 Past Anesthesia/Blood Transfusion Reactions: No Reported Reaction Past Psychological History: No Psychological Hx Reported Smoking Status: Current every day smoker Past Alcohol Use History: None Reported Past Drug Use History: Heroin, Methamphetamine - Past Family History Father Additional Family Medical History / Comment(s): Father lives in [place] and had an injury and is disabled. Mother Family Medical History: Vascular Disorder Additional Family Medical History / Comment(s): Mother of a brain aneurysm. Sister(s) Family Medical History: No Reported History Additional Family Medical History / Comment(s): pt lives with his sister. Medications and Allergies Home Medications Medication Instructions Recorded Confirmed Type No Known Home Medications 03/06/21 06/22/21 History Allergies Allergy/AdvReac Type Severity Reaction Status Date / Time tramadol [From Ultram] AdvReac Mild Unknown Verified 06/22/21 22:40 Physical Exam Vitals: Vital Signs Temp Pulse Pulse Resp BP Pulse Ox 06/24/21 00:51 100.1 F H 127 H 18 123/76 96 06/23/21 20:54 98.4 F 88 19 118/80 100 06/23/21 20:05 80 78 16 06/23/21 20:00 80 78 16 06/23/21 15:58 98.4 F 78 16 120/69 100 06/23/21 14:00 16 06/23/21 08:00 16 Intake and Output 06/23/21 06/24/21 06/24/21 22:59 06:59 14:59 Intake Total 480 Output Total 150 550 Balance 330 -550 Intake: Oral 480 Output: Urine 150 550 Other: Voiding Method Urinal # Voids 1 # Bowel Movements 1 Results 06/24/21 02:57 06/24/21 02:57 Cardiac Enzymes 06/23/21 06/24/21 Range/Units 05:45 02:57 AST 15 (14-35) U/L Troponin I <0.012 (0.000-0.034) ng/mL CBC 06/23/21 Range/Units 05:45 WBC 11.61 H (4.50-10.00) X 10*3/uL RBC 3.39 L (4.40-5.60) X 10*6/uL Hgb 8.7 L (13.0-17.0) g/dL Hct 28.1 L (39.6-50.0) % Plt Count 130 L (140-440) X 10*3/uL Comprehensive Metabolic Panel 06/23/21 Range/Units 05:45 Sodium 139 (135-145) mmol/L Potassium 3.1 L (3.5-5.5) mmol/L Chloride 103 (96-109) mmol/L Carbon Dioxide 28.3 (21.6-31.8) mmol/L BUN 13.0 (9.0-27.0) mg/dL Creatinine 0.6 (0.6-1.5) mg/dL Glucose 106 (70-110) mg/dL Calcium 8.2 L (8.7-10.3) mg/dL AST 15 (14-35) U/L ALT <8 L (10-49) U/L Alkaline Phosphatase 115 (41-126) U/L Total Protein 6.1 L (6.2-8.2) g/dL Albumin 2.80 L (3.80-4.90) g/dL Current Medications Generic Name Dose Route Start Last Admin Trade Name Freq PRN Reason Stop Dose Admin Acetaminophen 650 mg 06/23/21 00:59 06/24/21 01:39 Acetaminophen Tab 325 Mg Tab PO 650 mg Q6HR PRN Administration Mild Pain or Fever > 100.5 Al Hydroxide/Mg Hydroxide 15 ml 06/23/21 00:59 Mag Hydrox/Al Hydrox/Simeth 30 Ml Cup PO Q6HR PRN Indigestion Enoxaparin Sodium 40 mg 06/23/21 09:00 06/23/21 11:00 Enoxaparin 40 Mg/0.4 Ml Syringe SQ 40 mg DAILY GORDON Administration Famotidine 20 mg 06/23/21 09:00 06/23/21 22:12 Famotidine 20 Mg Tab PO 20 mg BID GORDON Administration Hydromorphone HCl 1 mg 06/23/21 13:17 06/24/21 04:00 Hydromorphone 1 Mg/Ml 1 Ml Syringe IVP 1 mg Q4HR PRN Administration Pain Sodium Chloride 1,000 mls @ 75 mls/hr 06/23/21 01:00 06/24/21 03:45 Saline 0.9% IV Not Given .[id number] GORDON Naloxone HCl 0.2 mg 06/23/21 00:59 Naloxone 0.4 Mg/Ml 1 Ml Vial IV Q2M PRN Opioid Reversal Temazepam 15 mg 06/23/21 00:59 06/23/21 22:12 Temazepam 15 Mg Cap PO 15 mg HS PRN Administration Insomnia Intake and Output 06/23/21 06/24/21 06/24/21 22:59 06:59 14:59 Intake Total 480 Output Total 150 550 Balance 330 -550 Intake: Oral 480 Output: Urine 150 550 Other: Voiding Method Urinal # Voids 1 # Bowel Movements 1 06/23/21 05:45 06/23/21 05:45
[2021-06-24 12:43] LABS: Lymphocytes # (M) 1.16 k/uL (1.0-4.8); Monocytes # (M) 1.37 k/uL (0-1.0); Neutrophils # (M) 7.98 k/uL (1.3-7.7); Neutrophils % (M) 76 %; Nucleated Red Blood Cells 0 /100 WBC (0-0); Total Cells Counted 100
--- NOTE | 2021-06-24 15:49 | P.PN ---
<Wolf Estrada - Last Filed: 06/24/21 15:38> Subjective Progress Note Date: 06/24/21 Hospital course: Patient is a 31-year-old male with a past medical history polysubstance abuse, IVDA with heroin, and history of MRSA infective endocarditis. He presented on 06/23/21 with a chief complaint of left hip pain and chest pain. A chest x-ray was completed which was negative for acute cardiopulmonary process. CT PE was negative for pulmonary embolism. X-ray left hip concerning for chronic septic arthritis. Patient admitted under our services with consultation to orthopedic surgery and infectious disease. Echocardiogram completed showing a normal EF between 55 and 60% with severe tricuspid regurgitation, moderate pulmonary hypertension and findings consistent with endocarditis with moderate non-mobile vegetation attached to the posterior tricuspid valve leaflet. Order placed for consultation to cardiology at this time. Blood culture positive for Streptococcus. Infectious disease changed antibiotics from vancomycin to cefazolin. Cardiology evaluated patient and clearing patient from cardiac perspective at this time stating no further cardiac workup. Orthopedic specialists recommending transfer to tertiary care facility for treatment of septic arthritis. Attempts being made for transfer to [facility], awaiting callback from physician at this time. Physical examination: Patient seen and fully evaluated at the bedside. He reports that he continues to have pain to his left hip in which she reports is relieved with pain medication currently prescribed. Patient denies any further episodes of chest pain and denies any other complaints including headache, lightheadedness, dizziness, palpitations, shortness of breath, abdominal pain, nausea, vomiting, or diarrhea. Patient did have an elevated d-dimer overnight however CT PE was completed on 06/22/21 negative for pulmonary embolism and patient currently denie s any complaints of chest pain, palpitations, shortness of breath, dizziness, or experiencing any numbness/tingling/weakness in his extremities. Blood cultures positive for Streptococcus, infectious disease change antibiotics to cefazolin. Vital signs reviewed and stable. General: Nontoxic, no distress and appears stated age. Derm: Skin warm and dry, normal coloration for ethnicity. Head: Atraumatic, normocephalic and symmetric. Eyes: EOMs intact, no lid lag, and anicteric sclera Mouth: no lip lesions, mucus membranes moist Cardiovascular: regular rate and rhythm with normal S1S2, no murmur, positive posterior tibial pulses bilaterally, and cap refill < 2 seconds. Lungs: Respirations even, regular, and unlabored on room air. Lungs CTA bilaterally, no rhonchi, no rales, no wheezing, and no accessory muscle usage. Abdominal: soft, nontender to palpation, no guarding, no appreciable organomegaly Ext: ROM intact. No gross muscle atrophy, no edema, no contractures Neuro: Speech clear, face symmetrical and CN II-XII grossly intact with no noted focal neuro deficits Psych: Alert and oriented to person, place, time, and situation. Appropriate and pleasant affect. Assessment and Plan of Care: Septic arthritis of left hip Bacteremia with Streptococcus -X-ray left hip concerning for chronic septic arthritis. -Blood cultures positive for Streptococcus -Consult placed to orthopedic surgery, appreciate recommendations -Consult placed to infectious disease -Symptomatic care and pain management. -ID changed antibiotics to cefazolin Endocarditis -Echocardiogram completed showing a normal EF between 55 and 60% with severe tricuspid regurgitation, moderate pulmonary hypertension and findings consistent with endocarditis with moderate non-mobile vegetation attached to the posterior tricuspid valve leaflet. -Order placed for consultation to cardiology at this time, appreciate further recommendations. -Infectious disease consulted, appreciate further recommendations. -ID changed antibiotics over to cefazolin -Telemetry monitoring. Hypomagnesemia -Replaced -We will continue to monitor with repeat a.m. labs. Polysubstance abuse with IVDA with heroin -Patient to continue to receive encouragement and education about the benefits of cessation of drugs, especially IVDA and the risks he faces with continued use up to and including . Bicytopenia Suspected secondary to polysubstance abuse, currently at baseline. We will continue to monitor with repeat a.m. labs. Hypokalemia, resolved We will continue to monitor with repeat a.m. labs. CODE STATUS: Full code DVT prophylaxis: Heparin Discussed with: Patient and RN Anticipated discharge date: Clinical course to determine Anticipated discharge place: Transfer to tertiary facility, attempts being made to transfer patient to [facility] at this time. A total of 45 minutes was spent on the care of this complex patient more than 50% of the time was spent in counseling and care coordination. Objective - Vital Signs Vital signs: Vital Signs Temp 98 F 06/24/21 07:28 Pulse 73 06/24/21 07:28 Resp 16 06/24/21 07:28 BP 101/67 06/24/21 07:28 Pulse Ox 99 06/24/21 07:28 Intake & Output 06/23/21 06/24/21 06/24/21 18:59 06:59 18:59 Intake Total 700 480 Output Total 026 127 0693 Balance 250 -220 -1200 Intake: IV 700 Sodium Chloride 0.9% 1, 450 000 ml @ 75 mls/hr IV . [id number] [facility] Rx#:[id number] Vancomycin 1,250 mg In 250 Sodium Chloride 0.9% 250 ml @ 125 mls/hr IVPB Q8H [facility] Rx#:[id number] Oral 480 Output: Urine 060 [id number] Other: Voiding Method Urinal Urinal # Voids 1 # Bowel Movements 1 1 - Labs CBC & Chem 7: 06/24/21 02:57 06/24/21 02:57 Labs: Abnormal Lab Results - Last 24 Hours (Table) 06/23/21 06/24/21 06/24/21 Range/Units 05:45 02:57 02:57 D-Dimer 3.67 H (<0.60) mg/L FEU Potassium 3.1 L (3.5-5.5) mmol/L BUN/Creatinine Ratio 21.67 H (12.00-20.00) Ratio Calcium 8.2 L (8.7-10.3) mg/dL Total Bilirubin 0.2 L (0.3-1.2) mg/dL ALT <8 L (10-49) U/L C-Reactive Protein 7.2 H (<1.0) mg/dL Total Protein 6.1 L (6.2-8.2) g/dL Albumin 2.80 L (3.80-4.90) g/dL Albumin/Globulin Ratio 0.85 L (1.60-3.17) g/dL Microbiology - Last 24 Hours (Table) 06/22/21 22:16 Blood Culture Gram Stain - Preliminary Blood Blood Culture - Preliminary Streptococcus species 06/22/21 11:01 Blood Culture Gram Stain - Preliminary Blood 06/22/21 11:01 Blood Culture - Final Blood 06/22/21 22:16 Blood Culture - Final Blood <Diane Cisneros - Last Filed: 06/24/21 19:48> Subjective Patient seen and examined independently. Patient was also seen by Wolf Estrada NP and case was discussed. I am in agreement with subjective, physical exam, as sessment and plan as written above and amended below. For physical exam thing they see discharge summary. Objective - Vital Signs Vital signs: Vital Signs Temp 98.7 F 06/24/21 18:51 Pulse 90 06/24/21 18:51 Resp 16 06/24/21 18:51 BP 113/78 06/24/21 18:51 Pulse Ox 98 06/24/21 18:51 Intake & Output 06/24/21 06/24/21 06/25/21 06:59 18:59 06:59 Intake Total 480 100 Output Total 700 1860 Balance -220 -1760 Intake: IV 100 ceFAZolin 2 gm In Sodium 100 Chloride 0.9% 50 ml @ 100 mls/hr IVPB Q8HR [facility] Rx# :[id number] Oral 480 Output: Urine 700 1860 Other: Voiding Method Urinal Urinal # Voids 1 3 # Bowel Movements 1 - Labs CBC & Chem 7: 06/24/21 02:57 06/24/21 02:57 Labs: Abnormal Lab Results - Last 24 Hours (Table) 06/24/21 06/24/21 06/24/21 Range/Units 02:57 02:57 02:57 RBC 3.22 L (4.30-5.90) m/uL Hgb 8.7 L (13.0-17.5) gm/dL Hct 26.9 L (39.0-53.0) % RDW 16.3 H (11.5-15.5) % Plt Count 142 L (150-450) k/uL Neutrophils # (Manual) 7.98 H (1.3-7.7) k/uL Monocytes # (Manual) 1.37 H (0-1.0) k/uL D-Dimer 3.67 H (<0.60) mg/L FEU Sodium (137-145) mmol/L Carbon Dioxide (22-30) mmol/L Creatinine (0.66-1.25) mg/dL Glucose (74-99) mg/dL Calcium (8.4-10.2) mg/dL C-Reactive Protein 7.2 H (<1.0) mg/dL 06/24/21 Range/Units 02:57 RBC (4.30-5.90) m/uL Hgb (13.0-17.5) gm/dL Hct (39.0-53.0) % RDW (11.5-15.5) % Plt Count (150-450) k/uL Neutrophils # (Manual) (1.3-7.7) k/uL Monocytes # (Manual) (0-1.0) k/uL D-Dimer (<0.60) mg/L FEU Sodium 131 L (137-145) mmol/L Carbon Dioxide 17 L (22-30) mmol/L Creatinine 0.62 L (0.66-1.25) mg/dL Glucose 131 H (74-99) mg/dL Calcium 7.9 L (8.4-10.2) mg/dL C-Reactive Protein (<1.0) mg/dL Microbiology - Last 24 Hours (Table) 06/22/21 11:01 Blood Culture Gram Stain - Preliminary Blood Blood Culture - Preliminary Alpha Hemolytic Streptococcus 06/22/21 22:16 Blood Culture Gram Stain - Preliminary Blood Blood Culture - Preliminary Alpha Hemolytic Streptococcus
[2021-06-24] MEDS: MAGNESIUM SULFATE-D5W PMX 1 GM in DEXTROSE/WATER 1 100ML.BAG IVPB SCH ×2 (16:57→18:10)
[2021-06-24 18:51] VITALS: BP 113/78; PULSE 90; TEMP 98.7
--- NOTE | 2021-06-24 19:00 | P.DS ---
<Wolf Estrada - Last Filed: 06/24/21 18:54> Providers Expected date of discharge: 06/24/21 Hospital Course: Discharge Diagnosis upon transfer to [facility]: Septic arthritis of left hip Bacteremia with Streptococcus Endocarditis Hypomagnesemia Polysubstance abuse with IVDA with heroin Bicytopenia Hypokalemia, resolved Hospital Course: Patient is a 31-year-old male with a past medical history polysubstance abuse, IVDA with heroin, and history of MRSA infective endocarditis. He presented on 06/23/21 with a chief complaint of left hip pain and chest pain. A chest x-ray was completed which was negative for acute cardiopulmonary process. CT PE was negative for pulmonary embolism. X-ray left hip concerning for chronic septic arthritis. Patient admitted under our services with consultation to orthopedic surgery and infectious disease. Echocardiogram completed showing a normal EF between 55 and 60% with severe tricuspid regurgitation, moderate pulmonary hypertension and findings consistent with endocarditis with moderate non-mobile vegetation attached to the posterior tricuspid valve leaflet. Order placed for consultation to cardiology at this time. Blood culture positive for Strep tococcus. Infectious disease changed antibiotics from vancomycin to cefazolin. Cardiology evaluated patient and clearing patient from cardiac perspective at this time stating no further cardiac workup to be completed. Orthopedic specialists recommending transfer to tertiary care facility for treatment of septic arthritis. Patient was accepted to [facility] by Dr. Martinez where he will receive further evaluation and continued treatment for his septic arthritis and endocarditis. Patient now has bed assignment and EMS to transport patient at this time. [facility]. Please see progress note completed earlier today to review a full detailed physical examination. A total of 45 minutes of time were spent preparing this complex discharge summary. Patient Condition at Discharge: Serious Plan - Discharge Summary Discharge Rx Participant: Yes New Discharge Prescriptions: No Action No Known Home Medications Discharge Medication List No Known Home Medications 03/06/21 [History] Follow up Appointment(s)/Referral(s): None,Stated [Primary Care Provider] - 1-2 days <Diane Cisneros - Last Filed: 06/24/21 19:37> Providers Date of admission: 06/23/21 17:18 Attending physician: Alvina Baum MD Consults: 06/23/21 03:01 Consult Physician Urgent Consulting Provider: Carlo Jose Consult Reason/Comments: infective endocarditis, septic arthritis Do you want consulting provider notified?: Yes 06/23/21 08:06 Consult Physician Routine Consulting Provider: Kelvin Lee Consult Reason/Comments: possible septic arthritis Do you want consulting provider notified?: Yes 06/23/21 13:51 Consult Physician ONCE Consulting Provider: Artis Holt Consult Reason/Comments: endocarditis moderate nonmobile vegetation attached to posterior tricuspid Do you want consulting provider notified?: Yes Primary care physician: Stated None Hospital Course: Patient seen and examined independently. Patient was also seen by Wolf Estrada NP and case was discussed. I am in agreement with discharge diagnosis, hospital course, and physical exam as written above and amended below. Discussed again the importance of no additional IV drug use with the patient. Discussed his need for transfer as orthopedic surgery here states he likely will need attention these procedure the septic arthritis of the left hip. Again reiterated to patient that every time he uses IV drugs he likely will get a recurrence of his bacteremia as well as possible septic arthritis and endocarditis. Case discussed with the transferring facility and Dr. Martinez General: Ill appearing, mild distress secondary to pain, appears at stated age Derm: warm, dry Head: atraumatic, normocephalic, symmetric Eyes: EOMI, no lid lag, anicteric sclera Mouth: no lip lesion, mucus membranes moist Cardiovascular: S1S2 reg, with diastolic murmur murmur, positive posterior tibial pulse bilateral, Lungs: Decreased breath sounds bilateral bilateral, no rhonchi, no rales , no accessory muscle use Abdominal: soft, nontender to palpation, no guarding, no appreciable organomegaly Ext: no gross muscle atrophy, no edema, no contractures Neuro: CN II-XI grossly intact, no focal neuro deficits Psych: Alert, oriented, appropriate affect
--- NOTE | 2021-06-24 20:22 | PN ---
PROGRESS NOTE DATE OF SERVICE: 06/24/2021 REASON FOR FOLLOWUP: Bacteremia interval. INTERVAL HISTORY: The patient is afebrile. The patient is still complaining of pain to the left shoulder. The patient denies having any chest pain. No shortness of breath. No abdominal pain no diarrhea. PHYSICAL EXAMINATION: Blood pressure 113/69, pulse of 90, temperature 98, he is 98% on room air. General description is a middle-aged male lying in bed in no distress. Respiratory system unlabored breathing. Clear to auscultation anteriorly. Heart S1, S2. Regular rate. Abdomen soft no tenderness. LABS: Hemoglobin is 8.1, white count 10.5, BUN of 10, creatinine 0.62. Blood culture now showing a Streptococcus. DIAGNOSTIC IMPRESSION: Patient with streptococcal bacteremia in this patient with a history of IV drug use and history of endocarditis and septic arthritis, however, previously has grown MRSA at this time showing a strep. Could be related to his recurrent ongoing drug use. The patient is on antibiotic cefazolin with vegetation seen on the surface echo and concern for septic arthritis. Possible transfer to tertiary care. Continue cefazolin. Prognosis is guarded. MMODL / IJN: [id number] /
--- NOTE | 2021-06-25 10:00 | CDI ---
Documentation Clarification Form Date: 06/25/21 From: Julia Brambila Admit Date: 06/23/2021 05:18:00 PM Patient Name: Bradley Holm Visit Number: [id number] Discharge Date: 06/24/2021 08:27:00 PM ATTENTION: The Clinical Documentation Specialists (CDI) and [facility] Coding Staff appreciate your assistance in clarifying documentation. Please respond to the clarification below the line at the bottom and electronically sign. The CDI & [facility] Coding staff will review the response and follow-up if needed. Please note: Queries are made part of the Legal Health Record. If you have any questions, please contact the author of this message via ITS. Dr. Diane Cisneros, There is documentation of bacteremia in the 3 consults, all PNs and DS. Bacteremia is considered a lab finding. Additional clarification regarding bacteremia is requested. 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 06/24 PN-Patient with streptococcal bacteremia in this patient with a history of IV drug use and history of endocarditis and septic arthritis, however, previously has grown MRSA at this time showing a strep. Could be related to his recurrent ongoing drug use. The patient is on antibiotic cefazolin with vegetation seen on the surface echo and concern for septic arthritis. Possible transfer to tertiary care. Continue cefazolin. Treatment: IV Vancomycin, Please provide additional clarification regarding the etiology/cause and/or clinical significance of the bacteremia: [ ] Bacteremia is related to sepsis [ ] Bacteremia is due to infectious process, please specify: [ ] Bacteremia is not clinically significant [ ] Other, please specify [ ] Unable to determine Bactermia resulting from IV drug use and the bacteremia lead to the endocarditis and septic arthritis. FRANKD
== END 2021-06-24 20:27 | disposition short-term general hospital (02) | DRG 548 ==
LOC: EC 21:41 → 6NMEDSUR 06-23 01:01 → OBSVTOIN 06-23 17:18
PROVIDERS: ADMIT Internal Medicine; ATTEND Internal Medicine
DX: M00.9 Pyogenic arthritis, unspecified (principal); I33.0 Acute and subacute infective endocarditis; R78.81 Bacteremia; M86.68 Other chronic osteomyelitis, other site; M87.9 Osteonecrosis, unspecified; J98.11 Atelectasis; D69.6 Thrombocytopenia, unspecified; I27.20 Pulmonary hypertension, unspecified; F11.10 Opioid abuse, uncomplicated; F19.10 Other psychoactive substance abuse, uncomplicated; Z20.822 Contact with and (suspected) exposure to COVID-19; B95.4 Other streptococcus as the cause of diseases classified elsewhere; E87.6 Hypokalemia; M89.752 Major osseous defect, left pelvic region and thigh; I08.1 Rheumatic disorders of both mitral and tricuspid valves; E83.42 Hypomagnesemia; M25.512 Pain in left shoulder; R16.1 Splenomegaly, not elsewhere classified; G89.29 Other chronic pain; F17.210 Nicotine dependence, cigarettes, uncomplicated; Z71.6 Tobacco abuse counseling; Z86.14 Personal history of Methicillin resistant Staphylococcus aureus infection; Z87.39 Personal history of other diseases of the musculoskeletal system and connective tissue; Z86.79 Personal history of other diseases of the circulatory system; Z98.890 Other specified postprocedural states; Z88.5 Allergy status to narcotic agent; Z82.49 Family history of ischemic heart disease and other diseases of the circulatory system; Z82.8 Family history of other disabilities and chronic diseases leading to disablement, not elsewhere classified
CPT/HCPCS: 36415; 71045; 71046; 71275; 73502; 80048; 80053; 83605; 83735; 83880; 84484; 85025; 85027; 85379; 85610; 85652; 85730; 86140; 87040; 87077; 87186; 87635; 93005; 93306; 96374; 99285

== ENCOUNTER 2021-07-26 04:45 | Emergency (ER) | payer MEDICARE, OTHER ==
[2021-07-26 04:50] VITALS: BP 106/73; TEMP 98.9
[2021-07-26] MEDS ORDERED: ACET/COD 300 MG/30 MG STARTER PACK 6 TAB BTL PO STA (05:42)
[2021-07-26] MEDS ORDERED: AMOXIC-POT CLAV 875MG STARTER PACK 2 TAB BTL PO STA (05:42)
[2021-07-26] MEDS ORDERED: MORPHINE SULFATE 4 MG/ML SYRINGE IM STA (05:42)
[2021-07-26] MEDS ORDERED: AMOXIC-POT CLAV 875-125MG 1 EACH TAB PO STA (05:42)
--- NOTE | 2021-07-26 05:43 | ED ---
Recheck HPI - General Chief Complaint: Recheck/Abnormal Lab/Rx Stated Complaint: Infection Time Seen by Provider: 07/26/21 05:14 Source: patient, RN notes reviewed, old records reviewed Mode of arrival: wheelchair Limitations: no limitations - History of Present Illness Initial Comments: This is a 31-year-old male to the emergency room today. Presents today for evaluation regards to some severe anxiety over recent illness. Patient states he ran out of medication for joint infection as his been moving houses recently has concern that not taking his medication will make his symptoms worse. Patient does have history of drug abuse does admit to drug abuse. 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 ROS Other: All systems not noted in ROS Statement are negative. Past Medical History Additional Past Medical History / Comment(s): Infected cardiac valve per pt a couple months ago-states he never followed up, underwent IV antibiotics at that time but did not complete the course of antibiotics per the patient. 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 Past Anesthesia/Blood Transfusion Reactions: No Reported Reaction Past Psychological History: No Psychological Hx Reported Smoking Status: Current every day smoker Past Alcohol Use History: None Reported Past Drug Use History: Heroin, Methamphetamine - Past Family History Father Additional Family Medical History / Comment(s): Father lives in [place] and had an injury and is disabled. Mother Family Medical History: Vascular Disorder Additional Family Medical History / Comment(s): Mother of a brain aneurysm. Sister(s) Family Medical History: No Reported History Additional Family Medical History / Comment(s): pt lives with his sister. General Exam General appearance: alert, in no apparent distress, anxious Head exam: Present: atraumatic, normocephalic, normal inspection Eye exam: Present: normal appearance, PERRL, EOMI. Absent: scleral icterus, conjunctival injection, periorbital swelling ENT exam: Present: normal exam, mucous membranes moist Neck exam: Present: normal inspection. Absent: tenderness, meningismus, lymphadenopathy Respiratory exam: Present: normal lung sounds bilaterally. Absent: respiratory distress, wheezes, rales, rhonchi, stridor Cardiovascular Exam: Present: normal rhythm, tachycardia, normal heart sounds. Absent: systolic murmur, diastolic murmur, rubs, gallop, clicks GI/Abdominal exam: Present: soft, normal bowel sounds. Absent: distended, tenderness, guarding, rebound, rigid Extremities exam: Present: normal inspection, full ROM, normal capillary refill. Absent: tenderness, pedal edema, joint swelling, calf tenderness Back exam: Present: normal inspection Neurological exam: Present: alert, oriented X3, CN II-XII intact Psychiatric exam: Present: normal affect, normal mood Skin exam: Present: warm, dry, intact, normal color. Absent: rash Course Vital Signs 07/26/21 07/26/21 04:46 06:49 Temperature 98.9 F Pulse Rate 120 H 102 H Respiratory 19 20 Rate Blood Pressure 106/73 106/73 O2 Sat by Pulse 98 96 Oximetry - Reevaluation(s) Reevaluation #1: Medical record is reviewed Patient symptoms are significantly improved here in the ER Patient informed of results and questions are answered Patient is in no acute distress Medical Decision Making - Medical Decision Making 31 male to the emergency department for evaluation patient presents is reevaluation of possible infection, patient denies recent drug abuse. Patient is without fever here in the ER, symptoms otherwise negative and he feels improved, we'll continue amoxicillin which is requesting refill of prescription as he lost his prescription - Radiology Data Radiology results: report reviewed (Chest x-rays negative for acute disease), image reviewed Disposition Clinical Impression: Left hip pain, Chest pain Disposition: HOME SELF-CARE Condition: Fair Instructions (If sedation given, give patient instructions): Hip Pain (ED) Prescriptions: Amoxic-Pot Clav 875-125Mg [Augmentin 875-125] 1 tab PO Q12HR #20 tablet Is patient prescribed a controlled substance at d/c from ED?: No Referrals: None,Stated [Primary Care Provider] - 1-2 days
--- NOTE | 2021-07-26 06:12 | XR ---
EXAMINATION TYPE: XR chest 1V portable DATE OF EXAM: 07/26/2021 COMPARISON: NONE HISTORY: Chest pain TECHNIQUE: Single view FINDINGS: There is no heart failure. There is some minimal linear density at the lung bases. There ar e no hilar masses. Mediastinum is normal. IMPRESSION: Subsegmental atelectasis at the lung bases is mostly cleared compared to yesterday.
[2021-07-26 06:55] VITALS: PULSE 102; RESP 20
== END 2021-07-26 07:10 | disposition home or self-care (01) ==
LOC: EC 04:45
DX: R07.9 Chest pain, unspecified (principal); M25.552 Pain in left hip; F17.200 Nicotine dependence, unspecified, uncomplicated; F19.11 Other psychoactive substance abuse, in remission; Z88.1 Allergy status to other antibiotic agents
CPT/HCPCS: 99283; 96372; 71045; J2270

== ENCOUNTER 2021-09-08 16:48 | Emergency (ER) | payer MEDICARE, OTHER ==
[2021-09-08 17:34] VITALS: BP 136/95; PULSE 115; RESP 20; TEMP 97.9
--- NOTE | 2021-09-08 19:45 | XR ---
Result: Clinical History: Pain and swelling. Comparison: None available. Technique: Frontal and lateral views of the left tibia and fibula. Findings: The bone mineralization is appropriate for age. There is no acute fracture or dislocation. The visualized osseous structures are in anatomic alignme nt. The joint spaces are preserved. No radiographic evidence for osteomyelitis or soft tissue gas. Impression: No acute osseous abnormality.
[2021-09-08] MEDS ORDERED: KETOROLAC 15 MG/ML 1 ML VIAL IM STA (19:52)
[2021-09-08] MEDS ORDERED: SULFAMETH-TMP DS STARTER PACK 2 TAB BTL PO STA (20:08)
[2021-09-08] MEDS ORDERED: CEPHALEXIN 500MG STARTER PACK 4 CAP BTL PO STA (20:08)
--- NOTE | 2021-09-08 20:08 | ED ---
General Adult HPI - General Chief complaint: Recheck/Abnormal Lab/Rx Stated complaint: Extremity Wounds, Lower Legs Time Seen by Provider: 09/08/21 19:03 Source: patient, EMS, RN notes reviewed Mode of arrival: EMS Limitations: no limitations - History of Present Illness Initial comments: This a 31-year-old male presents emergency Department chief complaint of left leg infection. Patient states that he isn't sure when exactly started. Patient does admit that he is an IV drug user, has been abusing recently. Patient is currently withdrawing. Patient denies any fevers chills no joint pain. Patient states there is redness and skin tears from his lower extremity. He does admit to heroin use he states he is not injected into his leg though. Patient has no chest pain or shortness breath no headache or dizziness. - Related Data Previous Rx's Medication Instructions Recorded Amoxic-Pot Clav 875-125Mg 1 tab PO Q12HR #20 tablet 07/26/21 [Augmentin 875-125] Cephalexin [Keflex] 500 mg PO Q6HR #40 cap 09/08/21 Sulfamethox-Tmp 800-160Mg [Bactrim 1 each PO Q12HR #20 tab 09/08/21 Ds] Allergies Allergy/AdvReac Type Severity Reaction Status Date / Time tramadol [From Ultram] AdvReac Mild Unknown Verified 06/22/21 22:40 Review of Systems ROS Statement: Those systems with pertinent positive or pertinent negative responses have been documented in the HPI. ROS Other: All systems not noted in ROS Statement are negative. Past Medical History Additional Past Medical History / Comment(s): Infected cardiac valve per pt a couple months ago-states he never followed up, underwent IV antibiotics at that time but did not complete the course of antibiotics per the patient. 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 Past Anesthesia/Blood Transfusion Reactions: No Reported Reaction Past Psychological History: No Psychological Hx Reported Smoking Status: Current every day smoker Past Alcohol Use History: None Reported Past Drug Use History: Heroin, Methamphetamine - Past Family History Father Additional Family Medical History / Comment(s): Father lives in [place] and had an injury and is disabled. Mother Family Medical History: Vascular Disorder Additional Family Medical History / Comment(s): Mother of a brain aneurysm. Sister(s) Family Medical History: No Reported History Additional Family Medical History / Comment(s): pt lives with his sister. General Exam General appearance: alert, in no apparent distress Head exam: Present: atraumatic, normocephalic, normal inspection Eye exam: Present: normal appearance, PERRL, EOMI. Absent: scleral icterus, conjunctival injection, periorbital swelling ENT exam: Present: normal exam, mucous membranes moist Neck exam: Present: normal inspection, full ROM. Absent: tenderness, meningismus, lymphadenopathy Respiratory exam: Present: normal lung sounds bilaterally. Absent: respiratory distress, wheezes, rales, rhonchi, stridor Cardiovascular Exam: Present: normal rhythm, tachycardia, normal heart sounds. Absent: systolic murmur, diastolic murmur, rubs, gallop, clicks Skin exam: Present: other (Lower extremity sores, erythema noted, pulses equal bilaterally no fluctuant abscess.) Course Vital Signs 09/08/21 17:19 Temperature 97.9 F Pulse Rate 115 H Respiratory 20 Rate Blood Pressure 136/95 O2 Sat by Pulse 99 Oximetry Medical Decision Making - Medical Decision Making Patient is afebrile, patient does have evidence of infections on his lower extremities that some appear to be chronic in nature. Patient does not have any evidence of osteomyelitis, patient is currently withdrawing from heroin as he is tachycardic. Patient did receive Toradol, discharged on antibiotics. Disposition Clinical Impression: Left leg cellulitis, Leg ulcer, left Disposition: HOME SELF-CARE Condition: Stable Instructions (If sedation given, give patient instructions): Cellulitis (ED) Additional Instructions: Please return to the Emergency Department if symptoms worsen or any other concerns. Prescriptions: Sulfamethox-Tmp 800-160Mg [Bactrim Ds] 1 each PO Q12HR #20 tab Cephalexin [Keflex] 500 mg PO Q6HR #40 cap Is patient prescribed a controlled substance at d/c from ED?: No Referrals: None,Stated [Primary Care Provider] - 1-2 days Time of Disposition: 20:07
== END 2021-09-08 21:31 | disposition home or self-care (01) ==
LOC: EC 16:48
DX: L03.116 Cellulitis of left lower limb (principal); L97.829 Non-pressure chronic ulcer of other part of left lower leg with unspecified severity; F11.20 Opioid dependence, uncomplicated; F17.200 Nicotine dependence, unspecified, uncomplicated; Z88.5 Allergy status to narcotic agent
CPT/HCPCS: 99284; 96372; 73590; J1885

== ENCOUNTER 2022-06-07 11:28 | Inpatient (IN) | payer MEDICARE, OTHER ==
[2022-06-07] MEDS ORDERED: SODIUM CHLORIDE 0.9% 1,000 ML IV STA (11:33)
[2022-06-07] MEDS ORDERED: levETIRAcetam IV 1,500 MG in SALINE 1 100ML.BAG IVPB STA (11:34)
[2022-06-07] MEDS ORDERED: MIDAZOLAM 1 MG/ML 5 ML VIAL IV STA (11:41)
[2022-06-07] MEDS ORDERED: ETOMIDATE 2 MG/ML 10 ML VIAL IVP STA (11:42)
[2022-06-07] MEDS ORDERED: SUCCINYLCHOLINE CHLORIDE 200 MG/10 ML VIAL IV STA (11:48)
--- NOTE | 2022-06-07 11:55 | ED ---
General Adult HPI - General Chief complaint: Overdose Stated complaint: Unresponsive Source: patient, RN notes reviewed, old records reviewed Mode of arrival: EMS Limitations: altered mental status - History of Present Illness Initial comments: 32-year-old male presents in extremis. Brought in by EMS after being found unresponsive. Patient was last seen well about 20 minutes prior to arrival according to EMS is to be around 11:00. He has a history of IV drug abuse but there was no reported history of drug abuse today. EMS had reported dilated right pupil, right gaze deviation, and posturing. He had been completely unresponsive with tachypnea. He was hypoxic. Upon arrival the patient is cyanotic, nonresponsive no purposeful movements. - Related Data Previous Rx's Medication Instructions Recorded Amoxic-Pot Clav 875-125Mg 1 tab PO Q12HR #20 tablet 07/26/21 [Augmentin 875-125] Cephalexin [Keflex] 500 mg PO Q6HR #40 cap 09/08/21 Sulfamethox-Tmp 800-160Mg [Bactrim 1 each PO Q12HR #20 tab 09/08/21 Ds] Allergies Allergy/AdvReac Type Severity Reaction Status Date / Time tramadol [From Ultram] AdvReac Mild Unknown Verified 06/22/21 22:40 Review of Systems ROS Statement: Those systems with pertinent positive or pertinent negative responses have been documented in the HPI. ROS Other: All systems not noted in ROS Statement are negative. Past Medical History Additional Past Medical History / Comment(s): Infected cardiac valve per pt a couple months ago-states he never followed up, underwent IV antibiotics at that time but did not complete the course of antibiotics per the patient. 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 Past Anesthesia/Blood Transfusion Reactions: No Reported Reaction Past Psychological History: No Psychological Hx Reported Smoking Status: Current every day smoker Past Alcohol Use History: None Reported Past Drug Use History: Heroin, Methamphetamine - Past Family History Father Additional Family Medical History / Comment(s): Father lives in [place] and had an injury and is disabled. Mother Family Medical History: Vascular Disorder Additional Family Medical History / Comment(s): Mother of a brain aneurysm. Sister(s) Family Medical History: No Reported History Additional Family Medical History / Comment(s): pt lives with his sister. General Exam Limitations: altered mental status General appearance: obtunded, in distress Eye exam: Present: other (Right gaze deviation, right pupil is 7 mm nonreactive, left pupil 3 mm and sluggish) ENT exam: Present: other (() Neck exam: Present: other (JVD) Respiratory exam: Present: respiratory distress Cardiovascular Exam: Present: normal rhythm, tachycardia GI/Abdominal exam: Absent: distended, tenderness, guarding Extremities exam: Absent: pedal edema Neurological exam: Present: motor sensory deficit (Patient will have spontaneous movements of the right upper extremity, he does not withdrawal to pain in any extremity. He has a right gaze deviation and a nonreactive dilated right pupil). Absent: alert, oriented X3, CN II-XII intact Skin exam: Present: cyanosis Course Vital Signs 06/07/22 06/07/22 06/07/22 11:31 11:39 11:43 Temperature 98.0 F Pulse Rate 73 114 H Respiratory 32 H 32 H Rate Blood Pressure 161/117 172/133 O2 Sat by Pulse 97 96 Oximetry Fraction of 50 Inspired Oxygen (FIO2) 06/07/22 06/07/22 06/07/22 11:47 11:51 11:57 Temperature Pulse Rate 117 H 112 H Respiratory 24 22 Rate Blood Pressure 143/100 122/98 O2 Sat by Pulse 97 97 Oximetry Fraction of 100 Inspired Oxygen (FIO2) 06/07/22 06/07/22 06/07/22 12:10 12:21 12:30 Temperature Pulse Rate 105 H 107 H 109 H Respiratory 20 20 18 Rate Blood Pressure 129/111 148/99 134/100 O2 Sat by Pulse 98 98 100 Oximetry Fraction of Inspired Oxygen (FIO2) 06/07/22 06/07/22 06/07/22 12:38 12:58 13:11 Temperature Pulse Rate 103 H 71 Respiratory 26 H 26 H Rate Blood Pressure 133/103 134/103 O2 Sat by Pulse 100 100 Oximetry Fraction of 30 Inspired Oxygen (FIO2) 06/07/22 06/07/22 06/07/22 13:55 14:12 14:33 Temperature Pulse Rate 88 80 62 Respiratory 24 24 24 Rate Blood Pressure 147/111 154/103 142/118 O2 Sat by Pulse 98 98 97 Oximetry Fraction of Inspired Oxygen (FIO2) 06/07/22 06/07/22 14:51 15:54 Temperature Pulse Rate 92 87 Respiratory 18 26 H Rate Blood Pressure 154/113 147/110 O2 Sat by Pulse 97 98 Oximetry Fraction of Inspired Oxygen (FIO2) - Reevaluation(s) Reevaluation #1: 06/07/22 11:40 Code stroke activated, case discussed with Dr. Pollard at the onset. Reevaluation #2: 06/07/22 12:22 Further history obtained from the sister that the patient complained of severe headache at 4 AM this morning. As well as vision changes. Reevaluation #3: 06/07/22 12:30 Repeat neuro exam, upgoing Babinski bilaterally. His right pupil is fixed and dilated, left pupil is irregular and nonreactive. Reevaluation #4: 06/07/22 13:[address] Pollard was able to speak with the family regarding this devastating intracranial hemorrhage. He does recommend a trial of mannitol however he feels this will likely not make a difference. He does not recommend transfer at this time due to the devastating nature of this patient's intracranial hemorrhage. Recommends comfort care. Reevaluation #5: 06/07/22 13:43 Case again discussed with Dr. Pollard is informed of the nonimprovement in neurologic exam. At this time we discussed the possibility of [facility] and comfort care. EKG Findings - EKG Comments: EKG Findings:: Sinus rhythm with ectopy, rate of 88, normal NC interval, QRS duration 112, QTC 472, no ST segment elevation. Procedures - Central Line Placement Right Femoral Consent Obtained: emergent situation Patient Placed on Monitor/Pulse Ox: Yes MD Prep: mask, gloves Central Line Prep: Chlorhexidine scrub Ultrasound Used for Placement: No Central Line Lumen Inserted: triple Bloods Obtained for Lab: Yes Central Line Position: good blood return, all ports aspirated, flushed, capped, sutured in place with 2-0 silk Dressing Applied: Tegaderm Patient Tolerated Procedure: well Complications: none - Intubation Sedative: Etomidate Mg Given: 10 Paralytic: Succinylcholine Mg Given: 60 Laryngoscope: Evie Size: 3 ET Tube Size: 7.5 ET Tube Uncuffed: No Tube Secured Depth (cm): 23 Tube Secured Location: lips Tube Placement Confirmation: visualized tube passing through cords, equal breath sounds bilaterally, no breath sounds over epigastrium, confirmation by capnometry Patient Tolerated Procedure: well Intubation Complications: none Medical Decision Making - Medical Decision Making 32-year-old male presented in extremis, altered, cyanotic, tachypnea, patient had right-sided gaze deviation and blown right pupil. The left pupil was initially reactive however despite measures in the emergency department he developed a dilated nonreactive bilateral pupils. He has no gag or cough reflex. Occasionally the patient is some bilateral twitching of the lower extremities without purposeful movement no pain, no localization. Head CT showing a large intraparenchymal hemorrhage with vasogenic edema, midline shift, intraventricular extension. He's is hyperventilated on the ventilator he's given mannitol. He is given Keppra. Dr. Pollard was able to evaluate the patient on the stroke robot and has informed the patient family that there is no chance of a meaningful recovery. He recommends comfort care. I was able to discuss this with the family at length and was able to discuss case with [facility]. They state that the patient is an organ donor and recommended supportive care wall awaiting a formal evaluation. They are sending a bilingual inside sales representative to the hospital for evaluation. Patient will be continued on the ventilator and IV fluids awaiting this assessment. Both the admitting physician and Dr. Stuart the associate professor of musicology are aware of this plan. The patient should not be resuscitated if cardiac event should occur. - Lab Data Result diagrams: 06/07/22 11:40 06/07/22 11:40 Lab Results 06/07/22 06/07/22 06/07/22 Range/Units 11:40 11:40 11:40 WBC 19.6 H (3.8-10.6) k/uL RBC 5.74 (4.30-5.90) m/uL Hgb 13.7 (13.0-17.5) gm/dL Hct 47.1 (39.0-53.0) % MCV 82.1 (80.0-100.0) fL MCH 23.8 L (25.0-35.0) pg MCHC 29.0 L (31.0-37.0) g/dL RDW 17.7 H (11.5-15.5) % Plt Count 229 (150-450) k/uL MPV 7.1 Neutrophils % (Manual) 54 % Band Neuts % (Manual) 2 % Lymphocytes % (Manual) 38 % Monocytes % (Manual) 4 % Eosinophils % (Manual) 1 % Basophils % (Manual) 1 % Neutrophils # (Manual) 10.90 H (1.3-7.7) k/uL Lymphocytes # (Manual) 7.45 H (1.0-4.8) k/uL Monocytes # (Manual) 0.78 (0-1.0) k/uL Eosinophils # (Manual) 0.20 (0-0.7) k/uL Basophils # (Manual) 0.20 (0-0.2) k/uL Nucleated RBCs 0 (0-0) /100 WBC Manual Slide Review Performed Hypochromasia Marked Anisocytosis Slight PT 15.3 H (9.0-12.0) sec INR 1.5 H (<1.2) APTT 28.0 (22.0-30.0) sec Sample Site ABG pH (7.35-7.45) ABG pCO2 (35-45) mmHg ABG pO2 (83-108) mmHg ABG HCO3 (21-25) mmol/L ABG Total CO2 (19-24) mmol/L ABG O2 Saturation (94-97) % ABG Base Excess mmol/L Harshil Test FiO2 % Sodium 142 (137-145) mmol/L Potassium 4.5 (3.5-5.1) mmol/L Chloride 110 H (98-107) mmol/L Carbon Dioxide 13 L (22-30) mmol/L Anion Gap 19 mmol/L BUN 21 H (9-20) mg/dL Creatinine 0.92 (0.66-1.25) mg/dL Est GFR (CKD-EPI)AfAm >90 (>60 ml/min/1.73 sqM) Est GFR (CKD-EPI)NonAf >90 (>60 ml/min/1.73 sqM) Glucose 117 H (74-99) mg/dL Calcium 9.6 (8.4-10.2) mg/dL Total Bilirubin 0.7 (0.2-1.3) mg/dL AST 22 (17-59) U/L ALT 11 (4-49) U/L Alkaline Phosphatase 309 H (38-126) U/L Troponin I (0.000-0.034) ng/mL Total Protein 10.4 H (6.3-8.2) g/dL Albumin 4.8 (3.5-5.0) g/dL Urine Color Urine Appearance (Clear) Urine pH (5.0-8.0) Ur Specific [place] (1.001-1.035) Urine Protein (Negative) Urine Glucose (UA) (Negative) Urine Ketones (Negative) Urine Blood (Negative) Urine Nitrite (Negative) Urine Bilirubin (Negative) Urine Urobilinogen (<2.0) mg/dL Ur Leukocyte Esterase (Negative) Urine RBC (0-5) /hpf Urine WBC (0-5) /hpf Ur Squamous Epith Cells (0-4) /hpf Hyaline Casts (0-2) /lpf Granular Casts (0) /lpf Urine Mucus (None) /hpf Urine Opiates Screen (NotDetected) Ur Oxycodone Screen (NotDetected) Urine Methadone Screen (NotDetected) Ur Propoxyphene Screen (NotDetected) Ur Barbiturates Screen (NotDetected) U Tricyclic Antidepress (NotDetected) Ur Phencyclidine Scrn (NotDetected) Ur Amphetamines Screen (NotDetected) U Methamphetamines Scrn (NotDetected) U Benzodiazepines Scrn (NotDetected) Urine Cocaine Screen (NotDetected) U Marijuana (THC) Screen (NotDetected) 06/07/22 06/07/22 06/07/22 Range/Units 11:40 11:51 13:04 WBC (3.8-10.6) k/uL RBC (4.30-5.90) m/uL Hgb (13.0-17.5) gm/dL Hct (39.0-53.0) % MCV (80.0-100.0) fL MCH (25.0-35.0) pg MCHC (31.0-37.0) g/dL RDW (11.5-15.5) % Plt Count (150-450) k/uL MPV Neutrophils % (Manual) % Band Neuts % (Manual) % Lymphocytes % (Manual) % Monocytes % (Manual) % Eosinophils % (Manual) % Basophils % (Manual) % Neutrophils # (Manual) (1.3-7.7) k/uL Lymphocytes # (Manual) (1.0-4.8) k/uL Monocytes # (Manual) (0-1.0) k/uL Eosinophils # (Manual) (0-0.7) k/uL Basophils # (Manual) (0-0.2) k/uL Nucleated RBCs (0-0) /100 WBC Manual Slide Review Hypochromasia Anisocytosis PT (9.0-12.0) sec INR (<1.2) APTT (22.0-30.0) sec Sample Site Right Radial ABG pH 7.38 (7.35-7.45) ABG pCO2 33 L (35-45) mmHg ABG pO2 185 H (83-108) mmHg ABG HCO3 19 L (21-25) mmol/L ABG Total CO2 20 (19-24) mmol/L ABG O2 Saturation 100.0 H (94-97) % ABG Base Excess -5.7 mmol/L Harshil Test Yes FiO2 50 % Sodium (137-145) mmol/L Potassium (3.5-5.1) mmol/L Chloride (98-107) mmol/L Carbon Dioxide (22-30) mmol/L Anion Gap mmol/L BUN (9-20) mg/dL Creatinine (0.66-1.25) mg/dL Est GFR (CKD-EPI)AfAm (>60 ml/min/1.73 sqM) Est GFR (CKD-EPI)NonAf (>60 ml/min/1.73 sqM) Glucose (74-99) mg/dL Calcium (8.4-10.2) mg/dL Total Bilirubin (0.2-1.3) mg/dL AST (17-59) U/L ALT (4-49) U/L Alkaline Phosphatase (38-126) U/L Troponin I <0.012 (0.000-0.034) ng/mL Total Protein (6.3-8.2) g/dL Albumin (3.5-5.0) g/dL Urine Color Yellow Urine Appearance Clear (Clear) Urine pH 6.0 (5.0-8.0) Ur Specific [place] 1.023 (1.001-1.035) Urine Protein 2+ H (Negative) Urine Glucose (UA) Negative (Negative) Urine Ketones Negative (Negative) Urine Blood Large H (Negative) Urine Nitrite Negative (Negative) Urine Bilirubin Negative (Negative) Urine Urobilinogen 2.0 (<2.0) mg/dL Ur Leukocyte Esterase Trace H (Negative) Urine RBC 109 H (0-5) /hpf Urine WBC 6 H (0-5) /hpf Ur Squamous Epith Cells 1 (0-4) /hpf Hyaline Casts 8 H (0-2) /lpf Granular Casts 1 (0) /lpf Urine Mucus Occasional H (None) /hpf Urine Opiates Screen Not Detected (NotDetected) Ur Oxycodone Screen Not Detected (NotDetected) Urine Methadone Screen Detected H (NotDetected) Ur Propoxyphene Screen Not Detected (NotDetected) Ur Barbiturates Screen Not Detected (NotDetected) U Tricyclic Antidepress Not Detected (NotDetected) Ur Phencyclidine Scrn Not Detected (NotDetected) Ur Amphetamines Screen Not Detected (NotDetected) U Methamphetamines Scrn Not Detected (NotDetected) U Benzodiazepines Scrn Not Detected (NotDetected) Urine Cocaine Screen Not Detected (NotDetected) U Marijuana (THC) Screen Detected H (NotDetected) Disposition Clinical Impression: ICH (intracerebral hemorrhage), Herniation syndrome, End of life care Disposition: ADMITTED IP TO THIS [facility] Condition: Undetermined Is patient prescribed a controlled substance at d/c from ED?: No Referrals: None,Stated [Primary Care Provider] - 1-2 days Time of Disposition: 15:00
--- NOTE | 2022-06-07 11:57 | XR ---
EXAMINATION TYPE: XR chest 1V portable DATE OF EXAM: 06/07/2022 COMPARISON: 07/26/2021 INDICATION: Acute mental status change TECHNIQUE: Single frontal view of the chest is obtained. FINDINGS: The heart size is mildly prominent. The pulmonary vasculature is somewhat prominent. There is interval development of a consolidation within the lateral right lung. This measures 3.7 cm. Underlying mass is not excluded. This should be followed to clearing. The endotracheal tube is present with the tip 5.9 cm above the mukesh. IMPRESSION: 1. Mild cardiomegaly with some prominence of pulmonary vascular markings. Consider volume overload. 2. Peripheral consolidation right lower lung field. Pneumonia is favored within the differential. Thi s should be followed to clearing.
[2022-06-07 12:00] LABS: ALT 11 U/L (4-49); AST 22 U/L (17-59); African American GFR (CKD) >90 (>60 ml/min/1.73 sqM); Albumin 4.8 g/dL (3.5-5.0); Alkaline Phosphatase 309 U/L (38-126); Anion Gap 19 mmol/L; Blood Urea Nitrogen 21 mg/dL (9-20); Calcium 9.6 mg/dL (8.4-10.2); Carbon Dioxide 13 mmol/L (22-30); Chloride 110 mmol/L (98-107); Glucose 117 mg/dL (74-99); Non-African American GFR(CKD) >90 (>60 ml/min/1.73 sqM); Potassium 4.5 mmol/L (3.5-5.1); Sodium 142 mmol/L (137-145); Total Bilirubin 0.7 mg/dL (0.2-1.3); Total Protein 10.4 g/dL (6.3-8.2)
[2022-06-07 12:04] LABS: INR 1.5 (<1.2); Prothrombin Time 15.3 sec (9.0-12.0)
[2022-06-07 12:15] LABS: Anisocytosis Slight; HCT 47.1 % (39.0-53.0); HGB 13.7 gm/dL (13.0-17.5); Hypochromasia Marked; MCH 23.8 pg (25.0-35.0); MCV 82.1 fL (80.0-100.0); Mean Platelet Volume 7.1; Platelet Count 229 k/uL (150-450); RBC 5.74 m/uL (4.30-5.90); RDW 17.7 % (11.5-15.5); WBC 19.6 k/uL (3.8-10.6)
[2022-06-07] MEDS ORDERED: DEXAMETHASONE SOD PHOSPHATE 10 MG/ML 1 ML VIAL IV STA (12:16)
--- NOTE | 2022-06-07 12:29 | CT ---
EXAMINATION TYPE: CT brain wo con for TPA DATE OF EXAM: 06/07/2022 COMPARISON: None INDICATION: Unresponsive DLP: 1103.6 mGycm, Automated exposure control for dose reduction was used. CONTRAST: None CT of the brain is performed utilizing 3 mm thick sections through the posterior fossa and 3 mm thick sections through the remaining calvarium. Study is performed within 24 hours of arrival to the hosp ital. There is a large parieto-occipital intraparenchymal hemorrhage estimated to measure 7 x 4 cm. This gutierrez s significant mass effect with midline shift estimated at 1.9 cm. Hemorrhage appears to be decompress ing into the ventricles. Contrast is evident within the right lateral ventricle minimal in the left l ateral ventricle medially, through the third ventricle and within the fourth ventricle. There is effa cement of the right ambient cistern. Some early temporal horn dilatation is evident on the left. Hemo rrhages within the right temporal horn lateral ventricle. No mass lesion is evident. There is some hypodensity surrounding the hemorrhage. Paranasal sinuses and mastoid air cells within the [id number] are clear. IMPRESSIONS: 1. 4 x 7 cm right parietal occipital hemorrhage decompressing into the ventricles. This is creating a midline shift of 1.9 cm. Some early hydrocephalus is evident with the left lateral ventricle tempo ral horn dilatation. 2. There is some effacement of the right ambient cistern. 3. Preliminary results were called to the emergency room physician by Dr. Thakur by telephone 1220 h ours 06/07/2022
--- NOTE | 2022-06-07 12:38 | CT ---
EXAMINATION TYPE: CT angio head neck DATE OF EXAM: 06/07/2022 HISTORY: Unresponsive COMPARISON: None CT DLP: 478.6 mGycm. Automated Exposure Control for Dose Reduction was Utilized. TECHNIQUE: CTA scan of the neck is performed with IV Contrast, patient injected with 65 mL of Isovue 370, axial images are obtained, coronal and sagittal reformatted images are reviewed. Three-D recons tructed images are created on an independent workstation and reviewed. Source images are reviewed. FINDINGS: Carotid/Vascular Structures: There is a three-vessel arch. Common carotid arteries are patent. Caroti d bifurcations appear normal. No significant flow-limiting stenosis of the internal carotid arteries are evident. The vertebral arteries are codominant. Cervical of [place]: Vertebral basilar system appears normal. Posterior cerebral vasculature is unrema rkable. Internal carotid arteries bifurcate normally into A1 and M1 segments. A2 segments are normal. The anterior communicating artery is patent. Posterior communicating arteries are not identified. Th e proximal M2 segments appear unremarkable. Higher vasculature into the right parietal and occipital regions however is attenuated and small. No vascular malformation or abrupt cutoff is identified. See CT brain report same date. Other: Bilateral apical lung nodules are present measuring 1 cm on the posterior right and 1.1 cm in the posterior left lung apices within the [id number]. Series 405 image 124 additional small nodule may be right apex measuring 0.5 cm. Series 405 image 139. Patient is intubated and the tip is above the mukesh.. Nasogastric tube is present. IMPRESSION: 1. No flow-limiting stenosis bilateral carotid bifurcations. 2. Normal [id number] of [place] 3. Large right parietal occipital hemorrhage, adjacent vascular structures appear somewhat attenuated at this level without an abrupt cut off or vascular malformation identified NASCET criteria was used in interpretation of this exam?
[2022-06-07] MEDS ORDERED: SALINE 1 500ML.BAG with MANNITOL 20% PMX 350 ML IV ONE (12:45)
[2022-06-07 12:51] LABS: Band Neutrophils % 2 %; Lymphocytes # (M) 7.45 k/uL (1.0-4.8); Monocytes # (M) 0.78 k/uL (0-1.0); Neutrophils % (M) 54 %; Nucleated Red Blood Cells 0 /100 WBC (0-0); Total Cells Counted 100
[2022-06-07 13:01] LABS: Appearance,Urine Clear (Clear); Bilirubin,Urine Negative (Negative); Blood,Urine Large (Negative); Color,Urine Yellow; Glucose,Urine (UA) Negative (Negative); Granular Casts,Urine 1 /lpf (0); Hyaline Casts,Urine 8 /lpf (0-2); Ketones,Urine Negative (Negative); Leukocyte Esterase,Urine Trace (Negative); Mucus,Urine Occasional /hpf; Nitrite,Urine Negative (Negative); Protein,Urine 2+ (Negative); RBC,Urine 109 /hpf (0-5); Specific Gravity,Urine 1.023 (1.001-1.035); Squamous Epithelial Cell,Urine 1 /hpf (0-4); WBC,Urine 6 /hpf (0-5)
[2022-06-07 13:07] LABS: ABG Base Excess -5.7 mmol/L; ABG HCO3 19 mmol/L (21-25); ABG PCO2 33 mmHg (35-45); ABG PH 7.38 (7.35-7.45); ABG PO2 185 mmHg (83-108); ABG TCO2 20 mmol/L (19-24); Allen Test Performed? Yes
[2022-06-07 13:17] LABS: Amphetamine Screen,Urine Not Detected (NotDetected); Barbiturate Screen,Urine Not Detected (NotDetected); Benzodiazepines Screen,Urine Not Detected (NotDetected); Cocaine Screen,Urine Not Detected (NotDetected); Methadone Screen, Urine Detected (NotDetected); Opiate Screen,Urine Not Detected (NotDetected); Oxycodone Screen, Urine Not Detected (NotDetected); Phencyclidine Screen,Urine Not Detected (NotDetected); Tricyclic Antidepressant,Urine Not Detected (NotDetected); Urn Cannabinoid Scrn Detected (NotDetected)
[2022-06-07] MEDS: SODIUM CHLORIDE 0.9% 1,000 ML IV SCH ×2 (14:48→17:27)
--- NOTE | 2022-06-07 15:32 | P.HPIM ---
History of Present Illness H&P Date: 06/07/22 Chief Complaint: Unresponsive Patient is a 32-year-old male with a past medical history of IV drug abuse who was brought in by EMS after being found unresponsive. Currently there is no family at bedside. History obtained from patient's chart. Sister states that patient had been complaining of headache at 4 AM in the morning and some vision changes. Then around 11AM he became unresponse. When EMS arrived patient was cyanotic nonresponsive with no purposeful movement. In ED code stroke was activated. Patient had a CTA that showed no significant stenosis. Patient had a CT head that showed large right parieto-occipital hemorrhage. On exam patient had upgoing Babinski's sign and bilateral dilated pupils. spoke with the family regarding poor prognosis. Family is deciding on gift of life versus comfort care. Patient currently off the propofol drip and has no purposeful movement and no gag reflex. He is however moving his lower extremities spontaneously. Review of Systems 10 ROS reviewed and are negative except as noted in HPI Past Medical History Additional Past Medical History / Comment(s): Infected cardiac valve per pt a couple months ago-states he never followed up, underwent IV antibiotics at that time but did not complete the course of antibiotics per the patient. 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 Past Anesthesia/Blood Transfusion Reactions: No Reported Reaction Past Psychological History: No Psychological Hx Reported Smoking Status: Current every day smoker Past Alcohol Use History: None Reported Past Drug Use History: Heroin, Methamphetamine - Past Family History Father Additional Family Medical History / Comment(s): Father lives in [place] and had an injury and is disabled. Mother Family Medical History: Vascular Disorder Additional Family Medical History / Comment(s): Mother of a brain aneurysm. Sister(s) Family Medical History: No Reported History Additional Family Medical History / Comment(s): pt lives with his sister. Medications and Allergies Home Medications Medication Instructions Recorded Confirmed Type Amoxic-Pot Clav 875-125Mg 1 tab PO Q12HR #20 tablet 07/26/21 Rx [Augmentin 875-125] Cephalexin [Keflex] 500 mg PO Q6HR #40 cap 09/08/21 Rx Sulfamethox-Tmp 800-160Mg [Bactrim 1 each PO Q12HR #20 tab 09/08/21 Rx Ds] Allergies Allergy/AdvReac Type Severity Reaction Status Date / Time tramadol [From Ultram] AdvReac Mild Unknown Verified 06/22/21 22:40 Physical Exam Osteopathic Statement: *. No significant issues noted on an osteopathic structural exam other than those noted in the History and Physical/Consult. Vitals: Vital Signs Temp Pulse Resp BP Pulse Ox FiO2 06/07/22 14:51 92 18 154/113 97 06/07/22 14:33 62 24 142/118 97 06/07/22 14:12 80 24 154/103 98 06/07/22 13:55 88 24 147/111 98 06/07/22 13:11 30 06/07/22 12:58 71 26 H 134/103 100 06/07/22 12:38 103 H 26 H 133/103 100 06/07/22 12:30 109 H 18 134/100 100 06/07/22 12:21 107 H 20 148/99 98 06/07/22 12:10 105 H 20 129/111 98 06/07/22 11:57 112 H 22 122/98 97 06/07/22 11:51 100 06/07/22 11:47 117 H 24 143/100 97 06/07/22 11:43 50 06/07/22 11:39 114 H 32 H 172/133 96 06/07/22 11:31 98.0 F 73 32 H 161/117 97 Intake and Output 06/07/22 06/07/22 06/07/22 06:59 14:59 22:59 Intake Total 30.17 Balance 30.17 Intake: Intake, IV Titration 30.17 Amount propofoL 1,000 mg In 30.17 Empty Bag 1 bag @ 5 MCG/ KG/MIN 2.1 mls/hr IV . Q24H [facility] Rx#:[id number] Other: Weight 70 kg General: [Intubated]. Eye: [Dilated bilateral pupils]. HENT: [No gag reflex]. Neck: [Supple, non-tender, no carotid bruits, no JVD, no lymphadenopathy]. Lungs: [Clear to auscultation and percussion]. Heart: [Normal rate, irregular rhythm, no murmur, gallop or edema]. Abdomen: [Soft, non-tender, non-distended, normal bowel sounds, no masses]. Musculoskeletal: [Normal range of motion and strength, no tenderness or swelling]. Neurologic: [Patient spontaneously moving his bilateral lower extremities, no purposeful movements]. Psychiatric: [Unable to assess. Results CBC & Chem 7: 06/07/22 11:40 06/07/22 11:40 Labs: Abnormal Lab Results - Last 24 Hours (Table) 06/07/22 06/07/22 06/07/22 Range/Units 11:40 11:40 11:40 WBC 19.6 H (3.8-10.6) k/uL MCH 23.8 L (25.0-35.0) pg MCHC 29.0 L (31.0-37.0) g/dL RDW 17.7 H (11.5-15.5) % Neutrophils # (Manual) 10.90 H (1.3-7.7) k/uL Lymphocytes # (Manual) 7.45 H (1.0-4.8) k/uL PT 15.3 H (9.0-12.0) sec INR 1.5 H (<1.2) ABG pCO2 (35-45) mmHg ABG pO2 (83-108) mmHg ABG HCO3 (21-25) mmol/L ABG O2 Saturation (94-97) % Chloride 110 H (98-107) mmol/L Carbon Dioxide 13 L (22-30) mmol/L BUN 21 H (9-20) mg/dL Glucose 117 H (74-99) mg/dL Alkaline Phosphatase 309 H (38-126) U/L Total Protein 10.4 H (6.3-8.2) g/dL Urine Protein (Negative) Urine Blood (Negative) Ur Leukocyte Esterase (Negative) Urine RBC (0-5) /hpf Urine WBC (0-5) /hpf Hyaline Casts (0-2) /lpf Urine Mucus (None) /hpf Urine Methadone Screen (NotDetected) U Marijuana (THC) Screen (NotDetected) 06/07/22 06/07/22 Range/Units 11:51 13:04 WBC (3.8-10.6) k/uL MCH (25.0-35.0) pg MCHC (31.0-37.0) g/dL RDW (11.5-15.5) % Neutrophils # (Manual) (1.3-7.7) k/uL Lymphocytes # (Manual) (1.0-4.8) k/uL PT (9.0-12.0) sec INR (<1.2) ABG pCO2 33 L (35-45) mmHg ABG pO2 185 H (83-108) mmHg ABG HCO3 19 L (21-25) mmol/L ABG O2 Saturation 100.0 H (94-97) % Chloride (98-107) mmol/L Carbon Dioxide (22-30) mmol/L BUN (9-20) mg/dL Glucose (74-99) mg/dL Alkaline Phosphatase (38-126) U/L Total Protein (6.3-8.2) g/dL Urine Protein 2+ H (Negative) Urine Blood Large H (Negative) Ur Leukocyte Esterase Trace H (Negative) Urine RBC 109 H (0-5) /hpf Urine WBC 6 H (0-5) /hpf Hyaline Casts 8 H (0-2) /lpf Urine Mucus Occasional H (None) /hpf Urine Methadone Screen Detected H (NotDetected) U Marijuana (THC) Screen Detected H (NotDetected) Assessment and Plan Assessment: Large intraparenchymal hemorrhage History of IV drug use -We'll start patient on IV fentanyl when necessary, IV Ativan when necessary -Resume Keppra -Gift of life notified -[employer] notified CODE STATUS: No code. ED physician spoke with the family regarding CODE STATUS DVT prophylaxis: mechanical Discussed with: Patient, ER, rn Anticipated length of stay > than [address]: home A total of 50minutes was spent on the care of this complex patient more than 50% of the time was spent in counseling and care coordination.
[2022-06-07] MEDS ORDERED: NALOXONE 0.4 MG/ML 1 ML VIAL IV PRN (15:41)
[2022-06-07] MEDS ORDERED: MORPHINE SULFATE 4 MG/ML SYRINGE IV PRN (15:41)
[2022-06-07] MEDS ORDERED: PANTOPRAZOLE 40 MG/10 ML VIAL IV SCH (15:45)
[2022-06-07] MEDS ORDERED: fentaNYL (PF) 50 MCG/ML 2 ML AMP IVP PRN (15:51)
[2022-06-07] MEDS ORDERED: LORazepam 2 MG/ML INJ IV PRN (15:52)
[2022-06-07 16:46] LABS: Glucose,Whole Blood 167 mg/dL (70-110)
[2022-06-07] MEDS ORDERED: levETIRAcetam IV 500 MG in SODIUM CHLORIDE 0.9% 100 ML IVPB SCH (21:00)
[2022-06-07] MEDS ORDERED: fentaNYL (PF). 2,500 MCG in SODIUM CHLORIDE 0.9% 200 ML IV SCH (22:30)
[2022-06-07] MEDS ORDERED: MIDAZOLAM HCL 100 MG in SODIUM CHLORIDE 0.9% 80 ML IV SCH (22:30)
[2022-06-07] MEDS ORDERED: PIPERACILLIN-TAZOBACTAM 4.5 GM in SODIUM CHLORIDE 0.9% 100 ML IVPB STA (22:54)
[2022-06-07 23:23] LABS: Anisocytosis Slight; Basophils % (A) 0 %; Eosinophils % (A) 0 %; HCT 45.7 % (39.0-53.0); HGB 13.2 gm/dL (13.0-17.5); Hypochromasia Marked; Lymphocytes # (A) 0.9 k/uL (1.0-4.8); Lymphocytes % (A) 7 %; MCH 23.6 pg (25.0-35.0); MCV 81.2 fL (80.0-100.0); Mean Platelet Volume 7.5; Microcytosis Slight; Monocytes # (A) 0.2 k/uL (0-1.0); Monocytes % (A) 1 %; Neutrophils # (A) 10.7 k/uL (1.3-7.7); Neutrophils % (A) 90 %; Platelet Count 205 k/uL (150-450); RBC 5.62 m/uL (4.30-5.90); RDW 18.2 % (11.5-15.5); WBC 11.8 k/uL (3.8-10.6)
[2022-06-07 23:36] LABS: Albumin 4.4 g/dL (3.5-5.0); Calcium 9.8 mg/dL (8.4-10.2); Phosphorus 4.2 mg/dL (2.5-4.5); Potassium 5.6 mmol/L (3.5-5.1); Total Bilirubin 0.7 mg/dL (0.2-1.3); Total Protein 9.9 g/dL (6.3-8.2)
[2022-06-07] MEDS ORDERED: NOREPINEPHRINE 8 MG in SODIUM CHLORIDE 0.9% 250 ML IV SCH (23:45)
[2022-06-07 23:47] LABS: Creatine Kinase MB 5.3 ng/mL (0.0-2.4)
[2022-06-07 23:49] LABS: Troponin I 6.13 ng/mL (0.000-0.034)
[2022-06-08 00:10] LABS: INR 1.7 (<1.2); Prothrombin Time 16.9 sec (9.0-12.0)
[2022-06-08] MEDS: SODIUM CHLORIDE 0.9% 1,000 ML IV SCH (00:22)
[2022-06-08 00:29] VITALS: RESP 26
[2022-06-08 01:23] LABS: Bilirubin, Delta 0.6 mg/dL (0.0-0.2); Bilirubin,Unconjugated 0.1 mg/dL (0.0-1.1); Total Bilirubin 0.7 mg/dL (0.2-1.3)
[2022-06-08 01:26] LABS: Appearance,Urine Cloudy (Clear); Bilirubin,Urine Negative (Negative); Blood,Urine Large (Negative); Color,Urine Yellow; Glucose,Urine (UA) Negative (Negative); Ketones,Urine Negative (Negative); Leukocyte Esterase,Urine Negative (Negative); Mucus,Urine Occasional /hpf; Nitrite,Urine Negative (Negative); Protein,Urine 3+ (Negative); RBC,Urine >182 /hpf (0-5); Specific Gravity,Urine 1.028 (1.001-1.035); Squamous Epithelial Cell,Urine 1 /hpf (0-4); Urobilinogen,Urine <2.0 mg/dL (<2.0); WBC,Urine 4 /hpf (0-5)
--- NOTE | 2022-06-08 03:52 | CT ---
EXAMINATION TYPE: CT ChestAbdPelvis wo con DATE OF EXAM: 06/08/2022 COMPARISON: None HISTORY: Gift of life evaluation. no prior on PACS CT DLP: 660.7 mGycm Automated exposure control for dose reduction was used. Images obtained from the thoracic inlet to the floor the pelvis with no contrast. There is bilateral patchy pulmonary interstitial and airspace infiltrates in the mid and lower lung f ields. Heart is enlarged. No pericardial effusion. No pleural effusion or pneumothorax. There is some patchy atelectasis in the posterior lung siddiqui. There are no hilar masses. No mediastinal adenopath y. There is endotracheal tube. There is nasogastric tube in the stomach. Liver spleen stomach appear intact. Bile ducts are not dilated. There are filling defects in the gall bladder that could be gallstones. No evidence of pancreatic mass. There is contrast in the kidneys. No hydronephrosis. Ureters are not dilated. There is no retroperito neri adenopathy. There is Concepcion catheter in the urinary bladder. Bladder distends smoothly. There is old fracture of the left femoral neck with deformity and ballooning of the acetabulum. There is small amount of low-density fluid in the pelvis. No mesenteric edema. No evidence of a bowel obstruction. No evidence of free air. The thoracic and lumbar vertebra appear intact. No compression fracture. Sternum is intact. Bony pelv is is intact. Right hip joint is intact. The length of the right lung is 18 cm. The length of the left lung is 21.8 cm. The transverse costoph renic angle distances 27.5 cm. Liver is moderately enlarged and measures 24.5 cm. The spleen measures 13 cm. The right kidney measures 12.5 cm. The right kidney measures 10 cm. IMPRESSION: Pulmonary infiltrates as above. Hepatomegaly. No evidence of renal mass or obstruction. Moderate cardiomegaly.
[2022-06-08 06:00] VITALS: TEMP 103.1
[2022-06-08 06:02] VITALS: BP 87/50; PULSE 94
[2022-06-08] MEDS ORDERED: PIPERACILLIN-TAZOBACTAM 3.375 GM in SODIUM CHLORIDE 0.9% 100 ML IVPB SCH (12:00)
--- NOTE | 2022-06-10 11:20 | CDI ---
Documentation Clarification Form Date: 06/10/2022 11:02:00 AM From: Becca Pink Admit Date: 06/07/2022 03:44:00 PM Patient Name: Bradley Holm Visit Number: [id number] Discharge Date: 06/08/2022 11:49:00 AM ATTENTION: The Clinical Documentation Specialists (CDI) and [facility] Coding Staff appreciate your assistance in clarifying documentation. Please respond to the clarification below the line at the bottom and electronically sign. The CDI & [facility] Coding staff will review the response and follow-up if needed. Please note: Queries are made part of the Legal Health Record. If you have any questions, please contact the author of this message via ITS. Dr. Jemima Davey Your patient was documented as being hypoxic in ER. Patient was first on Non Rebreather at 15 and then was intubated by ER physician and was on mechanical ventilation. Based on this information and the findings below, is there an additional diagnosis that is clinically appropriate for this patient? History/Risk Factors: Brain hemorrhage with herniation syndrome. History of IV drug use. Tobacco use: tobacco dependent Clinical Indicators: Vital signs: 98.0 F axillary, 114 bpm, 32, 161/117 - 172/133, 97 non- rebreather then intubated Pulse oximetry: 97 non rebreather ABG/CBG: pH 7.38 pO2 185 P CO2 33 Treatment: Mechanical ventilation Is there an additional diagnosis that is clinically appropriate for this patient? [X ] Acute Hypoxic Respiratory Failure (pO2 <60 mm Hg or SpO2 <91% on room air) [ ] Acute Hypercapnic Respiratory Failure (pCO2 >50 and pH <7.35) [ ] Acute on Chronic Respiratory Failure [ ] Chronic Respiratory Failure [ ] Acute Respiratory Distress [ ] Acute Respiratory Insufficiency [ ] Other Diagnosis, please specify [ ] Unable to determine MTDD
== END 2022-06-08 11:49 | disposition expired | DRG 64 ==
LOC: EC 11:28 → 2SICU 15:44
PROVIDERS: ADMIT Internal Medicine; ATTEND Internal Medicine
DX: I61.1 Nontraumatic intracerebral hemorrhage in hemisphere, cortical (principal); G93.5 Compression of brain; J96.01 Acute respiratory failure with hypoxia; G93.6 Cerebral edema; F11.11 Opioid abuse, in remission; H57.04 Mydriasis; Z66 Do not resuscitate; Z86.19 Personal history of other infectious and parasitic diseases; Z86.14 Personal history of Methicillin resistant Staphylococcus aureus infection; Z20.822 Contact with and (suspected) exposure to COVID-19; Z89.622 Acquired absence of left hip joint; R23.0 Cyanosis; Z88.5 Allergy status to narcotic agent; F17.210 Nicotine dependence, cigarettes, uncomplicated; Z82.49 Family history of ischemic heart disease and other diseases of the circulatory system; Z51.5 Encounter for palliative care
CPT/HCPCS: 31500; 36415; 36556; 36600; 70450; 70496; 70498; 71045; 71250; 74176; 80053; 80306; 81001; 82150; 82248; 82550; 82553; 82805; 83690; 83735; 84100; 84484; 85025; 85379; 85384; 85610; 85730; 86850; 86870; 86880; 86900; 86901; 87635; 93005; 94002; 94003; 96361; 96374; 96375; 99285